=== PATIENT | female | born 1970 | race Caucasian/White ===

== ENCOUNTER → 2016-09-22 | Outpatient (CLI) | payer OTHER ==
--- NOTE | 2016-09-22 14:20 | XR ---
EXAMINATION TYPE: XR chest 2V DATE OF EXAM: 09/22/2016 2:12 PM COMPARISON: 12/07/2015 HISTORY: Shortness of breath TECHNIQUE: Frontal and lateral views of the chest are obtained. FINDINGS: There is no focal air space opacity, pleural effusion, or pneumothorax seen. The cardiac silhouette size is within normal limits. The osseous structures are intact. IMPRESSION: No acute cardiopulmonary process.
--- NOTE | 2016-09-22 14:21 | NM ---
EXAMINATION TYPE: NM pul vent and perfuse DATE OF EXAM: 09/22/2016 2:04 PM COMPARISON: NONE HISTORY: Shortness of breath TECHNIQUE: Utilizing inhalation of 68.7 mCi Tc 99m DTPA aerosol and intravenous injection of 5.5 mCi of Tc 99m MAA, ventilation and perfusion images are acquired post injection in multiple projections. FINDINGS: Normal radiotracer distribution is noted in the lungs. There is no evidence of mismatched defects. IMPRESSION: Very low probability for pulmonary embolism.
== END | disposition home or self-care (01) ==
LOC: RADNMMAIN 13:04
PROVIDERS: ATTEND Internal Medicine Pulmonary Disease
DX: J45.909 Unspecified asthma, uncomplicated (principal); I26.99 Other pulmonary embolism without acute cor pulmonale
CPT/HCPCS: 71020; 78582; A9540; A9567

== ENCOUNTER → 2016-09-29 | Outpatient (CLI) | payer OTHER ==
[2016-09-29 12:08] LABS: CH 30.3; CHCM 35.2; HCT 41.5 % (34.0-46.0); HGB 14.2 gm/dL (11.4-16.0); MCH 29.7 pg (25.0-35.0); MCHC 34.3 g/dL (31.0-37.0); MCV 86.6 fL (80.0-100.0); Mean Platelet Volume 7.4; RBC 4.79 m/uL (3.80-5.40); RDW 13.4 % (11.5-15.5); WBC 8.1 k/uL (3.8-10.6)
[2016-09-29 12:33] LABS: Anion Gap 12 mmol/L; Blood Urea Nitrogen 15 mg/dL (7-17); Calcium 9.7 mg/dL (8.4-10.2); Carbon Dioxide 30 mmol/L (22-30); Chloride 100 mmol/L (98-107); Glucose 136 mg/dL (74-99); Non-African American GFR(MDRD) >60 (>60 ml/min/1.73 sqM); Potassium 3.9 mmol/L (3.5-5.1); Sodium 142 mmol/L (137-145)
== END | disposition home or self-care (01) ==
LOC: LABWHC1 11:16
PROVIDERS: ATTEND Internal Medicine Interventional Cardiology
DX: Z01.812 Encounter for preprocedural laboratory examination (principal); R07.9 Chest pain, unspecified; I27.2 Other secondary pulmonary hypertension
CPT/HCPCS: 36415; 80048; 84439; 84443; 85027

== ENCOUNTER 2016-10-17 06:31 | Day surgery (SDC) | payer OTHER ==
[2016-10-14 10:28] VITALS: BMI 37.4
[~2016-10-17 06:31] MED LIST: ALPRAZolam 0.25 MG TAB PO PRN; ASPIRIN 325 MG TAB PO ONE; SODIUM CHLORIDE 0.9% 1,000 ML in EMPTY BAG 1 BAG IV ONE
[2016-10-17 07:17] VITALS: PULSE 80; RESP 20; TEMP 98.4
[2016-10-17] MEDS ORDERED: IV FLUID CONTINUATION 1,000 ML IV ONE (07:20)
[2016-10-17] MEDS ORDERED: LIDOCAINE 2% INJ 20 MG/ML (20 ML MDV) ONE (07:25)
[2016-10-17] MEDS ORDERED: diphenhydrAMINE 50 MG/ML 1 ML VIAL ONE (07:36)
[2016-10-17] MEDS ORDERED: MIDAZOLAM 2 MG/2 ML VIAL ONE (07:36)
[2016-10-17] MEDS ORDERED: diphenhydrAMINE 50 MG/ML 1 ML VIAL IVP ONE (07:46)
[2016-10-17] MEDS: MIDAZOLAM 2 MG/2 ML VIAL IV ONE ×2 (07:46→07:53)
[2016-10-17] MEDS ORDERED: LIDOCAINE 2% INJ 20 MG/ML SQ ONE (07:51)
[2016-10-17 08:18] LABS: Site RV
[2016-10-17 08:18] LABS: Site RA
[2016-10-17 08:19] LABS: Site PA
[2016-10-17 08:24] LABS: Site RV
[2016-10-17] MEDS ORDERED: RX INFO: IV CONTRAST WAS GIVEN 1 EACH MISC MISCELLANE PRN (08:43)
[2016-10-17] MEDS ORDERED: SODIUM CHLORIDE 0.9% 1,000 ML IV SCH ×2 (08:45)
--- NOTE | 2016-10-17 09:22 | CC ---
DATE OF SERVICE: 10/17/2016 PROCEDURE: Right heart catheterization, oxygen saturation and cardiac output measurement. PERFORMED BY: Dr. Skye Cali. CLINICAL INFORMATION: Mrs. Mini Hilton is a 46-year-old lady with significant shortness of breath under the care of pulmonary hypertension specialist, Dr. Banegas. She was advised to have a right heart catheterization to assess precise measurements for pulmonary hypertension assessment. She had a Lexiscan stress test that was negative and her echo revealed preserved systolic function. PROCEDURE NOTE: Under local anesthesia and strict aseptic precautions, an 8-Moldovan introducer was placed in the right femoral artery. I performed a right heart catheterization using a balloon-tipped flotation catheter. Thermodilution cardiac outputs were obtained. I also obtained a Herson cardiac output using an oxygen saturation 96% obtained by pulse oximeter on room air. Patient tolerated the procedure well. The sheath was taken out. Manual compression used to secure hemostasis and she was sent to the room in a stable condition. Results were discussed with the patient and her friend. CARDIAC CATHETERIZATION FINDINGS: The right atrial pressure was 5 mmHg. Right ventricular pressure was 28/5. The pulmonary arterial pressure was 28/13 with a mean of 19. Pulmonary capillary wedge pressure mean was 10 mmHg. This translated into a transpulmonary gradient of 9 mmHg and pulmonary vascular resistance of about 1.3 wood units. The thermodilution cardiac output was 6.7 L and Herson cardiac output was about 5 L. The pulmonary arterial saturation was 73% and I used a femoral arterial saturation of 96% as ( ) value based on pulse oximeter measurement on room air. This patient does not have any significant pulmonary hypertension based on above hemodynamics. Results were discussed with the patient and she will be discharged later on today.
--- NOTE | 2016-10-17 09:27 | LTR ---
October 17, 2016 RE: Mnii Hilton Dear Dr. Banegas, Dr. Bryant and Dr. Valencia: I am hereby sending you a cardiac cath report on Mrs. Mini Hilton. This lady had a right heart catheterization. The hemodynamics suggest that there is no evidence of any pulmonary hypertension. The transpulmonary gradient is 9 mmHg. The pulmonary vascular resistance is normal. Patient tolerated the procedure uneventfully and will be discharged later on today. Thank you for your referral. Please call for questions. With kindest regards. Sincerely yours, WHIT ESTRADA MD
[2016-10-17 14:14] VITALS: BP 116/66
== END 2016-10-17 14:14 | disposition home or self-care (01) ==
LOC: CATHCVL 06:31
PROVIDERS: ATTEND Internal Medicine Interventional Cardiology
DX: I27.2 Other secondary pulmonary hypertension (principal); R06.02 Shortness of breath; R07.89 Other chest pain; E66.9 Obesity, unspecified; Z82.49 Family history of ischemic heart disease and other diseases of the circulatory system; Z68.37 Body mass index [BMI] 37.0-37.9, adult; Z79.899 Other long term (current) drug therapy
CPT/HCPCS: 93451; 85018; 82810; C1894 ×2; C1769 ×2; J2001; J2250; J1200

== ENCOUNTER → 2016-10-30 | Outpatient (CLI) | payer OTHER | END | disposition home or self-care (01) | LOC: LABWHC1 08:39 | PROVIDERS: ATTEND Internal Medicine Sleep Medicine | DX: D86.9 Sarcoidosis, unspecified (principal) | CPT/HCPCS: 36415; 82164 ==

== ENCOUNTER → 2016-11-01 | Outpatient (CLI) | payer OTHER ==
--- NOTE | 2016-11-03 13:10 | PE ---
Nuclear medicine PET/CT HISTORY: Lung carcinoma Patient received 13.6 mCi of F-18 FDG intravenously. Delayed scanning from the skull base through the mid thighs. Localization and attenuation correction CT scan was performed on exam correlated to [facility] CT 13 June 2016 FINDINGS: Neck and chest: There is no evident adenopathy, no suspicious hypermetabolic uptake. No evident lung nodule. No pleural or pericardial effusion. Some strand-like densities may reflect scarring, atelecta sis within the lungs. Abdomen pelvis: There is no adrenal mass. No suspicious hypermetabolic uptake. Liver shows low attenu ation possibly due to fatty infiltration. No retroperitoneal adenopathy. Retroaortic left renal vein. Nonobstructive renal calculus present right kidney measuring only 3 to 4 mm. There is a small hiatal hernia. No suspicious hypermetabolic uptake. Osseous structures: Unremarkable IMPRESSION: No suspicious hypermetabolic uptake.
== END | disposition home or self-care (01) ==
LOC: RADPETMAIN 07:56
PROVIDERS: ATTEND Internal Medicine Sleep Medicine
DX: C34.90 Malignant neoplasm of unspecified part of unspecified bronchus or lung (principal)
CPT/HCPCS: 78815; A9552

== ENCOUNTER 2016-12-12 09:53 | Day surgery (SDC) | payer OTHER ==
[2016-12-10 09:46] VITALS: BMI 37.1
[~2016-12-12 09:53] MED LIST changes: -ALPRAZolam 0.25 MG TAB PO PRN; -ASPIRIN 325 MG TAB PO ONE; +LACTATED RINGERS 1,000 ML IV SCH; -SODIUM CHLORIDE 0.9% 1,000 ML in EMPTY BAG 1 BAG IV ONE
[2016-12-12 10:22] VITALS: TEMP 98.8
[2016-12-12] MEDS ORDERED: LIDOCAINE 1% 20 ML VIAL (10MG/ML) FOR IV START INTRADERMA ONE (10:27)
[2016-12-12] MEDS ORDERED: PROPOFOL 10 MG/ML 20 ML VIAL IV ONE (10:30)
[2016-12-12] MEDS ORDERED: LIDOCAINE 1% INJ 10MG/ML (20 ML MDV) ONE (10:30)
--- NOTE | 2016-12-12 10:32 | P.GSHP ---
History of Present Illness H&P Date: 12/12/16 Chief Complaint: GERD This a 38-year-old female referred from Emma Farrar. Patient presents today for EGD. She's had history of GERD. - Constitutional Constitutional: Reports as per HPI Past Medical History Past Medical History: Eye Disorder, GERD/Reflux, Hypertension, Sleep Apnea/CPAP/ BIPAP Additional Past Medical History / Comment(s): migraines, hx aspiration while under anesthesia,. get SOB, no CPAP yet, NARROW LENS GLAUCOMA History of Any Multi-Drug Resistant Organisms: None Reported Past Surgical History: Breast Surgery, Heart Catheterization, Hysterectomy Additional Past Surgical History / Comment(s): narendra breast reduction, NARENDRA eye laser surgery Past Anesthesia/Blood Transfusion Reactions: Previous Problems w/ Anesthesia, Motion Sickness, Postoperative Nausea & Vomiting (PONV) Additional Past Anesthesia/Blood Transfusion Reaction / Comment(s): aspiration while under anesthesia for colonoscopy Past Psychological History: Anxiety Smoking Status: Never smoker Past Alcohol Use History: Occasional Past Drug Use History: None Reported - Past Family History Brother(s) Family Medical History: Cancer Medications and Allergies Home Medications Medication Instructions Recorded Confirmed Type ALPRAZolam [Xanax] 0.5 mg PO DIRECTED PRN 10/14/16 12/12/16 History Ergocalciferol (Vitamin D2) 50,000 unit PO WE 10/14/16 12/12/16 History [Vitamin D2] Hydrochlorothiazide [Hydrodiuril] 25 mg PO DAILY 10/14/16 12/12/16 History Omeprazole [PriLOSEC] 40 mg PO QAM 10/14/16 12/12/16 History Allergies Allergy/AdvReac Type Severity Reaction Status Date / Time No Known Allergies Allergy Verified 12/12/16 10:16 Surgical - Exam Vital Signs Temp Pulse Resp BP Pulse Ox 98.8 F 83 16 141/83 96 12/12/16 10:16 12/12/16 10:16 12/12/16 10:16 12/12/16 10:16 12/12/16 10:16 - General well developed, no distress - Eyes PERRL - ENT normal pinna - Neck no masses - Respiratory normal expansion - Cardiovascular Rhythm: regular - Abdomen Abdomen: soft, non tender Assessment and Plan Plan: GERD. We'll perform EGD.
--- NOTE | 2016-12-12 10:40 | P.OP ---
Date of Procedure: 12/12/16 Preoperative Diagnosis: GERD Postoperative Diagnosis: Antral gastritis Hiatal hernia Esophagitis Procedure(s) Performed: EGD Anesthesia: MAC Surgeon: Collin Plaza Pathology: other (Antrum esophagus) Condition: stable Disposition: PACU Description of Procedure: Patient's placed on the endoscopy table in the lateral position. She received IV sedation. The gastroscope some placed oropharynx passed in the esophagus and stomach. The scope was then placed through the pylorus. The first and second portion of the duodenum appeared normal. Scope was then brought back the antrum and a biopsy was performed. This appeared mildly inflamed. The scope was unretroflexed and remainder of the stomach appeared normal. There was a hiatal hernia visualized. The GE junction was at 38 cm. The distal esophagus appeared mildly inflamed a biopsies performed. The proximal esophagus appeared normal. Scope was withdrawn for patient.
[2016-12-12 10:44] VITALS: RESP 18
[2016-12-12 11:00] VITALS: BP 122/78; PULSE 88
== END 2016-12-12 11:12 | disposition home or self-care (01) ==
LOC: ORWHC2ENDO 09:53
PROVIDERS: ATTEND Surgery
DX: K29.50 Unspecified chronic gastritis without bleeding (principal); K21.0 Gastro-esophageal reflux disease with esophagitis; K20.0 Eosinophilic esophagitis; K44.9 Diaphragmatic hernia without obstruction or gangrene; F41.9 Anxiety disorder, unspecified; G47.33 Obstructive sleep apnea (adult) (pediatric)
CPT/HCPCS: 88305; 88342; 43239; J2001; J2704

== ENCOUNTER → 2017-03-06 | Outpatient (CLI) | payer OTHER ==
[2017-03-06 13:26] LABS: EKG EKG PERFORMED
[2017-03-06 14:00] LABS: Anion Gap 10 mmol/L; Carbon Dioxide 25 mmol/L (22-30); Chloride 106 mmol/L (98-107); Potassium 4.2 mmol/L (3.5-5.1); Sodium 141 mmol/L (137-145)
== END | disposition home or self-care (01) ==
LOC: LABPAT 13:17
PROVIDERS: ATTEND Surgery
DX: Z01.810 Encounter for preprocedural cardiovascular examination (principal); Z01.812 Encounter for preprocedural laboratory examination
CPT/HCPCS: 36415; 80051; 93005

== ENCOUNTER 2017-03-12 07:40 | Inpatient (IN) | payer OTHER ==
[~2017-03-12 07:40] MED LIST changes: +DEXAMETHASONE SOD PHOSPHATE 10 MG/ML 1 ML VIAL IV ONE; +HEPARIN SODIUM,PORCINE 5,000 UNIT/ML 1 ML VIAL SQ ONE; +ONDANSETRON 4 MG/2 ML VIAL IVP ONE; +ceFAZolin 2 GM in SODIUM CHLORIDE 0.9% 100 ML IVPB ONE
[2017-03-12] MEDS ORDERED: GLYCOPYRROLATE 0.2 MG/ML 2 ML VIAL ONE (09:31)
[2017-03-12] MEDS ORDERED: SUCCINYLCHOLINE CHLORIDE 100 MG/5 ML SYR IV ONE (09:31)
[2017-03-12] MEDS ORDERED: LIDOCAINE 1% INJ 10MG/ML (20 ML MDV) ONE (09:31)
[2017-03-12] MEDS ORDERED: PROPOFOL 10 MG/ML 20 ML VIAL IV ONE (09:31)
[2017-03-12] MEDS ORDERED: fentaNYL (PF) 50 MCG/ML 2 ML AMP ONE (09:31)
[2017-03-12] MEDS ORDERED: NEOSTIGMINE 1 MG/ML 10 ML VIAL ONE (09:31)
[2017-03-12] MEDS ORDERED: VECURONIUM 10 MG VIAL IV ONE (09:31)
[2017-03-12] MEDS ORDERED: MIDAZOLAM 2 MG/2 ML VIAL ONE (09:31)
[2017-03-12] MEDS ORDERED: LIDOCAINE 1% 20 ML VIAL (10MG/ML) FOR IV START INTRADERMA ONE (09:55)
[2017-03-12 10:05] LABS: Basophils % (A) 0 %; CH 30.9; CHCM 35.5; Eosinophils # (A) 0.1 k/uL (0-0.7); Eosinophils % (A) 1 %; HCT 39.3 % (34.0-46.0); HDW 2.83; HGB 13.7 gm/dL (11.4-16.0); Luc % (Auto) 1; Lymphocytes # (A) 1.9 k/uL (1.0-4.8); Lymphocytes % (A) 27 %; MCH 30.5 pg (25.0-35.0); MCHC 34.9 g/dL (31.0-37.0); MCV 87.4 fL (80.0-100.0); Mean Platelet Volume 7.3; Monocytes # (A) 0.3 k/uL (0-1.0); Monocytes % (A) 4 %; Neutrophils # (A) 4.6 k/uL (1.3-7.7); Neutrophils % (A) 66 %; RBC 4.49 m/uL (3.80-5.40); RDW 14.2 % (11.5-15.5); WBC (Perox) 6.38
--- NOTE | 2017-03-12 10:16 | P.GSHP ---
History of Present Illness H&P Date: 03/12/17 Chief Complaint: GERD This a 38-year-old female for referred from Dr. Valencia.The patient has had long-standing problems with reflux esophagitis. The patient underwent recent EGD is found have evidence of esophagitis. Patient has been well informed on the procedure of laparoscopic Bayron fundoplication. The patient is aware the risk of the conversion to the open procedure, risk of injury to the stomach, liver and spleen. The patient is also a risk of recurrent GERD and dysphagia symptoms. The patient understands there is a postoperative diet of full liquids for 2 weeks after surgery. Past Medical History Past Medical History: Asthma, COPD, Eye Disorder, GERD/Reflux, Hypertension, Sleep Apnea/CPAP/BIPAP Additional Past Medical History / Comment(s): migraines, NARROW LENS GLAUCOMA, History of Any Multi-Drug Resistant Organisms: None Reported Past Surgical History: Breast Surgery, Heart Catheterization, Hysterectomy Additional Past Surgical History / Comment(s): narendra breast reduction, NARENDRA eye laser surgery Past Anesthesia/Blood Transfusion Reactions: Previous Problems w/ Anesthesia, Motion Sickness, Postoperative Nausea & Vomiting (PONV) Additional Past Anesthesia/Blood Transfusion Reaction / Comment(s): aspiration while under anesthesia for colonoscopy Smoking Status: Never smoker - Past Family History Brother(s) Family Medical History: Cancer Additional Family Medical History / Comment(s): COLON CANCER Medications and Allergies Home Medications Medication Instructions Recorded Confirmed Type ALPRAZolam [Xanax] 0.5 mg PO BID 10/14/16 03/04/17 History Ergocalciferol (Vitamin D2) 50,000 unit PO WE 10/14/16 03/12/17 History [Vitamin D2] Hydrochlorothiazide [Hydrodiuril] 25 mg PO DAILY 10/14/16 03/12/17 History Omeprazole [PriLOSEC] 40 mg PO QAM 10/14/16 03/12/17 History Albuterol Nebulized [Ventolin 2.5 mg INHALATION Q6H 03/04/17 03/12/17 History Nebulized] Albuterol Sulfate [Ventolin Hfa] 2 puff INHALATION Q6H PRN 03/04/17 03/12/17 History Biotin 20,000 mcg PO DAILY 03/04/17 03/12/17 History SUMAtriptan SUCCINATE [Imitrex] 100 mg PO BID PRN 03/04/17 03/12/17 History hydrOXYzine PAMOATE [Vistaril] 25 mg PO Q6H PRN 03/04/17 03/12/17 History Allergies Allergy/AdvReac Type Severity Reaction Status Date / Time No Known Allergies Allergy Verified 03/12/17 09:30 Surgical - Exam Vital Signs Temp Pulse Resp BP Pulse Ox 98.8 F 83 18 117/80 94 L 03/12/17 09:48 03/12/17 09:48 03/12/17 09:48 03/12/17 09:48 03/12/17 09:48 - General well developed, no distress - Eyes PERRL - ENT normal pinna - Neck no masses - Respiratory normal expansion - Cardiovascular Rhythm: regular - Abdomen Abdomen: soft, non tender Results - Labs 03/12/17 09:57 Assessment and Plan Plan: GERD. We will perform laparoscopic Bayron fundal plication.
[2017-03-12] MEDS ORDERED: BUPIVACAIN-EPI 0.5%-1:200,000 30 ML VIAL SQ ONE (10:54)
[2017-03-12] MEDS ORDERED: HYDROmorphone 1 MG/ML 1 ML SYRINGE IVP PRN (11:21)
[2017-03-12] MEDS ORDERED: ONDANSETRON 4 MG/2 ML VIAL IVP PRN (11:21)
--- NOTE | 2017-03-12 11:21 | P.OP ---
Date of Procedure: 03/12/17 Preoperative Diagnosis: GERD Postoperative Diagnosis: GERD Procedure(s) Performed: Laparoscopic Bayron fundal plication Implants: Anesthesia: OTIS Surgeon: Collin Plaza Estimated Blood Loss (ml): 5 Pathology: none sent Condition: stable Disposition: PACU Indications for Procedure: Operative Findings: Description of Procedure: The patient was placed on the operating table in the supine position. The patient received general anesthesia. And was placed in dorsal lithotomy position. The patient was prepped and draped in the usual sterile fashion. The skin incision sites were anesthetized with 1% local Xylocaine. The skin was incised in the left periumbilical area and then using a blade less 5 mm trocar under direct visualization panel cavity was entered. After adequate insufflation the laparoscope was then placed into the peritoneal cavity. Next a 5 mm trochars placed in the right epigastric position. Another 5 millimeter trocar the right lateral position. Another 5 millimeter trocar in the left lateral position a 5 mm trocar is placed in the left epigastric position. And then the initial 5 mm trocar was exchanged for a 10 mm trocar. The left lateral lobe liver was retracted. The hernia was seen. The crural defect was then dissected using the Harmonic scissors device. A 360 crural dissection was performed the esophagus stomach was reduced back into the peritoneal Cavity. The crural defect was then closed using 2-0 Ethibond suture. Next the fundus of the stomach was mobilized using the Rincon scissors device. and then a 58-Moroccan bougie dilator was placed oropharynx passed into the esophagus and stomach the fundal plication wrap was then performed by grasping the fundus posteriorly and bringing it around the esophagus and stomach fundoplication was then performed using 2-0 Ethibond suture. Care was taken that the fundal location rested over top of the intra-abdominal esophagus. There was no injury seen to the stomach or esophagus. The dilator was then withdrawn. The abdomen was irrigated there is no bleeding seen. The trochars were then withdrawn and then skin incision sites were closed using 3-0 Monocryl suture Steri-Strips are applied. Patient thought procedure well and sent to recovery room in stable condition.
[2017-03-12] MEDS: HYDROmorphone 1 MG/ML 1 ML SYRINGE IVP PRN ×3 (11:59→12:23)
[2017-03-12] MEDS: D5-0.45% NACL WITH KCL 20MEQ/L 1,000 ML IV SCH ×2 (13:22→21:30)
[2017-03-12] MEDS ORDERED: SUMAtriptan SUCCINATE 50 MG TAB PO PRN (15:39)
--- NOTE | 2017-03-12 15:46 | P.CONS ---
History of Present Illness - Reason for Consult Consult date: 03/12/17 Medical management Requesting physician: Collin Plaza - Chief Complaint Status post Bayron fundoplication - History of Present Illness This is a 46-year-old female with a known history of asthma, COPD, GERD, hypertension, obstructive sleep apnea and migraines. She presents to the hospital to undergo a laparoscopic Bayron fundoplication. she had procedure completed today with Dr. Plaza. Estimated blood loss 5ml. Patient tolerated surgery well. Patient is complaining of upper chest and shoulder pains. This is likely gas pain. Patient does not have any cardiac history. They will be getting her up to ambulate shortly and that she'll help relieve her symptoms. She denies any shortness of breath. Denies any nausea or vomiting. Denies any irregular bowel movements prior to surgery. And denies any urinary symptoms. Review of Systems Physical HPI otherwise unremarkable Past Medical History Past Medical History: Asthma, COPD, Eye Disorder, GERD/Reflux, Hypertension, Sleep Apnea/CPAP/BIPAP Additional Past Medical History / Comment(s): migraines, NARROW LENS GLAUCOMA, History of Any Multi-Drug Resistant Organisms: None Reported Past Surgical History: Breast Surgery, Heart Catheterization, Hysterectomy Additional Past Surgical History / Comment(s): narendra breast reduction, NARENDRA eye laser surgery Past Anesthesia/Blood Transfusion Reactions: Previous Problems w/ Anesthesia, Motion Sickness, Postoperative Nausea & Vomiting (PONV) Additional Past Anesthesia/Blood Transfusion Reaction / Comm: aspiration while under anesthesia for colonoscopy Smoking Status: Never smoker - Past Family History Brother(s) Family Medical History: Cancer Additional Family Medical History / Comment(s): COLON CANCER Medications and Allergies Home Medications Medication Instructions Recorded Confirmed Type ALPRAZolam [Xanax] 0.5 mg PO BID 10/14/16 03/12/17 History Ergocalciferol (Vitamin D2) 50,000 unit PO WE 10/14/16 03/12/17 History [Vitamin D2] Hydrochlorothiazide [Hydrodiuril] 25 mg PO DAILY 10/14/16 03/12/17 History Omeprazole [PriLOSEC] 40 mg PO QAM 10/14/16 03/12/17 History Albuterol Nebulized [Ventolin 2.5 mg INHALATION RT-Q6H 03/04/17 03/12/17 History Nebulized] Albuterol Sulfate [Ventolin Hfa] 2 puff INHALATION RT-Q6H PRN 03/04/17 03/12/17 History Biotin 20,000 mcg PO DAILY 03/04/17 03/12/17 History SUMAtriptan SUCCINATE [Imitrex] 100 mg PO BID PRN 03/04/17 03/12/17 History hydrOXYzine PAMOATE [Vistaril] 25 mg PO Q6H PRN 03/04/17 03/12/17 History Allergies Allergy/AdvReac Type Severity Reaction Status Date / Time No Known Allergies Allergy Verified 03/12/17 14:50 Physical Exam Vitals: Vital Signs Temp Pulse Pulse Resp BP BP Pulse Ox 03/12/17 14:15 72 19 102/72 95 03/12/17 13:50 63 19 114/66 90 L 03/12/17 13:45 64 19 116/75 95 03/12/17 13:15 74 19 121/72 96 03/12/17 13:00 97.6 F 72 19 122/66 93 L 03/12/17 12:36 83 16 127/69 95 03/12/17 12:23 77 16 140/83 95 03/12/17 12:08 72 16 136/81 100 03/12/17 11:53 70 16 144/78 03/12/17 11:38 85 16 142/80 95 03/12/17 11:29 98.0 F 101 H 12 145/80 92 L 03/12/17 09:48 98.8 F 83 18 117/80 94 L Intake and Output 03/12/17 03/12/17 03/12/17 06:59 14:59 22:59 Intake Total 1000 Output Total 10 Balance 990 Intake: IV 900 Oral 100 Output: Estimated Blood Loss 10 Other: Voiding Method Toilet Weight 104.326 kg Patient Weight 03/13/17 06:59 Weight 104.326 kg Head normocephalic Neck supple Lungs crackles and diminished breath sounds on the right Heart regular rate and rhythm S1-S2, no rub or gallop Abdomen is soft nontender nondistended positive bowel sounds no hepatosplenomegaly. Incision sites some minimal dried blood noted Extremities no edema Neuro alert and orientated to 3 Results CBC & Chem 7: 03/12/17 09:57 Assessment and Plan Plan: 1. GERD status post Bayron fundoplication postop day #0 2. History of COPD: Stable no evidence of exacerbation. Resume nebulizer treatments 3. Upper chest and shoulder discomfort likely related to gas pains. Encouraged patient to ambulate. We'll continue to monitor. No previous cardiac history 4. Generalized anxiety disorder: We'll resume her Xanax. At this time hold the Vistaril since patient just had anesthesia for her procedure 5. Obstructive sleep apnea uses CPAP at home 6. History of migraines we'll resume the Imitrex as needed 7. Essential hypertension resume her hydrochlorothiazide GI prophylaxis Protonix and DVT prophylaxis Lovenox Thank you for this consultation. We will continue to follow along with you. We 'll check routine labs in the morning Time with Patient: Greater than 30 (Greater than 50% of the total time spent in counseling and coordination of care.I performed an examination of the patient and discussed their management with the physician Tail Trimmer. I have reviewed the Physician Tail Trimmer's notes and agree with the documented findings and plan of care)
--- NOTE | 2017-03-12 17:13 | FL ---
SINGLE CONTRAST ESOPHAGRAM CLINICAL HISTORY: 46-year-old female rule out leak/obstruction, status post Bayron fundoplication. TECHNIQUE: Single contrast exam performed with 10 ml Omnipaque 350 contrast. Total fluoroscopy time: 11 seconds. Total fluoroscopic images: 12 FINDINGS: Exam was prematurely terminated. After only 1 swallow of 10 mL, the patient became immediately nauseo us and began retching. The images seen after the patient swallowed shows contrast pooling within the lower esophagus without any further passage. The patient was seated. After approximately 3 minutes, t he patient stood to be reimaged. There is small amount of residual contrast in the distal esophagus w ith contrast Siemens extending into the stomach across the Bayron fundoplication. No leak is seen wit h this limited amount of contrast. Trace post surgical free air along the right hemidiaphragm. IMPRESSION: Exam prematurely terminated as the patient became immediately nauseous and began retching after only 1 small swallow of contrast. Findings suggest a moderate postoperative obstruction. There is eventual partial passage into the stomach. The small amount of contrast shows no clear evidence for leak. The exam can be repeated if indicated. Trace postsurgical free air on the right.
[2017-03-12 18:22] VITALS: BMI 37.0
[2017-03-12] MEDS ORDERED: ALBUTEROL NEBULIZED 2.5 MG/3 ML INHALATION SCH (20:00)
[2017-03-12] MEDS: ALPRAZolam 0.5 MG TAB PO SCH (21:45)
[2017-03-12] MEDS ORDERED: IPRATROPIUM-ALBUTEROL 3 ML NEB INHALATION PRN (23:00)
[2017-03-13] MEDS: D5-0.45% NACL WITH KCL 20MEQ/L 1,000 ML IV SCH ×2 (05:00→12:41)
[2017-03-13 06:58] LABS: Basophils % (A) 0 %; CH 30.2; CHCM 34.6; Eosinophils # (A) 0.1 k/uL (0-0.7); Eosinophils % (A) 1 %; HCT 39.3 % (34.0-46.0); HDW 2.79; HGB 13.8 gm/dL (11.4-16.0); Luc # (Auto) 0.13; Luc % (Auto) 1; Lymphocytes # (A) 1.9 k/uL (1.0-4.8); Lymphocytes % (A) 19 %; MCH 30.7 pg (25.0-35.0); MCHC 35.1 g/dL (31.0-37.0); MCV 87.5 fL (80.0-100.0); Mean Platelet Volume 7.1; Monocytes # (A) 0.4 k/uL (0-1.0); Monocytes % (A) 4 %; Neutrophils # (A) 7.4 k/uL (1.3-7.7); Neutrophils % (A) 75 %; RBC 4.49 m/uL (3.80-5.40); RDW 13.8 % (11.5-15.5); WBC 9.9 k/uL (3.8-10.6); WBC (Perox) 10.43
[2017-03-13 07:14] LABS: ALT 58 U/L (9-52); AST 49 U/L (14-36); Alkaline Phosphatase 75 U/L (38-126); Anion Gap 9 mmol/L; Blood Urea Nitrogen 11 mg/dL (7-17); Calcium 9.5 mg/dL (8.4-10.2); Carbon Dioxide 27 mmol/L (22-30); Chloride 105 mmol/L (98-107); Glucose 132 mg/dL (74-99); Non-African American GFR(MDRD) >60 (>60 ml/min/1.73 sqM); Potassium 4.4 mmol/L (3.5-5.1); Sodium 141 mmol/L (137-145); Total Bilirubin 1.2 mg/dL (0.2-1.3); Total Protein 7.3 g/dL (6.3-8.2)
[2017-03-13] MEDS ORDERED: PANTOPRAZOLE 40 MG TABLET PO SCH (07:30)
[2017-03-13] MEDS: ALPRAZolam 0.5 MG TAB PO SCH (08:45)
[2017-03-13] MEDS ORDERED: ACETAMINOPHEN TAB 325 MG TAB PO PRN (08:49)
[2017-03-13] MEDS ORDERED: HYDROCHLOROTHIAZIDE 25 MG TAB PO SCH (09:00)
[2017-03-13] MEDS ORDERED: ENOXAPARIN 40 MG/0.4 ML SYRINGE SQ SCH (09:00)
[2017-03-13] MEDS ORDERED: BIOTIN 20000 MCG PO SCH (09:00)
--- NOTE | 2017-03-13 09:33 | FL ---
EXAMINATION TYPE: FL esophagus cervic/pharynx DATE OF EXAM: 03/13/2017 HISTORY: Post Afshin fundoplication, severe stenosis previous day. COMPARISON: 03/12/2017 TECHNIQUE: Single contrast esophagram at the gastroesophageal junction FINDINGS: There appears to be moderate hesitancy of contrast passing through the gastroesophageal junction. Gas troesophageal junction however opens to an appropriate caliber during the exam. No persistent stenosi s is evident. Some spasm may be present as secondary contractions were observed without overt vomitin g during the exam. Esophagus however does completely empty into the stomach. No free air is evident. No extravasation of contrast is evident. IMPRESSION: 1. Moderate hesitancy passing through the Afshin fundoplication. 2. There appears to be improvement from the previous day.
[2017-03-13] MEDS ORDERED: BUTA/APAP/CAF/COD 50-325-40-30 CAP PO PRN (11:48)
--- NOTE | 2017-03-13 12:03 | P.PN ---
Subjective Status post Bayron fundoplication Patient is complaining of her migraine headaches today. And reported to nursing staff that the Imitrex she takes at home does not work. She was initially given Tylenol and had some mild improvement of the headache. I nursing staff just paged me and said that the headache is again now about 8 out of 10. Fioricet will be added. Patient had an esophagram this morning showing moderate hesitancy passing through the Bayron which is improved from yesterday' s study. She'll be meeting with the dietitian today. Patient does admit to some mild shortness of breath. She does have a history of obstructive sleep apnea and did not have her CPAP last night. She is passing gas. The upper shoulder and chest discomfort has now shown improvement. She denies any chest pain, nausea or vomiting. She is passing gas no bowel movement. Denies any burning with urination Objective - Vital Signs Vital signs: Vital Signs Temp 98.6 F 03/13/17 08:01 Pulse 86 03/13/17 08:01 Resp 18 03/13/17 08:01 BP 126/80 03/13/17 08:01 Pulse Ox 92 L 03/13/17 08:01 Intake & Output 03/12/17 03/13/17 03/13/17 18:59 06:59 18:59 Intake Total 1060 30 Output Total 10 30 Balance 1050 0 Weight 104.32 kg Intake: IV 900 Oral 160 30 Output: Emesis 30 Estimated Blood Loss 10 Other: Voiding Method Toilet Toilet # Voids 1 3 1 - Exam Head normocephalic Neck supple Lungs diminished bilaterally Heart regular rate and rhythm S1-S2, no rub or gallop Abdomen is soft nontender nondistended positive bowel sounds no hepatosplenomegaly Extremities no edema Neuro alert and orientated to 3 - Labs CBC & Chem 7: 03/13/17 06:46 03/13/17 06:46 Labs: Abnormal Lab Results - Last 24 Hours (Table) 03/13/17 Range/Units 06:46 Glucose 132 H (74-99) mg/dL AST 49 H (14-36) U/L ALT 58 H (9-52) U/L Assessment and Plan Plan: 1. GERD status post Bayron fundoplication postop day #1. Esophagram showing moderate hesitancy passing through Bayron, improved from yesterday's study. 2. History of COPD: Stable no evidence of exacerbation. Resume nebulizer treatments 3. Upper chest and shoulder discomfort likely related to gas pains. Encouraged patient to ambulate. We'll continue to monitor. No previous cardiac history. Symptoms have shown improvement 4. Generalized anxiety disorder: We'll resume her Xanax. At this time hold the Vistaril since patient just had anesthesia for her procedure 5. Obstructive sleep apnea uses CPAP at home. If patient stays another night recommend that she brings her CPAP from home 6. History of migraines Delbert reports that her Imitrex does not help. Still having headache after Tylenol. We'll add Fioricet. 7. Essential hypertension resume her hydrochlorothiazide 8. Mild elevation of LFTs likely reactive from surgery. Continue to monitor GI prophylaxis Protonix and DVT prophylaxis Lovenox I performed an examination of the patient and discussed their management with the physician Search And Rescue Officer. I have reviewed the Physician Search And Rescue Officer's notes and agree with the documented findings and plan of care
[2017-03-13 12:05] VITALS: BP 120/77; PULSE 89; TEMP 98.5
--- NOTE | 2017-03-13 14:51 | P.DS ---
Providers Date of admission: 03/12/17 08:58 Expected date of discharge: 03/13/17 Attending physician: Collin Plaza Consults: 03/12/17 11:21 Consult Physician Routine Consulting Provider: Delmy Zazueta Consult Reason/Comments: Medical management Do you want consulting provider notified?: Yes Primary care physician: Tara Valencia [facility] Course: This a 38-year-old female who underwent laparoscopic Bayron fundal plication. Patient did well postoperative. Discussed her for details. Procedures: Laparoscopic Bayron fundal plication Patient Condition at Discharge: Good Plan - Discharge Summary New Discharge Prescriptions: New Docusate [Colace] 100 mg PO BID #20 capsule HYDROcodone/APAP 7.5-325MG [[place] 7.5] 1 each PO Q4H PRN #60 tab PRN Reason: Pain No Action Hydrochlorothiazide [Hydrodiuril] 25 mg PO DAILY Ergocalciferol (Vitamin D2) [Vitamin D2] 50,000 unit PO WE ALPRAZolam [Xanax] 0.5 mg PO BID Omeprazole [PriLOSEC] 40 mg PO QAM Albuterol Sulfate [Ventolin Hfa] 2 puff INHALATION RT-Q6H PRN PRN Reason: Shortness Of Breath Albuterol Nebulized [Ventolin Nebulized] 2.5 mg INHALATION RT-Q6H Biotin 20,000 mcg PO DAILY hydrOXYzine PAMOATE [Vistaril] 25 mg PO Q6H PRN PRN Reason: Anxiety SUMAtriptan SUCCINATE [Imitrex] 100 mg PO BID PRN PRN Reason: Migraine Headache Discharge Medication List ALPRAZolam [Xanax] 0.5 mg PO BID 10/14/16 [History] Ergocalciferol (Vitamin D2) [Vitamin D2] 50,000 unit PO WE 10/14/16 [History] Hydrochlorothiazide [Hydrodiuril] 25 mg PO DAILY 10/14/16 [History] Omeprazole [PriLOSEC] 40 mg PO QAM 10/14/16 [History] Albuterol Nebulized [Ventolin Nebulized] 2.5 mg INHALATION RT-Q6H 03/04/17 [ History] Albuterol Sulfate [Ventolin Hfa] 2 puff INHALATION RT-Q6H PRN 03/04/17 [History] Biotin 20,000 mcg PO DAILY 03/04/17 [History] SUMAtriptan SUCCINATE [Imitrex] 100 mg PO BID PRN 03/04/17 [History] hydrOXYzine PAMOATE [Vistaril] 25 mg PO Q6H PRN 03/04/17 [History] Docusate [Colace] 100 mg PO BID #20 capsule 03/13/17 [Rx] HYDROcodone/APAP 7.5-325MG [[place] 7.5] 1 each PO Q4H PRN #60 tab 03/13/17 [Rx] Follow up Appointment(s)/Referral(s): Collin Plaza MD [STAFF PHYSICIAN] - 2 Weeks Activity/Diet/Wound Care/Special Instructions: Bayron diet. Follow diet as instructed by technical sales support manager. refer to diet sheets No heavy lifting or strenuous activity. be up and moving. NO strenuous house work Continue to use [employer] spirometery at home. May shower no tub baths or hot tubs. Call office for any fever,chills, increased pain not covered by pain meds, increased redness or drainage from puncture sites or any concerns. Last received Tylenol 650mg at 0900 Last received Fioricet at 1200 (contains codiene and 325mg of tylenol) No driving while on narcotics.
[2017-03-13 18:20] VITALS: RESP 20
[2017-03-18] MEDS ORDERED: ERGOCALCIFEROL 50,000 UNIT CAP PO SCH (09:00)
== END 2017-03-13 16:00 | disposition home or self-care (01) | DRG 328 ==
LOC: 2ORWHC 08:58 → 6PED 11:29
PROVIDERS: ADMIT Surgery; ATTEND Surgery
PROC: 0DV44ZZ Restriction of Esophagogastric Junction, Percutaneous Endoscopic Approach (ICD-10-PCS; principal; 2017-03-12 10:00)
DX: K21.0 Gastro-esophageal reflux disease with esophagitis (principal); I10 Essential (primary) hypertension; J44.9 Chronic obstructive pulmonary disease, unspecified; G43.909 Migraine, unspecified, not intractable, without status migrainosus; G47.33 Obstructive sleep apnea (adult) (pediatric); H40.20X0 Unspecified primary angle-closure glaucoma, stage unspecified; R13.10 Dysphagia, unspecified; R74.0 Nonspecific elevation of levels of transaminase and lactic acid dehydrogenase [LDH]; F41.1 Generalized anxiety disorder; R14.1 Gas pain; Z79.899 Other long term (current) drug therapy; Z80.0 Family history of malignant neoplasm of digestive organs; Z71.3 Dietary counseling and surveillance; Z90.710 Acquired absence of both cervix and uterus
CPT/HCPCS: 74210; 80053; 85025

== ENCOUNTER → 2017-04-09 | Outpatient (CLI) | payer OTHER | END | disposition home or self-care (01) | LOC: LABWHC1 12:45 | PROVIDERS: ATTEND Internal Medicine Pulmonary Disease | DX: J45.909 Unspecified asthma, uncomplicated (principal) | CPT/HCPCS: 36415; 82785 ==

== ENCOUNTER → 2017-05-28 | Outpatient (CLI) | payer OTHER ==
--- NOTE | 2017-05-28 11:49 | FL ---
EXAMINATION TYPE: FL barium swallow DATE OF EXAM: 05/28/2017 LIMITED ESOPHAGRAM: CLINICAL HISTORY: Persistent distal pain and dysphasia after Afshin fundoplication surgery March 12, 2017. TECHNIQUE: Limited esophagram is performed utilizing 20 oz of EZ Paque. A total of 3 seconds of fluo roscopic time was utilized during procedure. 20 spot images are saved. Comparison: Esophagram studies March 12 and March 13, 2017 immediately after surgery. FINDINGS: The patient swallowed contrast without difficulty or delay. Esophageal peristalsis and mo tility are within normal limits. There is good flow of contrast along the diaphragmatic hiatus into t he stomach, there is no evidence of contrast extravasation to suggest leak. No persistent hiatal riri ia is seen. Patient remains asymptomatic. IMPRESSION: No evidence of leak or significant obstruction status post Afshin fundoplication surgery roughly 10 weeks ago. Images are saved in 2 projections for referring surgeon.
== END | disposition home or self-care (01) ==
LOC: RADFLMAIN 11:00
PROVIDERS: ATTEND Surgery
DX: R13.10 Dysphagia, unspecified (principal)
CPT/HCPCS: 74220

== ENCOUNTER 2017-06-12 09:03 | Day surgery (SDC) | payer OTHER ==
[~2017-06-12 09:03] MED LIST changes: -DEXAMETHASONE SOD PHOSPHATE 10 MG/ML 1 ML VIAL IV ONE; -HEPARIN SODIUM,PORCINE 5,000 UNIT/ML 1 ML VIAL SQ ONE; +LIDOCAINE 1% 20 ML VIAL (10MG/ML) FOR IV START INTRADERMA PRN; -ONDANSETRON 4 MG/2 ML VIAL IVP ONE; -ceFAZolin 2 GM in SODIUM CHLORIDE 0.9% 100 ML IVPB ONE
[2017-06-12 09:34] VITALS: RESP 16; TEMP 98.5
[2017-06-12] MEDS ORDERED: fentaNYL (PF) 50 MCG/ML 2 ML AMP ONE (09:44)
[2017-06-12] MEDS ORDERED: PROPOFOL 10 MG/ML 20 ML VIAL IV ONE (09:44)
[2017-06-12] MEDS ORDERED: ONDANSETRON 4 MG/2 ML VIAL ONE (09:44)
[2017-06-12] MEDS ORDERED: LIDOCAINE 1% INJ 10MG/ML (20 ML MDV) ONE (09:44)
[2017-06-12] MEDS ORDERED: MIDAZOLAM 2 MG/2 ML VIAL ONE (09:44)
--- NOTE | 2017-06-12 10:01 | P.GSHP ---
History of Present Illness H&P Date: 06/12/17 Chief Complaint: Epigastric pain, dysphagia This is a 46-year-old female who has some complaints complaints of epigastric pain and some intermittent dysphagia. Patient had a hiatal hernia repair approximately 3 months ago. Her esophagram performed last week shows no evidence of recurrent hiatal hernia or obstruction. Patient's had some persisting pain symptoms. She presents today for EGD. Past Medical History Past Medical History: Asthma, COPD, Eye Disorder, GERD/Reflux, Hypertension, Sleep Apnea/CPAP/BIPAP Additional Past Medical History / Comment(s): migraines, NARROW LENS GLAUCOMA. DOES NOT USE CPAP. History of Any Multi-Drug Resistant Organisms: None Reported Past Surgical History: Breast Surgery, Heart Catheterization, Hysterectomy Additional Past Surgical History / Comment(s): narendra breast reduction, NARENDRA eye laser surgery Past Anesthesia/Blood Transfusion Reactions: Previous Problems w/ Anesthesia, Motion Sickness, Postoperative Nausea & Vomiting (PONV) Additional Past Anesthesia/Blood Transfusion Reaction / Comment(s): aspiration while under anesthesia for colonoscopy Past Psychological History: Anxiety, Depression, Panic Disorder Smoking Status: Never smoker Past Alcohol Use History: Occasional Past Drug Use History: None Reported - Past Family History Brother(s) Family Medical History: Cancer Additional Family Medical History / Comment(s): COLON CANCER Medications and Allergies Home Medications Medication Instructions Recorded Confirmed Type ALPRAZolam [Xanax] 0.5 mg PO BID 10/14/16 06/12/17 History Ergocalciferol (Vitamin D2) 50,000 unit PO WE 10/14/16 06/12/17 History [Vitamin D2] Hydrochlorothiazide [Hydrodiuril] 25 mg PO DAILY 10/14/16 06/12/17 History Albuterol Nebulized [Ventolin 2.5 mg INHALATION RT-Q6H 03/04/17 06/12/17 History Nebulized] Biotin 20,000 mcg PO DAILY 03/04/17 06/12/17 History Mometasone/Formoterol [Dulera 100 2 puff INHALATION BID 06/12/17 06/12/17 History Mcg/5 Mcg Inhaler] Montelukast [Singulair] 10 mg PO DAILY 06/12/17 06/12/17 History Umeclidinium [place] [Incruse 62.5 mcg INHALATION 06/12/17 06/12/17 History Ellipta] Allergies Allergy/AdvReac Type Severity Reaction Status Date / Time No Known Allergies Allergy Verified 06/12/17 09:33 Surgical - Exam Vital Signs Temp Pulse Resp BP Pulse Ox 98.5 F 67 16 129/85 98 06/12/17 09:33 06/12/17 09:33 06/12/17 09:33 06/12/17 09:33 06/12/17 09:33 - General well developed, no distress - Eyes PERRL - ENT normal pinna - Neck no masses - Respiratory normal expansion - Cardiovascular Rhythm: regular - Abdomen Abdomen: soft, non tender Results - Imaging Additional studies: Esophagram shows no evidence of obstruction or recurrent hiatal hernia. Assessment and Plan Plan: Epigastric pain, intermittent dysphagia. We'll perform EGD.
--- NOTE | 2017-06-12 10:07 | P.OP ---
Date of Procedure: 06/12/17 Preoperative Diagnosis: Epigastric pain Dysphagia Postoperative Diagnosis: Duodenitis Antral gastritis with ulceration No evidence of obstruction of GE junction No evidence of recurrent hiatal hernia Procedure(s) Performed: EGD Anesthesia: MAC Surgeon: Collin Plaza Pathology: other (Antrum, duodenum) Condition: stable Disposition: PACU Description of Procedure: The patient's placed on the endoscopy table in the lateral position. She received IV sedation. The gastroscope placed oropharynx and placed in the esophagus and stomach. Scope was then placed through the pylorus. First and second portion of the duodenum. Mildly inflamed and a biopsies performed. Scope was then brought back into the antrum and there was a small ulcer seen this was biopsied. The scope was unretroflexed and remainder stomach appeared normal. There was no evidence of recurrent hiatal hernia. The GE junction was at 47 is. No evidence of any obstruction of the GE junction. The distal esophagus. Normal. The proximal esophagus. Normal. Scope was withdrawn for patient
[2017-06-12 10:35] VITALS: BP 138/87; PULSE 64
== END 2017-06-12 10:54 | disposition home or self-care (01) ==
LOC: ORWHC2ENDO 09:03
PROVIDERS: ATTEND Surgery
DX: K25.9 Gastric ulcer, unspecified as acute or chronic, without hemorrhage or perforation (principal); K29.50 Unspecified chronic gastritis without bleeding; K29.80 Duodenitis without bleeding; R13.10 Dysphagia, unspecified; K21.9 Gastro-esophageal reflux disease without esophagitis; I10 Essential (primary) hypertension; F41.9 Anxiety disorder, unspecified; G43.909 Migraine, unspecified, not intractable, without status migrainosus; J45.909 Unspecified asthma, uncomplicated; J44.9 Chronic obstructive pulmonary disease, unspecified; G47.33 Obstructive sleep apnea (adult) (pediatric); Z87.01 Personal history of pneumonia (recurrent); Z79.899 Other long term (current) drug therapy; Z90.710 Acquired absence of both cervix and uterus
CPT/HCPCS: 43239; J2250; J2405; J2001; J3010; J2704; 88305; 88342

== ENCOUNTER 2017-12-04 08:49 | Day surgery (SDC) | payer OTHER ==
[2017-12-01 15:21] VITALS: BMI 29.2
--- NOTE | 2017-12-04 06:56 | P.GSHP ---
History of Present Illness H&P Date: 12/04/17 CHIEF COMPLAINT: GERD HISTORY OF PRESENT ILLNESS: The patient is a 47-year-old female who presents reports gastroesophageal reflux disease. Upper endoscopy was offered for further evaluation and management. PAST MEDICAL HISTORY: Please see list. PAST SURGICAL HISTORY: Please see list. MEDICATIONS: Please see list. ALLERGIES: Please see list. SOCIAL HISTORY: No illicit drug use FAMILY HISTORY: No reports of Crohn disease or ulcerative colitis. REVIEW OF ORGAN SYSTEMS: CONSTITUTIONAL: No reports of fevers or chills. GI: Denies any blood in stools or constipation. PHYSICAL EXAM: VITAL SIGNS: Stable GENERAL: Well-developed and pleasant in no acute distress. HEENT: No scleral icterus. Extraocular movements grossly intact. Moist buccal mucosa. NECK: Supple without lymphadenopathy. CHEST: Unlabored respirations. Equal bilateral excursions. CARDIOVASCULAR: Regular rate and rhythm. Distal 2+ pulses. ABDOMEN: Soft, nondistended. MUSCULOSKELETAL: No clubbing, cyanosis, or edema. ASSESSMENT: 1. Gastroesophageal reflux disease PLAN: 1. Recommend proceeding with an upper endoscopy Past Medical History Past Medical History: Asthma, COPD, Eye Disorder, GERD/Reflux, Hypertension, Sleep Apnea/CPAP/BIPAP Additional Past Medical History / Comment(s): migraines, NARROW LENS GLAUCOMA. DOES NOT USE CPAP. History of Any Multi-Drug Resistant Organisms: None Reported Past Surgical History: Breast Surgery, Hernia Repair, Hysterectomy Additional Past Surgical History / Comment(s): narendra breast reduction, NARENDRA eye laser surgery, COLONOSCOPY, ALEXIS PROCEDURE Past Anesthesia/Blood Transfusion Reactions: Previous Problems w/ Anesthesia, Motion Sickness, Postoperative Nausea & Vomiting (PONV) Additional Past Anesthesia/Blood Transfusion Reaction / Comment(s): aspiration while under anesthesia for colonoscopy Smoking Status: Never smoker - Past Family History Brother(s) Family Medical History: Cancer Additional Family Medical History / Comment(s): COLON CANCER Medications and Allergies Home Medications Medication Instructions Recorded Confirmed Type ALPRAZolam [Xanax] 0.5 mg PO BID 10/14/16 12/01/17 History Ergocalciferol (Vitamin D2) 50,000 unit PO WE 10/14/16 12/01/17 History [Vitamin D2] Hydrochlorothiazide [Hydrodiuril] 25 mg PO DAILY 10/14/16 12/01/17 History Albuterol Nebulized [Ventolin 2.5 mg INHALATION RT-Q6H 03/04/17 12/01/17 History Nebulized] Biotin 20,000 mcg PO DAILY 03/04/17 12/01/17 History Mometasone/Formoterol [Dulera 100 2 puff INHALATION BID 06/12/17 12/01/17 History Mcg/5 Mcg Inhaler] Montelukast [Singulair] 10 mg PO HS 06/12/17 12/01/17 History Omeprazole 40 mg PO DAILY #60 capsule. 06/12/17 12/01/17 Rx Umeclidinium [place] [Incruse 62.5 mcg INHALATION QAM 06/12/17 12/01/17 History Ellipta] Allergies Allergy/AdvReac Type Severity Reaction Status Date / Time No Known Allergies Allergy Verified 12/01/17 15:16
[~2017-12-04 08:49] MED LIST changes: -LIDOCAINE 1% 20 ML VIAL (10MG/ML) FOR IV START INTRADERMA PRN
[2017-12-04 10:00] VITALS: RESP 18; TEMP 97.2
[2017-12-04] MEDS ORDERED: PROPOFOL 10 MG/ML 20 ML VIAL IV ONE (10:13)
[2017-12-04] MEDS ORDERED: LIDOCAINE 1% INJ 10MG/ML (20 ML MDV) ONE (10:13)
--- NOTE | 2017-12-04 10:31 | P.PCN ---
Date of Procedure: 12/04/17 Description of Procedure: PREOPERATIVE DIAGNOSIS: Gastroesophageal reflux disease. Ineffective esophageal dysmotility Regurgitation POSTOPERATIVE DIAGNOSIS: Gastroesophageal reflux disease. Ineffective esophageal dysmotility Regurgitation Diaphragmatic hiatal hernia without obstruction, recurrent Erosive esophagitis OPERATION: Esophagogastroduodenoscopy with biopsies along antrum and distal esophagus SURGEON: Niki Kumar MD ANESTHESIA: MAC. INDICATIONS: The patient is a 47-year-old female who presents with a history of reflux disease. Benefits and risks of the procedure were described. Informed consent was obtained. DESCRIPTION: The patient was brought into the endoscopy suite and laid in the left lateral decubitus position. An Olympus gastroscope was passed along the posterior oropharynx down to the distal esophagus where the squamocolumnar junction was encountered at 35 cm from the incisors. The stomach was entered and retained food was found. Additional findings are listed below. Biopsies with cold forceps were obtained of the antrum and distal esophagus. The first through third portion of the duodenum was examined and unremarkable. Retroflexion of the scope confirmed Hill grade 2 lower esophageal valve. The squamocolumnar junction demostrated chronic LA grade B erosive esophagitis. The stomach was desufflated. The patient tolerated the procedure well. FINDINGS: Squamocolumnar junction 35 cm from the incisors. Diaphragmatic hiatus at 40 cm. Hiatal hernia 5 cm, recurrent Hill grade 2 lower esophageal valve. LA grade B erosive esophagitis. No active duodenitis. Retained food within stomach highly suspicious for mild gastroparesis RECOMMENDATIONS: Start Reglan Takedown of fundoplasty advised for ineffective esophageal dysmotility Plan - Discharge Summary New Discharge Prescriptions: No Action Hydrochlorothiazide [Hydrodiuril] 25 mg PO DAILY Ergocalciferol (Vitamin D2) [Vitamin D2] 50,000 unit PO WE ALPRAZolam [Xanax] 0.5 mg PO BID Albuterol Nebulized [Ventolin Nebulized] 2.5 mg INHALATION RT-Q6H Biotin 20,000 mcg PO DAILY Montelukast [Singulair] 10 mg PO HS Umeclidinium [place] [Incruse Ellipta] 62.5 mcg INHALATION QAM Mometasone/Formoterol [Dulera 100 Mcg/5 Mcg Inhaler] 2 puff INHALATION BID Omeprazole 40 mg PO DAILY #60 capsule.dr Discharge Medication List ALPRAZolam [Xanax] 0.5 mg PO BID 10/14/16 [History] Ergocalciferol (Vitamin D2) [Vitamin D2] 50,000 unit PO WE 10/14/16 [History] Hydrochlorothiazide [Hydrodiuril] 25 mg PO DAILY 10/14/16 [History] Albuterol Nebulized [Ventolin Nebulized] 2.5 mg INHALATION RT-Q6H 03/04/17 [ History] Biotin 20,000 mcg PO DAILY 03/04/17 [History] Mometasone/Formoterol [Dulera 100 Mcg/5 Mcg Inhaler] 2 puff INHALATION BID 06/12 [History] Montelukast [Singulair] 10 mg PO HS 06/12/17 [History] Omeprazole 40 mg PO DAILY #60 capsule. 06/12/17 [Rx] Umeclidinium [place] [Incruse Ellipta] 62.5 mcg INHALATION QAM 06/12/17 [History ]
[2017-12-04 10:59] VITALS: BP 126/85; PULSE 66
== END 2017-12-04 11:21 | disposition home or self-care (01) ==
LOC: ORWHC2ENDO 08:49
PROVIDERS: ATTEND Surgery Plastic and Reconstructive Surgery
DX: K21.0 Gastro-esophageal reflux disease with esophagitis (principal); K22.10 Ulcer of esophagus without bleeding; K22.4 Dyskinesia of esophagus; K29.50 Unspecified chronic gastritis without bleeding; K44.9 Diaphragmatic hernia without obstruction or gangrene; Z80.0 Family history of malignant neoplasm of digestive organs; I10 Essential (primary) hypertension; J44.9 Chronic obstructive pulmonary disease, unspecified; G47.33 Obstructive sleep apnea (adult) (pediatric); F41.9 Anxiety disorder, unspecified; G43.909 Migraine, unspecified, not intractable, without status migrainosus; H40.89 Other specified glaucoma; Z79.899 Other long term (current) drug therapy
CPT/HCPCS: 88305; 43239; J2001; J2704

== ENCOUNTER → 2018-08-31 | Outpatient (CLI) | payer OTHER ==
--- NOTE | 2018-08-31 22:54 | CT ---
EXAMINATION TYPE: CT sinus wo con DATE OF EXAM: 08/31/2018 COMPARISON: CT brain April 18, 2013. HISTORY: chronic sinusitis per order. Difficulty hearing for [address] DLP: 480.8 mGycm. Automated Exposure Control for Dose Reduction was Utilized. TECHNIQUE: CT scan of the sinuses is performed without contrast, axial images are obtained, coronal r eformatted images are also reviewed. FINDINGS: Minimal mucosal thickening along the periphery of the bilateral maxillary sinuses is presen t. There are hypoplastic or non-formed bilateral frontal sinuses. Remainder of the paranasal sinuses are clear. No suspicious opacification or air-fluid levels is seen. The ostiomeatal complex is patent bilaterally on the coronal images. Visualized portion of mastoid air cells show no abnormal opacification. The globes are intact bilate rally. Visualized portion of brain parenchyma is unremarkable. IMPRESSION: No acute sinusitis.
== END | disposition home or self-care (01) ==
LOC: RADCTMAIN 17:39
PROVIDERS: ATTEND Family Medicine
DX: J32.9 Chronic sinusitis, unspecified (principal)
CPT/HCPCS: 70486

== ENCOUNTER → 2018-12-24 | Outpatient (CLI) | payer OTHER ==
[2018-12-24 09:21] LABS: Blood Urea Nitrogen 14 mg/dL (7-17)
--- NOTE | 2018-12-24 11:02 | CT ---
EXAMINATION TYPE: CT abdomen pelvis w con DATE OF EXAM: 12/24/2018 COMPARISON: 11/01/2016 HISTORY: Diverticulitis of large intestine without mention of rupture CT DLP: 1509.6 mGycm Automated exposure control for dose reduction was used. CONTRAST: CT scan of the abdomen pelvis is performed with IV Contrast, patient injected with 100 ml mL of Isovu e 300. FINDINGS- LUNG BASES-year density in the right lower lobe likely related to scar or atelectasis.. LIVER/GB- No gross abnormality is appreciated. PANCREAS- No gross abnormality is seen. SPLEEN- No gross abnormality is seen. ADRENALS- No gross abnormality is seen. KIDNEYS/BLADDER- no hydronephrosis nephrolithiasis or renal mass. BOWEL-no bowel gas pattern nonspecific. Minimal changes of diverticulosis.. LYMPH NODES- No greater than 1cm abdominal or pelvic lymph nodes areappreciated. OSSEOUS STRUCTURES-hypertrophic and degenerative change of the spine. OTHER- retroaortic left renal vein. Postsurgical change in the epigastric region. Fat-containing per iumbilical hernia noted. IMPRESSION- 1. Very mild changes of diverticulosis with no CT evidence of diverticulitis.
== END ==
LOC: RADCTMAIN 08:46
PROVIDERS: ATTEND Surgery Plastic and Reconstructive Surgery
DX: K57.90 Diverticulosis of intestine, part unspecified, without perforation or abscess without bleeding (principal); L65.9 Nonscarring hair loss, unspecified
CPT/HCPCS: 82565; 84132; 84520; 74177; 36415; Q9967

== ENCOUNTER 2019-05-20 07:30 | Inpatient (IN) | payer OTHER ==
[2019-09-02] MEDS ORDERED: HEPARIN SODIUM,PORCINE 5,000 UNIT/ML 1 ML VIAL SQ ONE (05:00)
[2019-09-02] MEDS ORDERED: ONDANSETRON 4 MG/2 ML VIAL IVP ONE (05:46)
[2019-09-02] MEDS ORDERED: SCOPOLAMINE 1.5MG/72HR PATCH TRANSDERM ONE (05:46)
[2019-09-02] MEDS ORDERED: HYDROmorphone 0.5 MG/0.5 ML SYRINGE IVP PRN (05:46)
[2019-09-02] MEDS ORDERED: DEXAMETHASONE SOD PHOSPHATE 10 MG/ML 1 ML VIAL IV ONE ×2 (05:46→20:00)
[2019-09-02] MEDS ORDERED: MIDAZOLAM 2 MG/2 ML VIAL IV PRN (05:46)
[2019-09-02] MEDS ORDERED: CHLORHEXIDINE GLUCONATE 15 ML CUP MUCOUS MEM ONE (12:38)
[2019-09-02] MEDS ORDERED: ENOXAPARIN 40 MG/0.4 ML SYRINGE SQ STA (12:38)
--- NOTE | 2019-09-02 12:38 | P.GSHP ---
History of Present Illness H&P Date: 09/02/19 CHIEF COMPLAINT: Paraesophageal hiatal hernia with gastroesophageal reflux disease. HISTORY OF PRESENT ILLNESS: The patient is a 49-year-old female who presents with dysphagia, paraesophageal hiatal hernia and prior Alexis fundoplasty. She has completed an esophageal manometry including upper endoscopy workup. Now she presents for surgical intervention. PAST MEDICAL HISTORY: Please see list. PAST SURGICAL HISTORY: Please see list. MEDICATIONS: Please see list. ALLERGIES: Please see list. SOCIAL HISTORY: No illicit drug use FAMILY HISTORY: No reports of Crohn disease or ulcerative colitis. REVIEW OF ORGAN SYSTEMS: CONSTITUTIONAL: No reports of fevers or chills. GI: Denies any blood in stools or constipation. PHYSICAL EXAM: VITAL SIGNS: Stable GENERAL: Well-developed pleasant and in no acute distress. HEENT: No scleral icterus. Extraocular movements grossly intact. Moist buccal mucosa. NECK: Supple without lymphadenopathy. CHEST: Unlabored respirations. Equal bilateral excursions. CARDIOVASCULAR: Regular rate and rhythm. Distal 2+ pulses. ABDOMEN: Soft, nondistended. No peritoneal signs. MUSCULOSKELETAL: No clubbing, cyanosis, or edema. SKIN: Well-perfused. Good skin turgor. MANOMETRY: Shows no evidence of achalasia or scleroderma. Has ineffective esophageal dysmotility with EGJ obstruction ASSESSMENT: 1. Diaphragmatic paraesophageal hiatal hernia with severe gastroesophageal reflux disease. 2. Dysphagia 3. Ineffective esophageal dysmotility PLAN: 1. Recommend proceeding with a robotic take down of Alexis with paraesophageal hiatal hernia with possible mesh. 2. Benefits and risks of surgical intervention was discussed including possibility of open technique. 3. Inpatient hospitalization recommended of 2 nights 4. DVT prophylaxis. 5. Antibiotic prophylaxis. Past Medical History Past Medical History: Asthma, COPD, Eye Disorder, GERD/Reflux, Hypertension, Pneumonia, Sleep Apnea/CPAP/BIPAP Additional Past Medical History / Comment(s): migraines, NARROW LENS GLAUCOMA. DOES NOT USE CPAP. varicose veins, hiatal hernia, History of Any Multi-Drug Resistant Organisms: None Reported Past Surgical History: Breast Surgery, Hernia Repair, Hysterectomy Additional Past Surgical History / Comment(s): narendra breast reduction, NARENDRA eye laser surgery, COLONOSCOPY, ALEXIS FUNDOPLICATION, laparoscopy x 7 for endometriosis Past Anesthesia/Blood Transfusion Reactions: Previous Problems w/ Anesthesia, Motion Sickness, Postoperative Nausea & Vomiting (PONV) Additional Past Anesthesia/Blood Transfusion Reaction / Comment(s): aspiration while under anesthesia for colonoscopy -got aspiriation pneumonia Smoking Status: Never smoker - Past Family History Brother(s) Family Medical History: Cancer Additional Family Medical History / Comment(s): COLON CANCER Medications and Allergies Home Medications Medication Instructions Recorded Confirmed Type ALPRAZolam [Xanax] 0.5 mg PO BID PRN 10/14/16 08/31/19 History Ergocalciferol (Vitamin D2) 50,000 unit PO WEFR 10/14/16 08/31/19 History [Vitamin D2] Hydrochlorothiazide [Hydrodiuril] 25 mg PO DAILY 10/14/16 08/31/19 History Montelukast [Singulair] 10 mg PO HS 06/12/17 08/31/19 History Albuterol Inhaler [Ventolin Hfa 1 - 2 puff INHALATION DIRECTED 08/31/19 08/31/19 History Inhaler] PRN Omeprazole [PriLOSEC] 40 mg PO QAM 08/31/19 08/31/19 History Spironolactone [Aldactone] 50 mg PO QAM 08/31/19 08/31/19 History Spironolactone [Aldactone] 100 mg PO HS 08/31/19 08/31/19 History Vitamin E Tab 180 mg PO HS 08/31/19 08/31/19 History rOPINIRole HCL [Requip] 0.25 mg PO HS 08/31/19 08/31/19 History Allergies Allergy/AdvReac Type Severity Reaction Status Date / Time No Known Allergies Allergy Verified 08/31/19 08:23
[2019-09-02] MEDS ORDERED: GABAPENTIN 300 MG CAP PO STA (12:39)
[2019-09-02] MEDS ORDERED: ACETAMINOPHEN TAB 500 MG TAB PO STA (12:39)
[2019-09-02] MEDS ORDERED: LIDOCAINE 1% 20 ML VIAL (10MG/ML) FOR IV START INTRADERMA ONE (14:30)
[2019-09-02] MEDS: LACTATED RINGERS 1,000 ML IV SCH (14:30)
[2019-09-02] MEDS ORDERED: PANTOPRAZOLE 40 MG/10 ML VIAL IVP STA (15:01)
[2019-09-02] MEDS ORDERED: MIDAZOLAM 2 MG/2 ML VIAL IV ONE (15:44)
[2019-09-02] MEDS ORDERED: METOCLOPRAMIDE 5 MG/ML 2 ML VIAL IVP ONE (15:44)
[2019-09-02] MEDS ORDERED: HYDROmorphone (PF) 1 MG/ML ONE (16:26)
[2019-09-02] MEDS ORDERED: MIDAZOLAM 2 MG/2 ML VIAL ONE (16:26)
[2019-09-02] MEDS ORDERED: fentaNYL (PF) 50 MCG/ML 2 ML AMP ONE (16:26)
[2019-09-02] MEDS ORDERED: SUCCINYLCHOLINE CHLORIDE 100 MG/5 ML SYR IV ONE (16:26)
[2019-09-02] MEDS ORDERED: ROCURONIUM BROMIDE 10 MG/ML 10 ML VIAL IV ONE (16:26)
[2019-09-02] MEDS ORDERED: NEOSTIGMINE 1 MG/ML 10 ML VIAL ONE (16:26)
[2019-09-02] MEDS ORDERED: GLYCOPYRROLATE 0.2 MG/ML 2 ML VIAL ONE (16:26)
[2019-09-02] MEDS ORDERED: LIDOCAINE 1% INJ 10MG/ML (20 ML MDV) ONE (16:26)
[2019-09-02] MEDS ORDERED: PROPOFOL 10 MG/ML 20 ML VIAL IV ONE (16:26)
[2019-09-02] MEDS ORDERED: LIDOCAINE 1%-EPI 1:100,000 20 ML VIAL SQ ONE (16:28)
[2019-09-02] MEDS ORDERED: LACTATED RINGERS 1,000 ML IV ONE (17:13)
--- NOTE | 2019-09-02 18:49 | P.OP ---
Date of Procedure: 09/02/19 Description of Procedure: SURGEON: MANOJ MEIER MD PREOPERATIVE DIAGNOSES: 1. Paraesophageal hiatal hernia, midline, recurrent 2. Gastroesophageal reflux disease. 3. History of previous Bayron fundoplasty 4. Obstructive sleep apnea 5. Obesity due to excess calories, BMI 32.5 6. Dysphagia 7. Migraines 8. Ineffective esophageal motility 9. Generalized anxiety disorder 10. Esophagogastric junction obstruction 11. Chronic obstructive pulmonary disease POSTOPERATIVE DIAGNOSES: 1. Paraesophageal hiatal hernia, midline, recurrent, incarcerated 4 x 4 cm with obstruction 2. Gastroesophageal reflux disease. 3. History of previous Bayron fundoplasty 4. Obstructive sleep apnea 5. Obesity due to excess calories, BMI 32.5 6. Dysphagia 7. Migraines 8. Ineffective esophageal motility 9. Generalized anxiety disorder 10. Esophagogastric junction obstruction 11. Chronic obstructive pulmonary disease OPERATION: 1. Robotic-assisted da Derek Xi laparoscopic takedown of Bayron fundoplasty 2. Robotic-assisted da Derek Xi laparoscopic extensive lysis of adhesions over 45 minutes for perigastric adhesions 3. Robotic-assisted da Derek Xi laparoscopic reduction and repair of recurrent incarcerated paraesophageal hiatal hernia, 4 x 4 cm, with [place] Biopatch A 8 x 8 cm. 4. Intraoperative esophagogastroduodenoscopy 5. Placement of 56-Azerbaijani bougie for pre-existing esophageal dysmotility Implants: [place] Biopatch A 8 x 8 cm Anesthesia: GETA, local Estimated Blood Loss (ml): 5 Pathology: none sent Condition: stable Disposition: floor Operative Findings: 1. Recurrent incarcerated paraesophageal hiatal hernia, 4 x 4 cm 2. Severe peritoneal adhesions perigastric with incarcerated hiatal hernia with obstruction with previous Bayron fundoplasty requiring over 45 minute 3. Hill grade 1 lower esophageal sphincter confirmed upon upper endoscopy 4. Division and take down of fundoplasty using vessel sealer 5. Placement of 56 Fr bougie to address pre-existing esophageal dysmotility INDICATIONS: The patient is a 49-year-old female who presents with a sympt omatic diaphragmatic hiatal hernia. Preoperative workup including upper endoscopy demonstrated recurrent hiatal hernia and failedNissen fundoplasty. Given the severity of her symptoms, surgical intervention was offered. Benefits and risks including bleeding, infection, recurrence, dysphagia, injury to the esophagus, and stomach injury to the lung, need for further surgery was described at length. Informed consent was obtained. DESCRIPTION: The patient was brought into the operating room and placed in supine position. Preoperatively she had received heparin subcutaneously for DVT prophylaxis. After general induction, the abdomen was prepped and draped in standard sterile fashion. Jara catheter was placed. Ioban draping was placed along the abdomen. A timeout protocol was confirmed with the surgical team, for which the patient's name, procedure to be performed including DVT prophylaxis with bilateral SCDs, and preoperative antibiotics were also confirmed. Robotic da Derek Xi system was prepped and primed. At 15 cm from the xiphoid to just below the umbilicus, proposed port sites were marked with indelible marker along the left axillary line, left mid-clavicular line with each ports were marked 10 cm from each other. A 5 mm 0 degrees laparoscopic trocar entry was performed along the left upper quadrant. The abdomen was insufflated to 15 mmHg pressure she tolerated well. Diagnostic laparoscopy demonstrated no injury to bowel, viscera, or mesentery. No injury had occurred to the small bowel or viscera. Along the hiatus, recurrent hiatal hernia was identified. Next, one 8 mm robotic port was placed along the right upper abdomen. An 8-mm port was were placed along the left lateral abdominal wall. The camera 8-mm port was maintained along the epigastrium. A 12 mm port was placed along the left upper abdominal wall after exchanging the 5 mm port. Please note that the ports were placed at least 20 cm away from the target anatomy. Care was taken to check that each robotic arm were safely away from collision with the bed or the patient. At the epigastrium, a medium sized Padmini liver retractor was placed under direct visualization with the [employer] placed under the right shoulder of the patient. The additional third robotic arm was used. The patient was repositioned in reverse Trendelenburg position at 20-degrees after lowering the bed. The robot was docked above the left side of the patient. Using a grasper for arm 3, a grasper for arm 1, including vessel sealer for arm 4, the robotic system was docked and primed as described. Instruments were interchanged by the sales operations assistant. I had sat at the console. The phrenoesophageal ligament was mobilized circumferentially. Care was taken to avoid any injury to the stomach and esophagus. The hiatal hernia sac was divided to allow complete mobilization and freeing of the distal esophagus into the abdominal cavity. Care was taken to avoid any gastrotomy including takedown of the Bayron fundoplasty. Extensive lysis of adhesions went more than 45 minutes was used. The hernia sac was divided to release mobility of the esophagus. Dissection went to the mediastinum was performed. The measured defect was consistent with 4 cm axial length and 4 cm in width. Once the hiatus and crura was dissected, nonabsorbable2-0 VLOC suture was placed as a running suture to re-approximate the diaphragmatic hiatus posteriorly. To buttress the repair, a [place] Biopatch A was prepared along the back table and cut to reinforce the repair as an underlay. The mesh was placed along the crural repair posteriorly then cut in half and tagged using horizontal mattress sutures using 2-0 VLOC. I went to the head of the bed to perform intraoperative esophagogastroduodenoscopy. An Olympus gastroscope was passed through posterior oropharynx, where the GE junction was found just proximal to the diaphragmatic hiatus. Complete takedown of the Bayron was confirmed. The stomach was entered. Chronic gastritis was found. Retroflexion of the scope confirmed Hill grade 1 lower esophageal sphincter. A 56-Azerbaijani bougie was placed to address pre-existing esophageal dysmotility for 1 minute. The stomach had been desufflated. This concluded the endoscopic portion of the case. The robot was undocked from the patient. I re-scrubbed into the case. All instruments and pneumoperitoneum were evacuated from the abdominal cavity. Incisions were reapproximated using 4-0 Monocryl in an interrupted subcuticular fashion. All incisions were cleaned using dilute hydrogen peroxide. Fascial incisions were less than 8 mm in size. Liquid glue was applied to the skin. Local anesthetic was infiltrated in all wounds for postop analgesia. Multiple intra-abdominal films were obtained. At the end of the procedure, needle, sponge, and instrument count was verified correct by the ophthalmology surgical technician. The patient had tolerated the procedure well and was taken to the postanesthesia unit in stable condition. Intraoperative films were reviewed with the patient's family who were pleased with the level of care. Console time 59 minutes
[2019-09-02] MEDS ORDERED: NALOXONE 0.4 MG/ML 1 ML VIAL IV PRN (18:52)
[2019-09-02] MEDS ORDERED: diphenhydrAMINE 50 MG/ML 1 ML VIAL IVP PRN (18:52)
[2019-09-02] MEDS ORDERED: fentaNYL PCA 500 MCG/50 ML BAG IV PRN (18:58)
[2019-09-02] MEDS ORDERED: LORazepam 2 MG/ML INJ IV PRN (18:59)
[2019-09-02] MEDS: ALBUTEROL NEBULIZED 2.5 MG/3 ML INHALATION SCH (19:35)
[2019-09-02] MEDS ORDERED: TAMSULOSIN 0.4 MG CAP.ER.24H PO STA (19:57)
[2019-09-02] MEDS ORDERED: SODIUM CHLORIDE 0.9% 2,000 ML IV ONE (19:57)
[2019-09-02] MEDS: 0.9% NACL WITH KCL 20 MEQ/L 1,000 ML IV SCH (20:35)
[2019-09-02] MEDS: KETOROLAC 30 MG/ML 1 ML VIAL IVP SCH (20:37)
[2019-09-02] MEDS: MONTELUKAST 10 MG TAB PO SCH (20:38)
[2019-09-02] MEDS: SPIRONOLACTONE 25 MG TAB PO SCH (20:39)
[2019-09-02] MEDS: ONDANSETRON 4 MG/2 ML VIAL IVP SCH (21:45)
[2019-09-02] MEDS: HYOSCYAMINE ORAL DROPS 1.875 MG/15 ML BOTTLE PO SCH (23:45)
[2019-09-02] MEDS: ACETAMINOPHEN IV (For NPO) 1,000 MG in EMPTY BAG 1 BAG IVPB SCH (23:45)
[2019-09-02] MEDS: METOCLOPRAMIDE 5 MG/ML 2 ML VIAL IVP SCH (23:46)
[2019-09-02] MEDS: SIMETHICONE 40 MG/0.6 ML DROPS 2,000 MG/30 ML BOTTLE PO SCH (23:46)
[2019-09-03] MEDS: DEXAMETHASONE SOD PHOSPHATE 4 MG/ML 1 ML VIAL IV SCH ×5 (01:29→23:59)
[2019-09-03] MEDS: 0.9% NACL WITH KCL 20 MEQ/L 1,000 ML IV SCH ×3 (04:03→23:58)
[2019-09-03] MEDS: KETOROLAC 30 MG/ML 1 ML VIAL IVP SCH ×4 (06:31→23:58)
[2019-09-03] MEDS: METOCLOPRAMIDE 5 MG/ML 2 ML VIAL IVP SCH ×4 (06:31→23:59)
[2019-09-03] MEDS: ONDANSETRON 4 MG/2 ML VIAL IVP SCH ×4 (06:32→23:59)
[2019-09-03] MEDS: ACETAMINOPHEN IV (For NPO) 1,000 MG in EMPTY BAG 1 BAG IVPB SCH ×3 (06:33→18:16)
[2019-09-03] MEDS: SIMETHICONE 40 MG/0.6 ML DROPS 2,000 MG/30 ML BOTTLE PO SCH ×4 (06:33→23:59)
[2019-09-03] MEDS: HYOSCYAMINE ORAL DROPS 1.875 MG/15 ML BOTTLE PO SCH ×4 (06:33→23:59)
[2019-09-03] MEDS: LACTATED RINGERS 1,000 ML IV SCH (08:12)
[2019-09-03 08:30] LABS: Basophils % (A) 0 %; Eosinophils % (A) 0 %; HCT 36.1 % (34.0-46.0); HGB 12.5 gm/dL (11.4-16.0); Lymphocytes # (A) 0.5 k/uL (1.0-4.8); Lymphocytes % (A) 9 %; MCHC 34.6 g/dL (31.0-37.0); MCV 95.2 fL (80.0-100.0); Mean Platelet Volume 7.5; Monocytes # (A) 0.1 k/uL (0-1.0); Monocytes % (A) 2 %; Neutrophils # (A) 4.7 k/uL (1.3-7.7); Neutrophils % (A) 88 %; Platelet Count 216 k/uL (150-450); RBC 3.79 m/uL (3.80-5.40); RDW 12.2 % (11.5-15.5); WBC 5.4 k/uL (3.8-10.6)
[2019-09-03 08:41] LABS: African American GFR (CKD) >90 (>60 ml/min/1.73 sqM); Anion Gap 10 mmol/L; Blood Urea Nitrogen 14 mg/dL (7-17); Calcium 9.5 mg/dL (8.4-10.2); Carbon Dioxide 22 mmol/L (22-30); Chloride 107 mmol/L (98-107); Magnesium 1.8 mg/dL (1.6-2.3); Non-African American GFR(CKD) 88 (>60 ml/min/1.73 sqM); Phosphorus 4.1 mg/dL (2.5-4.5); Potassium 4.6 mmol/L (3.5-5.1); Sodium 139 mmol/L (137-145)
--- NOTE | 2019-09-03 09:13 | FL ---
EXAMINATION TYPE: FL esophagus cervic/pharynx DATE OF EXAM ORDERED: 09/03/2019 8:56 AM HISTORY: Status post Alexis fundoplication. COMPARISON: None. FINDINGS: The patient drank contrast with ease. There was prompt egress from the esophagus into the stomach. There is no evidence of extravasation. There is a small amount of free air. The ligament of Treitz is in the normal location. IMPRESSION: STATUS POST ALEXIS FUNDOPLICATION
[2019-09-03] MEDS: PANTOPRAZOLE 40 MG/10 ML VIAL IV SCH (09:23)
[2019-09-03] MEDS: SPIRONOLACTONE 25 MG TAB PO SCH ×2 (09:29→20:59)
[2019-09-03] MEDS: HYDROCHLOROTHIAZIDE 25 MG TAB PO SCH (09:29)
[2019-09-03] MEDS: TAMSULOSIN 0.4 MG CAP.ER.24H PO SCH (09:31)
[2019-09-03] MEDS: ENOXAPARIN 40 MG/0.4 ML SYRINGE SQ SCH (09:32)
[2019-09-03] MEDS: ALBUTEROL NEBULIZED 2.5 MG/3 ML INHALATION SCH ×4 (09:52→19:25)
--- NOTE | 2019-09-03 11:53 | P.DS ---
Providers Date of admission: 09/02/19 13:05 Expected date of discharge: 09/03/19 Attending physician: Niki Kumar Primary care physician: Tara Valencia [facility] Course: this a 49-year-old female who underwent robotic repair of paraesophageal hernia yesterday. Patient still quite well her incision sites are clean and intact. Patient has had limited oral intake. She will be discharged home tomorrow. We will continue supportive care. Plan - Discharge Summary Discharge Rx Participant: Yes New Discharge Prescriptions: New Bisacodyl [Dulcolax] 5 mg PO DAILY PRN #10 tablet. PRN Reason: Constipation Simethicone 40 mg/0.6 ml Drops [Mylicon Drops] 40 mg PO PCHS PRN #30 ml PRN Reason: Gas Omeprazole 40 mg PO DAILY #30 capsule. Ondansetron Odt [Zofran Odt] 4 mg PO Q8HR PRN #9 tab PRN Reason: Nausea Acetaminophen Oral Susp [Tylenol Oral Susp] 500 mg PO Q4-6H PRN #400 ml PRN Reason: Pain No Action Hydrochlorothiazide [Hydrodiuril] 25 mg PO DAILY Ergocalciferol (Vitamin D2) [Vitamin D2] 50,000 unit PO WEFR ALPRAZolam [Xanax] 0.5 mg PO BID PRN PRN Reason: Anxiety Montelukast [Singulair] 10 mg PO HS rOPINIRole HCL [Requip] 0.25 mg PO HS Spironolactone [Aldactone] 100 mg PO HS Spironolactone [Aldactone] 50 mg PO QAM Omeprazole [PriLOSEC] 40 mg PO QAM Vitamin E Tab 180 mg PO HS Albuterol Inhaler [Ventolin Hfa Inhaler] 1 - 2 puff INHALATION DIRECTED PRN PRN Reason: Shortness Of Breath Discharge Medication List ALPRAZolam [Xanax] 0.5 mg PO BID PRN 10/14/16 [History] Ergocalciferol (Vitamin D2) [Vitamin D2] 50,000 unit PO WEFR 10/14/16 [History] Hydrochlorothiazide [Hydrodiuril] 25 mg PO DAILY 10/14/16 [History] Montelukast [Singulair] 10 mg PO HS 06/12/17 [History] Albuterol Inhaler [Ventolin Hfa Inhaler] 1 - 2 puff INHALATION DIRECTED PRN 08/31/19 [History] Omeprazole [PriLOSEC] 40 mg PO QAM 08/31/19 [History] Spironolactone [Aldactone] 50 mg PO QAM 08/31/19 [History] Spironolactone [Aldactone] 100 mg PO HS 08/31/19 [History] Vitamin E Tab 180 mg PO HS 08/31/19 [History] rOPINIRole HCL [Requip] 0.25 mg PO HS 08/31/19 [History] Acetaminophen Oral Susp [Tylenol Oral Susp] 500 mg PO Q4-6H PRN #400 ml 09/02/19 [Rx] Bisacodyl [Dulcolax] 5 mg PO DAILY PRN #10 tablet. 09/02/19 [Rx] Omeprazole 40 mg PO DAILY #30 capsule. 09/02/19 [Rx] Ondansetron Odt [Zofran Odt] 4 mg PO Q8HR PRN #9 tab 09/02/19 [Rx] Simethicone 40 mg/0.6 ml Drops [Mylicon Drops] 40 mg PO PCHS PRN #30 ml 09/02/19 [Rx] Follow up Appointment(s)/Referral(s): Niki Kumar MD [STAFF PHYSICIAN] - 09/15/19 Patient Instructions/Handouts: Laparoscopic Hiatal Hernia Repair (DC) Activity/Diet/Wound Care/Special Instructions: Liquid diet only. No carbonated beverages. No straws. No lifting over 4 pounds in 4 weeks, October 03. May shower. No bath tub soaks. May take [id number] Tylenol or Aleve for pain. Do not remove scopolamine patch for 3 days, if present Discharge Disposition: HOME SELF-CARE
[2019-09-03] MEDS ORDERED: LACTATED RINGERS 1,000 ML IV SCH (13:30)
[2019-09-03] MEDS ORDERED: HYDROmorphone 1 MG/ML 1 ML SYRINGE IVP PRN (14:56)
[2019-09-03] MEDS: HYDROmorphone 0.5 MG/0.5 ML SYRINGE IVP PRN ×4 (15:03→23:59)
--- NOTE | 2019-09-03 16:08 | XR ---
EXAMINATION TYPE: XR chest 2V DATE OF EXAM: 09/03/2019 COMPARISON: Prior chest x-ray 09/22/2016, barium swallow dated 09/03/2019 HISTORY: Hypoxemia, status post hiatal hernia repair TECHNIQUE: Frontal and lateral views of the chest are obtained. FINDINGS: Small crescent of lucency beneath the right hemidiaphragm is compatible with recent surger y, correlate. Subsegmental basilar atelectatic changes are present. Lung volumes are low. Heart size may be accentuated by rotation and expiratory exam. No evident pneumothorax or pleural effusion. Gas distended loops of bowel noted incidentally in the abdomen. IMPRESSION: Pneumoperitoneum is likely postoperative, correlate for appropriate history. Expiratory rotated exam, basilar atelectatic changes. Nonspecific gas distended loops of bowel within the abdome n.
--- NOTE | 2019-09-03 17:24 | P.CNPUL ---
History of Present Illness Consult date: 09/03/19 Reason for consult: hypoxemia History of present illness: 49-year-old female patient underwent a paraesophageal hernia repair. The surgery was done yesterday evening and the patient was having dysphagia related to diaphragmatic paraesophageal hiatal hernia with severe reflux. She was doing well until this afternoon prior to discharge which she became hypoxic. She was placed on 2 L about 2 by nasal cannula and her pulse ox 92%. Chest x-ray was done and showed no peritoneum and air under diaphragm which is expected finding following the surgery. There was also some atelectatic changes and left lung base. No fever. No chills. No night sweats. No cough or sputum production. She has history of mild intermittent bronchial asthma maintained on short-acting albuterol on a when necessary basis. She had developed some shoulder pain which responded to Dilaudid. No angina. No sweating. No diaphoresis. No aspiration. No fever. No chills. Swallow testing following the surgery was within normal limits. The patient is known to have mild intermittent bronchial asthma, dysphagia and migraines and history of chronic anxiety disorder. Review of Systems Constitutional: Reports as per HPI Eyes: denies as per HPI, denies blurred vision, denies bulging eye, denies decreased vision, denies diplopia, denies discharge, denies dry eye, denies irritation, denies itching, denies pain, denies photophobia, denies loss of peripheral vision, denies loss of vision, denies tunnel vision/blind spots Ears: deny: decreased hearing, ear discharge, earache, tinnitus Ears, nose, mouth and throat: Reports as per HPI Breasts: absent: as per HPI, change in shape, gynecomastia, masses, nipple discharge, pain, skin changes, swelling Cardiovascular: Reports as per HPI Respiratory: Reports as per HPI, Reports dyspnea Gastrointestinal: Reports as per HPI (Dysphagia) Genitourinary: Reports as per HPI Menstruation: Reports as per HPI Musculoskeletal: Reports as per HPI Musculoskeletal: absent: ankle pain, ankle stiffness, ankle swelling Integumentary: Reports as per HPI Neurological: Reports as per HPI Psychiatric: Reports as per HPI Endocrine: Reports as per HPI Hematologic/Lymphatic: Reports as per HPI Allergic/Immunologic: Reports as per HPI Past Medical History Past Medical History: Asthma, Eye Disorder, GERD/Reflux, Hypertension, Sleep Apnea/CPAP/BIPAP Additional Past Medical History / Comment(s): migraines, NARROW LENS GLAUCOMA. DOES NOT USE CPAP. varicose veins, hiatal hernia, History of Any Multi-Drug Resistant Organisms: None Reported Past Surgical History: Breast Surgery, Hernia Repair, Hysterectomy Additional Past Surgical History / Comment(s): narendra breast reduction, NARENDRA eye laser surgery, COLONOSCOPY, ALEXIS FUNDOPLICATION, laparoscopy x 7 for endometriosis Past Anesthesia/Blood Transfusion Reactions: Previous Problems w/ Anesthesia, Motion Sickness, Postoperative Nausea & Vomiting (PONV) Additional Past Anesthesia/Blood Transfusion Reaction / Comment(s): aspiration while under anesthesia for colonoscopy -got aspiriation pneumonia Smoking Status: Never smoker - Past Family History Brother(s) Family Medical History: Cancer Additional Family Medical History / Comment(s): COLON CANCER Medications and Allergies Home Medications Medication Instructions Recorded Confirmed Type ALPRAZolam [Xanax] 0.5 mg PO BID PRN 10/14/16 09/02/19 History Ergocalciferol (Vitamin D2) 50,000 unit PO WEFR 10/14/16 08/31/19 History [Vitamin D2] Hydrochlorothiazide [Hydrodiuril] 25 mg PO DAILY 10/14/16 08/31/19 History Montelukast [Singulair] 10 mg PO HS 06/12/17 08/31/19 History Albuterol Inhaler [Ventolin Hfa 1 - 2 puff INHALATION DIRECTED 08/31/19 09/02/19 History Inhaler] PRN Omeprazole [PriLOSEC] 40 mg PO QAM 08/31/19 08/31/19 History Spironolactone [Aldactone] 50 mg PO QAM 08/31/19 08/31/19 History Spironolactone [Aldactone] 100 mg PO HS 08/31/19 08/31/19 History Vitamin E Tab 180 mg PO HS 08/31/19 08/31/19 History rOPINIRole HCL [Requip] 0.25 mg PO HS 08/31/19 08/31/19 History Acetaminophen Oral Susp [Tylenol 500 mg PO Q4-6H PRN #400 ml 09/02/19 Rx Oral Susp] Bisacodyl [Dulcolax] 5 mg PO DAILY PRN #10 tablet. 09/02/19 Rx Omeprazole 40 mg PO DAILY #30 capsule. 09/02/19 Rx Ondansetron Odt [Zofran Odt] 4 mg PO Q8HR PRN #9 tab 09/02/19 Rx Simethicone 40 mg/0.6 ml Drops 40 mg PO PCHS PRN #30 ml 09/02/19 Rx [Mylicon Drops] Allergies Allergy/AdvReac Type Severity Reaction Status Date / Time No Known Allergies Allergy Verified 09/02/19 20:18 Physical Exam Vitals: Vital Signs Temp Pulse Pulse Pulse Resp BP BP 09/03/19 16:21 117 H 18 09/03/19 16:00 118 H 09/03/19 14:50 98.1 F 120 H 20 105/53 09/03/19 13:38 120 H 20 09/03/19 12:35 101 H 09/03/19 12:25 100 09/03/19 12:04 98.2 F 99 16 111/69 09/03/19 10:18 24 09/03/19 10:05 96 09/03/19 09:52 96 09/03/19 09:37 09/03/19 09:15 76 16 117/72 09/03/19 08:00 80 09/03/19 07:41 98.2 F 80 16 98/61 09/03/19 04:06 98.2 F 78 16 93/59 09/03/19 02:24 09/03/19 02:10 09/02/19 23:50 97.7 F 73 16 105/70 09/02/19 22:51 65 97/64 09/02/19 22:21 69 96/61 09/02/19 21:51 97.9 F 70 18 104/68 09/02/19 21:21 78 114/59 09/02/19 20:51 97.7 F 70 16 112/74 09/02/19 20:36 74 16 109/72 09/02/19 20:21 86 18 123/78 09/02/19 20:11 09/02/19 20:06 97.5 F L 79 18 120/76 09/02/19 19:28 79 16 110/62 09/02/19 19:13 87 16 108/54 09/02/19 18:58 90 16 114/52 09/02/19 18:43 92 14 131/60 Pulse Ox 09/03/19 16:21 90 L 09/03/19 16:00 09/03/19 14:50 88 L 09/03/19 13:38 92 L 09/03/19 12:35 09/03/19 12:25 09/03/19 12:04 91 L 09/03/19 10:18 90 L 09/03/19 10:05 09/03/19 09:52 94 L 09/03/19 09:37 93 L 09/03/19 09:15 89 L 09/03/19 08:00 09/03/19 07:41 94 L 09/03/19 04:06 91 L 09/03/19 02:24 88 L 09/03/19 02:10 94 L 09/02/19 23:50 97 09/02/19 22:51 95 09/02/19 22:21 94 L 09/02/19 21:51 96 09/02/19 21:21 92 L 09/02/19 20:51 94 L 09/02/19 20:36 93 L 09/02/19 20:21 94 L 09/02/19 20:11 93 L 09/02/19 20:06 90 L 09/02/19 19:28 95 09/02/19 19:13 95 09/02/19 18:58 97 09/02/19 18:43 95 Intake and Output 09/03/19 09/03/19 09/03/19 06:59 14:59 22:59 Intake Total 600 Output Total 1300 800 700 Balance -1300 -200 -700 Intake: Oral 600 Output: Urine 1300 800 700 Uretheral (Jara) 400 Other: Weight 91.2 kg The patient appeared well nourished and normally developed. Vital signs as documented. She is currently on 2 L of oxygen by nasal cannula Head exam is unremarkable. No scleral icterus or corneal arcus noted. Neck is without jugular venous distension, thyromegaly, or carotid bruits. Carotid upstrokes are brisk bilaterally. Lungs the patient has diminished breath on the left lung base. No significant crackles or wheezes or rhonchi. She is using incentive spirometer and she is pulling approximately 1200 Cardiac exam reveals the PMI to be normally sized and situated. Rhythm is regular. First and second heart sounds normal. No murmurs, rubs or gallops. Abdominal exam reveals normal bowel sounds, no masses, no organomegaly and no aortic enlargement. Extremities are nonedematous and both femoral and pedal pulses are normal. Scars over the anterior abdominal area are all dry clean and intact.Examination of the skin revealed no evidence of significant rashes, suspicious appearing nevi or other concerning lesions. Neurologically awake and alert and there is no focal neurological deficits. Results - Laboratory Findings CBC and BMP: 09/03/19 07:56 09/03/19 07:56 Abnormal lab findings: Abnormal Labs 09/03/19 07:56 RBC 3.79 L Lymphocytes # 0.5 L - Diagnostic Findings Chest x-ray: image reviewed Assessment and Plan Plan: 1 acute hypoxemia likely secondary to postsurgical atelectatic changes in lung bases, doubt aspiration 2 pneumoperitoneum, expected finding. 33 robotic-assisted laparoscopic takedown of Alexis fundoplication along with lisinopril adhesions and repair of a recurrent incarcerated paraesophageal hiatal hernia. Patient is postop day #1 4 obesity 5 history of obstructive sleep apnea. 6 history of migraines 7 history of esophageal dysmotility. 8 chronic generalized anxiety disorder Plan Continue using incentive spirometer. Continue fluids. Lovenox for DVT prophylaxis. Maintain oxygenation above 90% titrate FiO2. Repeat chest x-ray in the morning. We'll follow. No need for antibiotics. We'll continue to follow I will consider a computed tomography scan of the chest if there is worsening and oxygenation or lack of improvement over the next 24-48 hours. Watch for fever pattern. Repeat blood work in the morning.
[2019-09-03] MEDS: MONTELUKAST 10 MG TAB PO SCH (20:59)
[2019-09-04] MEDS: SIMETHICONE 40 MG/0.6 ML DROPS 2,000 MG/30 ML BOTTLE PO SCH ×3 (05:32→17:58)
[2019-09-04] MEDS: HYOSCYAMINE ORAL DROPS 1.875 MG/15 ML BOTTLE PO SCH ×3 (05:32→17:58)
[2019-09-04] MEDS: METOCLOPRAMIDE 5 MG/ML 2 ML VIAL IVP SCH ×2 (05:32→11:42)
[2019-09-04] MEDS: ONDANSETRON 4 MG/2 ML VIAL IVP SCH ×2 (05:33→11:52)
[2019-09-04] MEDS: DEXAMETHASONE SOD PHOSPHATE 4 MG/ML 1 ML VIAL IV SCH ×2 (05:33→11:55)
[2019-09-04] MEDS: KETOROLAC 30 MG/ML 1 ML VIAL IVP SCH ×2 (05:33→11:46)
[2019-09-04] MEDS: LACTATED RINGERS 1,000 ML IV SCH (06:07)
[2019-09-04] MEDS: HYDROmorphone 0.5 MG/0.5 ML SYRINGE IVP PRN ×4 (07:07→20:34)
[2019-09-04] MEDS: ALBUTEROL NEBULIZED 2.5 MG/3 ML INHALATION SCH ×4 (07:35→21:05)
--- NOTE | 2019-09-04 07:47 | XR ---
EXAMINATION TYPE: XR chest 2V DATE OF EXAM: 09/04/2019 HISTORY: hypoxia. REFERENCE: The study dated 09/03/2019. FINDINGS: On today's examination, there is less free air under the right hemidiaphragm. There is plat elike atelectasis at the left lung base. There are small, bilateral effusions. The heart is not enlar ged. IMPRESSION: 1. RESOLVING PNEUMOPERITONEUM. 2. BIBASILAR AIRSPACE DISEASE, LIKELY REPRESENTING ATELECTASIS. 3. SMALL, BILATERAL EFFUSIONS.
[2019-09-04] MEDS: PANTOPRAZOLE 40 MG/10 ML VIAL IV SCH (09:08)
[2019-09-04] MEDS: SPIRONOLACTONE 25 MG TAB PO SCH ×2 (09:11→20:35)
[2019-09-04] MEDS: HYDROCHLOROTHIAZIDE 25 MG TAB PO SCH (09:11)
[2019-09-04] MEDS: TAMSULOSIN 0.4 MG CAP.ER.24H PO SCH (09:11)
[2019-09-04] MEDS: ENOXAPARIN 40 MG/0.4 ML SYRINGE SQ SCH (09:20)
[2019-09-04] MEDS: 0.9% NACL WITH KCL 20 MEQ/L 1,000 ML IV SCH (09:51)
--- NOTE | 2019-09-04 12:30 | P.PN ---
Subjective Progress Note Date: 09/04/19 49-year-old female patient underwent a paraesophageal hernia repair. The surgery was done yesterday evening and the patient was having dysphagia related to diaphragmatic paraesophageal hiatal hernia with severe reflux. She was doing well until this afternoon prior to discharge which she became hypoxic. She was placed on 2 L about 2 by nasal cannula and her pulse ox 92%. Chest x-ray was done and showed no peritoneum and air under diaphragm which is expected finding following the surgery. There was also some atelectatic changes and left lung base. No fever. No chills. No night sweats. No cough or sputum production. She has history of mild intermittent bronchial asthma maintained on short-acting albuterol on a when necessary basis. She had developed some shoulder pain which responded to Dilaudid. No angina. No sweating. No diaphoresis. No aspiration. No fever. No chills. Swallow testing following the surgery was within normal limits. The patient is known to have mild intermittent bronchial asthma, dysphagia and migraines and history of chronic anxiety disorder. on today's evaluation of 09 04 2019 the patient is feeling better. She is still experiencing some left shoulder pain for which she is going to be getting alcohol. She is on oxygen between 1-1/2 L and the dose being titrated to maintain a saturation above 90%. Her follow-up chest x-ray was done today and showed some atelectatic changes and left lung base. The pneumoperitoneum that was seen in the right lung under the diaphragm as recovered. She is using incentive spirometer on a regular basis. She is passing flatus. Objective - Vital Signs Vital signs: Vital Signs Temp 98.0 F 09/04/19 11:44 Pulse 73 09/04/19 11:44 Resp 16 09/04/19 11:44 BP 115/75 09/04/19 11:44 Pulse Ox 91 L 09/04/19 11:53 Intake & Output 09/03/19 09/04/19 09/04/19 18:59 06:59 18:59 Intake Total 1080 380 Output Total 1500 400 500 Balance -420 -400 -120 Weight 91.2 kg Intake: Oral 1080 380 Output: Urine 1500 400 500 Other: Voiding Method Toilet # Voids 1 - Exam The patient appeared well nourished and normally developed. Vital signs as documented. She is currently on 2 L of oxygen by nasal cannula Head exam is unremarkable. No scleral icterus or corneal arcus noted. Neck is without jugular venous distension, thyromegaly, or carotid bruits. Carotid upstrokes are brisk bilaterally. Lungs the patient has diminished breath on the left lung base. No significant crackles or wheezes or rhonchi. She is using incentive spirometer and she is pulling approximately 1200 Cardiac exam reveals the PMI to be normally sized and situated. Rhythm is regular. First and second heart sounds normal. No murmurs, rubs or gallops. Abdominal exam reveals normal bowel sounds, no masses, no organomegaly and no aortic enlargement. Extremities are nonedemato us and both femoral and pedal pulses are normal. Scars over the anterior abdominal area are all dry clean and intact.Examination of the skin revealed no evidence of significant rashes, suspicious appearing nevi or other concerning lesions. Neurologically awake and alert and there is no focal neurological deficits. - Labs CBC & Chem 7: 09/03/19 07:56 09/03/19 07:56 Assessment and Plan Plan: 1 acute hypoxemia likely secondary to postsurgical atelectatic changes in lung bases, doubt aspiration 2 pneumoperitoneum, expected finding. 3 robotic-assisted laparoscopic takedown of Bayron fundoplication along with lisinopril adhesions and repair of a recurrent incarcerated paraesophageal hiatal hernia. Patient is postop day #2 4 obesity 5 history of obstructive sleep apnea. 6 history of migraines 7 history of esophageal dysmotility. 8 chronic generalized anxiety disorder Plan Continue using incentive spirometer. Continue fluids. Lovenox for DVT prophylaxis. Maintain oxygenation above 90% titrate FiO2. love chest x-ray shows improvement in aeration along with some atelectatic changes and left lung base. Continue mobility. Continue movement. We'll continue to follow. Possible discharge in a.m. if things well for her.
[2019-09-04] MEDS ORDERED: ONDANSETRON 4 MG/2 ML VIAL IVP PRN (13:21)
[2019-09-04] MEDS ORDERED: METOCLOPRAMIDE 5 MG/ML 2 ML VIAL IVP PRN (13:21)
[2019-09-04] MEDS ORDERED: KETOROLAC 30 MG/ML 1 ML VIAL IVP PRN (13:22)
[2019-09-04] MEDS: HYDROcodone/APAP 5-325MG 1 EACH TAB PO PRN (14:46)
--- NOTE | 2019-09-04 15:03 | P.PN ---
Progress Note - Text Progress Note Date: 09/04/19 the patient is still complaining of some mild shortness of breath. She was evaluated by the pulmonary service yesterday. She has some atelectasis. She's had poor inspiratory effort. She is only able to withdraw approximately 1200 mL on her spirometer. She denies any significant abdominal pain. On exam her vital signs are stable. Her abdomen soft. Her incision sites are clean and intact. Status post repair of her esophageal hernia. Patient will be discharged home tomorrow once her pulmonary status improves.
[2019-09-04] MEDS: MONTELUKAST 10 MG TAB PO SCH (20:35)
[2019-09-05] MEDS: SIMETHICONE 40 MG/0.6 ML DROPS 2,000 MG/30 ML BOTTLE PO SCH ×4 (00:32→17:16)
[2019-09-05] MEDS: HYOSCYAMINE ORAL DROPS 1.875 MG/15 ML BOTTLE PO SCH ×4 (00:32→17:15)
[2019-09-05] MEDS: ALBUTEROL NEBULIZED 2.5 MG/3 ML INHALATION SCH ×2 (03:30→08:58)
[2019-09-05] MEDS: HYDROmorphone 0.5 MG/0.5 ML SYRINGE IVP PRN ×2 (03:54→12:43)
--- NOTE | 2019-09-05 08:21 | CT ---
EXAMINATION TYPE: CT angio chest DATE OF EXAM: 09/05/2019 COMPARISON: 11/01/2016 and 06/13/2016 HISTORY: 49-year-old female Shortness of breath and Left shoulder pain. TECHNIQUE: Contiguous axial scanning of the chest performed with IV Contrast, patient injected with 1 00 mL of Isovue 370. Coronal/sagittal MIP reconstructions performed. CT DLP: 562 mGycm Automated exposure control for dose reduction was used. FINDINGS: The heart is borderline enlarged without pericardial effusion. No flattening of the interventricular septum reflux of contrast into the hepatic veins. Aorta normal caliber where conventional branching anatomy. Satisfactory opacification of the pulmonary consistent. There is volume loss at the lung bases with a ssociated patchy opacities and airspace disease. No definite pulmonary embolus. No pleural effusion. No thoracic lymphadenopathy by CT size criteria. Visualized upper abdomen shows no gross abnormality. Bones: Endplate spondylosis mid to lower thoracic spine. IMPRESSION: 1. VOLUME LOSS WITH AREAS OF PROMINENT ATELECTASIS VERSUS AIRSPACE DISEASE AT THE LUNG BASES. CORRELA TE FOR ANY SIGNS/SYMPTOMS OF INFECTIOUS OR ASPIRATION PNEUMONITIS. 2. NO DEFINITE PULMONARY EMBOLUS. 3. BORDERLINE HEART SIZE.
[2019-09-05] MEDS: TAMSULOSIN 0.4 MG CAP.ER.24H PO SCH (08:30)
[2019-09-05] MEDS: PANTOPRAZOLE 40 MG/10 ML VIAL IV SCH (08:30)
[2019-09-05] MEDS: ENOXAPARIN 40 MG/0.4 ML SYRINGE SQ SCH (08:30)
[2019-09-05] MEDS: SPIRONOLACTONE 25 MG TAB PO SCH ×2 (08:34→20:04)
[2019-09-05] MEDS: HYDROCHLOROTHIAZIDE 25 MG TAB PO SCH (08:34)
[2019-09-05] MEDS: HYDROcodone/APAP 5-325MG 1 EACH TAB PO PRN ×2 (09:51→22:10)
[2019-09-05 10:14] LABS: HGB 11.9 gm/dL (11.4-16.0); MCH 33.5 pg (25.0-35.0); MCHC 34.2 g/dL (31.0-37.0); Platelet Count 187 k/uL (150-450); RBC 3.57 m/uL (3.80-5.40); RDW 12.5 % (11.5-15.5); WBC 7.2 k/uL (3.8-10.6)
[2019-09-05 10:21] LABS: African American GFR (CKD) >90 (>60 ml/min/1.73 sqM); Anion Gap 8 mmol/L; Blood Urea Nitrogen 13 mg/dL (7-17); Calcium 9.8 mg/dL (8.4-10.2); Carbon Dioxide 28 mmol/L (22-30); Chloride 107 mmol/L (98-107); Glucose 101 mg/dL (74-99); Non-African American GFR(CKD) 85 (>60 ml/min/1.73 sqM); Potassium 3.7 mmol/L (3.5-5.1); Sodium 143 mmol/L (137-145)
[2019-09-05 10:28] LABS: Creatine Kinase 63 U/L (30-135)
[2019-09-05 10:41] LABS: Troponin I <0.012 ng/mL (0.000-0.034)
[2019-09-05] MEDS ORDERED: ALBUTEROL NEBULIZED 2.5 MG/3 ML INHALATION PRN (10:46)
--- NOTE | 2019-09-05 10:51 | P.PN ---
Subjective Progress Note Date: 09/05/19 Principal diagnosis: Acute hypoxemia secondary to postsurgical atelectatic changes 49-year-old female patient underwent a paraesophageal hernia repair. The surgery was done yesterday evening and the patient was having dysphagia related to diaphragmatic paraesophageal hiatal hernia with severe reflux. She was doing well until this afternoon prior to discharge which she became hypoxic. She was placed on 2 L about 2 by nasal cannula and her pulse ox 92%. Chest x-ray was done and showed no peritoneum and air under diaphragm which is expected finding following the surgery. There was also some atelectatic changes and left lung base. No fever. No chills. No night sweats. No cough or sputum production. She has history of mild intermittent bronchial asthma maintained on short-acting albuterol on a when necessary basis. She had developed some shoulder pain which responded to Dilaudid. No angina. No sweating. No diaphoresis. No aspiration. No fever. No chills. Swallow testing following the surgery was within normal limits. The patient is known to have mild intermittent bronchial asthma, dysphagia and migraines and history of chronic anxiety disorder. on today's evaluation of 09 04 2019 the patient is feeling better. She is still experiencing some left shoulder pain for which she is going to be getting alcohol. She is on oxygen between 1-1/2 L and the dose being titrated to maintain a saturation above 90%. Her follow-up chest x-ray was done today and showed some atelectatic changes and left lung base. The pneumoperitoneum that was seen in the right lung under the diaphragm as recovered. She is using incentive spirometer on a regular basis. She is passing flatus. On 09/05/2019 patient seen in follow-up on the pediatric unit, this morning she is on 5 L of oxygen her pulse ox is 90%, she has been having chest discomfort which she describes as deep sharp pinch in her mid chest, radiating to her left shoulder, and her left arm, he states it lasts several minutes, comes and goes and does not have any radiating or precipitating factors. I was told by nursing staff the patient has been refusing her breathing treatments stating that they make her tachycardic and more short of breath. Patient has had no fever or chills, hemodynamically stable, lung sounds are essentially clear, no wheezing, no rhonchi, occasional cough, no phlegm production, CTA chest was obtained showing no definite evidence of pulmonary embolus, showed volume loss with areas of prominent atelectasis versus airspace disease at the lung bases. Today's labs have been reviewed showing no evidence of leukocytosis, white blood cell count of 7.2, hemoglobin was 11.9, electrolytes and renal profile were within normal limits, cardiac panel was negative, troponin was less than 0.012, stat EKG was requested. And patient will be placed on continuous telemetry mo nitoring and transferred to [facility]. Objective - Vital Signs Vital signs: Vital Signs Temp 98.6 F 09/05/19 00:00 Pulse 73 09/05/19 09:12 Resp 22 09/05/19 08:00 BP 126/80 09/05/19 08:00 Pulse Ox 93 L 09/05/19 08:00 Intake & Output 09/04/19 09/05/19 09/05/19 18:59 06:59 18:59 Intake Total 1280 1350 Output Total 850 2250 Balance 430 -900 Intake: Oral 1280 1350 Output: Urine 850 2250 Other: Voiding Method Toilet Toilet - Exam GENERAL EXAM: Alert, very pleasant, 49-year-old white female, on 5 L of oxygen with a pulse ox of 90% comfortable in no apparent distress. HEAD: Normocephalic/atraumatic. EYES: Normal reaction of pupils, equal size. Conjunctiva pink, sclera white. NOSE: Clear with pink turbinates. THROAT: No erythema or exudates. NECK: No masses, no JVD, no thyroid enlargement, no adenopathy. CHEST: No chest wall deformity. Symmetrical expansion. LUNGS: Equal air entry with no crackles, wheeze, rhonchi or dullness. CVS: Regular rate and rhythm, normal S1 and S2, no gallops, no murmurs, no rubs ABDOMEN: Soft, nontender. No hepatosplenomegaly, normal bowel sounds, no guarding or rigidity. Abdominal incisions are clean dry and intact EXTREMITIES: No clubbing, no edema, no cyanosis, 2+ pulses and upper and lower extremities. MUSCULOSKELETAL: Muscle strength and tone normal. SPINE: No scoliosis or deformity SKIN: No rashes CENTRAL NERVOUS SYSTEM: Alert and oriented -3. No focal deficits, tone is normal in all 4 extremities. PSYCHIATRIC: Alert and oriented -3. Appropriate affect. Intact judgment and insight. - Labs CBC & Chem 7: 09/05/19 09:54 09/05/19 09:54 Labs: Abnormal Lab Results - Last 24 Hours (Table) 09/05/19 09/05/19 Range/Units 09:54 09:54 RBC 3.57 L (3.80-5.40) m/uL Glucose 101 H (74-99) mg/dL Assessment and Plan Plan: Assessment: #1. Chest discomfort, EKG is pending, cardiac profile and troponin was negative, CTA chest was obtained showing no evidence of pulmonary embolism #2. acute hypoxemia likely secondary to postsurgical atelectatic changes in lung bases, doubt aspiration #3. pneumoperitoneum, expected finding. #4. robotic-assisted laparoscopic takedown of Bayron fundoplication along with lisinopril adhesions and repair of a recurrent incarcerated paraesophageal hiatal hernia. Patient is postop day #3 #5. obesity #6. history of obstructive sleep apnea. #7. history of migraines #8. history of esophageal dysmotility. #9. chronic generalized anxiety disorder Plan: CTA chest has been reviewed showing no evidence of pulmonary embolism, and areas of prominent atelectasis bilaterally, no fever or chills, no evidence of leukocytosis on today's blood work. One set of cardiac enzymes and troponins was negative, EKG is pending. Patient has been refusing her nebulized bronchodilators stating that they make her shaky and tachycardic, we will switch them to when necessary basis. Her asthma does not seem to be active right now. Encouraging deep breathing and coughing, ambulation, encouraged patient to sit up in the chair, she will be transferred to 3 . for continuous cardiac monitoring will continue to follow I performed a history & physical examination of the patient and discussed their management with my nurse practitioner, Josefina Feliciano. I reviewed the nurse practitioner's note and agree with the documented findings and plan of care. Lung sounds are positive for clear breath sounds. The findings and the impression was discussed with the patient. I attest to the documentation by the nurse practitioner. Time with Patient: Less than 30
[2019-09-05] MEDS ORDERED: NITROGLYCERIN SL TABS 0.4 MG TAB SUBLINGUAL PRN (12:31)
--- NOTE | 2019-09-05 12:36 | P.CRDCN ---
History of Present Illness Consult date: 09/05/19 History of present illness: This is a 49-year-old female with history of anxiety , who underwent a pattern esophageal hernia repair 4 days ago. Post surgically. Patient has been having some issues with the vaccination and has been put on national oxygen supplementation. It was felt that the hypoxemia could be related to postsurgical atelectasis. Patient has been having some discomfort in the left shoulder area which increases on deep breathing. Indurations has been having intermittent sharp, deep chest pain in the left upper chest which is localized with some radiation to the left arm. This is not associated with any nausea vomiting or sweating. Patient had couple of bouts of chest pain the last one being this morning. Her EKG did not reveal any acute changes. Her cardiac enzymes so far are negative. She also had a computed tomography scan of the ch est which was negative for pulmonary emboli. There are some atelectatic changes at the bases of the both lungs. At this point we'll continue to monitor her. Her chest pain. Appeared to be atypical. We'll continue to monitor cardiac enzymes. We'll also get an echocardiogram. Further examination depend upon the findings and clinical course. Meanwhile we'll also treat her with small dose of her metoprolol and also baby aspirin, and she will have nitroglycerin to be used on when necessary basis Review of Systems As per the chart Past Medical History Past Medical History: Asthma, Eye Disorder, GERD/Reflux, Hypertension, Sleep Apnea/CPAP/BIPAP Additional Past Medical History / Comment(s): migraines, NARROW LENS GLAUCOMA. DOES NOT USE CPAP. varicose veins, hiatal hernia, History of Any Multi-Drug Resistant Organisms: None Reported Past Surgical History: Breast Surgery, Hernia Repair, Hysterectomy Additional Past Surgical History / Comment(s): naerndra breast reduction, NARENDRA eye laser surgery, COLONOSCOPY, ALEXIS FUNDOPLICATION, laparoscopy x 7 for endometriosis Past Anesthesia/Blood Transfusion Reactions: Previous Problems w/ Anesthesia, Motion Sickness, Postoperative Nausea & Vomiting (PONV) Additional Past Anesthesia/Blood Transfusion Reaction / Comment(s): aspiration while under anesthesia for colonoscopy -got aspiriation pneumonia Smoking Status: Never smoker - Past Family History Brother(s) Family Medical History: Cancer Additional Family Medical History / Comment(s): COLON CANCER Medications and Allergies Home Medications Medication Instructions Recorded Confirmed Type ALPRAZolam [Xanax] 0.5 mg PO BID PRN 01/31/17 12/20/19 History Ergocalciferol (Vitamin D2) 50,000 unit PO WEFR 10/14/16 08/31/19 History [Vitamin D2] Hydrochlorothiazide [Hydrodiuril] 25 mg PO DAILY 10/14/16 08/31/19 History Montelukast [Singulair] 10 mg PO HS 06/12/17 08/31/19 History Albuterol Inhaler [Ventolin Hfa 1 - 2 puff INHALATION DIRECTED 08/31/19 09/02/19 History Inhaler] PRN Omeprazole [PriLOSEC] 40 mg PO QAM 08/31/19 08/31/19 History Spironolactone [Aldactone] 50 mg PO QAM 08/31/19 08/31/19 History Spironolactone [Aldactone] 100 mg PO HS 08/31/19 08/31/19 History Vitamin E Tab 180 mg PO HS 08/31/19 08/31/19 History rOPINIRole HCL [Requip] 0.25 mg PO HS 08/31/19 08/31/19 History Acetaminophen Oral Susp [Tylenol 500 mg PO Q4-6H PRN #400 ml 09/02/19 Rx Oral Susp] Bisacodyl [Dulcolax] 5 mg PO DAILY PRN #10 tablet. 09/02/19 Rx Omeprazole 40 mg PO DAILY #30 capsule. 09/02/19 Rx Ondansetron Odt [Zofran Odt] 4 mg PO Q8HR PRN #9 tab 09/02/19 Rx Simethicone 40 mg/0.6 ml Drops 40 mg PO PCHS PRN #30 ml 09/02/19 Rx [Mylicon Drops] Allergies Allergy/AdvReac Type Severity Reaction Status Date / Time No Known Allergies Allergy Verified 09/02/19 20:18 Physical Exam Vitals: Vital Signs Temp Pulse Pulse Pulse Resp BP Pulse Ox 09/05/19 11:39 97.9 F 79 18 114/67 93 L 09/05/19 09:12 73 09/05/19 08:58 68 09/05/19 08:00 64 22 126/80 93 L 09/05/19 07:25 78 09/05/19 03:44 80 12/23/19 03:31 68 09/05/19 00:00 98.6 F 57 L 24 114/73 91 L 09/04/19 19:49 98 F 54 L 16 91 L 09/04/19 19:00 93 L 09/04/19 15:41 98.0 F 60 18 117/72 90 L 09/04/19 13:48 16 90 L Intake and Output 09/04/19 09/05/19 09/05/19 22:59 06:59 14:59 Intake Total 50 1300 Output Total 400 1850 Balance -350 -550 Intake: Oral 50 1300 Output: Urine 400 1850 Other: Voiding Method Toilet Toilet GENERAL EXAM: Patient is alert and oriented and doesn't appear to be in any acute distress HEENT: Normocephalic. Normal reaction of pupils, equal size, normal range of extraocular motion. No erythema or exudates in the throat. NECK: No masses, no nuchal rigidity. CHEST: No chest wall deformity. LUNGS: Diminished breath sounds at bases. No wheezing or rhonchi HEART: S1 and S2 normal with no audible mumurs or gallops. Regular rhythm, femorals equal on both sides.. ABDOMEN: No hepatosplenomegaly, normal bowel sounds, no guarding or rigidity. SKIN: No rashes CENTRAL NERVOUS SYSTEM: No focal deficits. EXTREMITIES: No cyanosis, clubbing or edema. Results 09/05/19 09:54 09/05/19 09:54 Cardiac Enzymes 09/05/19 Range/Units 09:54 CK-MB (CK-2) 1.0 (0.0-2.4) ng/mL Troponin I <0.012 (0.000-0.034) ng/mL CBC 09/05/19 Range/Units 09:54 WBC 7.2 (3.8-10.6) k/uL RBC 3.57 L (3.80-5.40) m/uL Hgb 11.9 (11.4-16.0) gm/dL Hct 35.0 (34.0-46.0) % Plt Count 187 (150-450) k/uL Comprehensive Metabolic Panel 09/05/19 Range/Units 09:54 Sodium 143 (137-145) mmol/L Potassium 3.7 (3.5-5.1) mmol/L Chloride 107 (98-107) mmol/L Carbon Dioxide 28 (22-30) mmol/L BUN 13 (7-17) mg/dL Creatinine 0.81 (0.52-1.04) mg/dL Glucose 101 H (74-99) mg/dL Calcium 9.8 (8.4-10.2) mg/dL Current Medications Generic Name Dose Route Start Last Admin Trade Name Freq PRN Reason Stop Dose Admin Hydrocodone Bitart/Acetaminophen 1 each 09/04/19 13:23 09/05/19 09:51 Epworth 5-325 PO 1 each Q4HR PRN Administration Pain Albuterol Sulfate 2.5 mg 09/05/19 10:46 Ventolin Nebulized INHALATION RT-QID PRN Dyspnea Aspirin 81 mg 09/05/19 12:28 Aspirin PO DAILY GRABIEL Diphenhydramine HCl 25 mg 09/02/19 18:52 Benadryl IVP Q6HR PRN Itching Enoxaparin Sodium 40 mg 09/03/19 09:00 09/05/19 08:30 Lovenox SQ 40 mg DAILY GRABIEL Administration Fentanyl Citrate 500 mcg 09/02/19 18:58 Fentanyl [employer] IV PER PROTOCOL PRN Pain Control Protocol Hydrochlorothiazide 25 mg 09/03/19 09:00 09/05/19 08:34 Hydrodiuril PO 25 mg DAILY GRABIEL Administration Hydromorphone HCl 0.5 mg 09/03/19 14:55 09/05/19 03:54 Dilaudid IVP 0.25 mg Q3HR PRN Administration Pain Scale 4 to 6 Hydromorphone HCl 1 mg 09/03/19 14:56 Dilaudid IVP Q4HR PRN Pain Scale 6 to 10 Hyoscyamine 0.125 mg 09/03/19 00:00 09/05/19 05:51 Levsin Drops PO 0.125 mg Q6HR GRABIEL Administration Ketorolac Tromethamine 30 mg 09/04/19 13:22 Toradol IVP 09/08/19 13:22 Q6HR PRN Pain Lorazepam 1 mg 09/02/19 18:59 Ativan IV Q4HR PRN Anxiety Metoclopramide HCl 10 mg 09/04/19 13:21 Reglan IVP Q6HR PRN Nausea And Vomiting Metoprolol Tartrate 12.5 mg 09/05/19 12:30 Lopressor PO DAILY GRABIEL Montelukast Sodium 10 mg 09/02/19 21:00 09/04/19 20:35 Singulair PO 10 mg HS GRABIEL Administration Naloxone HCl 0.2 mg 09/02/19 18:52 Narcan IV Q2M PRN Opioid Reversal Ondansetron HCl 4 mg 09/04/19 13:21 Zofran IVP Q6HR PRN Nausea And Vomiting Pantoprazole Sodium 40 mg 09/03/19 09:00 09/05/19 08:30 Protonix IV 40 mg DAILY GRABIEL Administration Simethicone 80 mg 09/03/19 00:00 09/05/19 05:52 Mylicon Drops PO 80 mg Q6HR GRABIEL Administration Sodium Chloride 10 ml 09/04/19 21:00 09/05/19 09:53 Saline Flush IV Not Given BID GRABIEL Spironolactone 50 mg 09/03/19 09:00 09/05/19 08:34 Aldactone PO 50 mg QAM GRABIEL Administration Spironolactone 100 mg 09/02/19 21:00 09/04/19 20:35 Aldactone PO 100 mg HS GRABIEL Administration Tamsulosin HCl 0.4 mg 09/03/19 08:30 09/05/19 08:30 Flomax PO 0.4 mg [id number] GRABIEL Administration Intake and Output 09/04/19 09/05/19 09/05/19 22:59 06:59 14:59 Intake Total 50 1300 Output Total 400 1850 Balance -350 -550 Intake: Oral 50 1300 Output: Urine 400 1850 Other: Voiding Method Toilet Toilet 09/05/19 09:54 09/05/19 09:54 EKG Interpretations (text) Sinus rhythm without acute ST-T abnormalities Assessment and Plan (1) Chest pain Current Visit: Yes Status: Acute Code(s): R07.9 - CHEST PAIN, UNSPECIFIED SNOMED Code(s): 34871460 (2) History of repair of hiatal hernia Current Visit: Yes Status: Acute Code(s): Z98.890 - OTHER SPECIFIED POSTPROCEDURAL STATES; Z87.19 - PERSONAL HISTORY OF OTHER DISEASES OF THE DIGESTIVE SYSTEM SNOMED Code(s): 790481922 (3) History of sleep apnea Current Visit: Yes Status: Acute Code(s): Z86.69 - PERSONAL HISTORY OF DIS OF THE NERVOUS SYS AND SENSE ORGANS SNOMED Code(s): 776061082 Plan: Continue to monitor her. Get an echocardiogram. Follow troponin trend. Further recommendation will depend upon the clinical course and findings on the above tests.
[2019-09-05] MEDS: ASPIRIN 81 MG PO SCH (12:37)
[2019-09-05] MEDS: METOPROLOL TARTRATE 12.5 MG TAB PO SCH (12:37)
[2019-09-05] MEDS: MONTELUKAST 10 MG TAB PO SCH (20:04)
[2019-09-06] MEDS: HYOSCYAMINE ORAL DROPS 1.875 MG/15 ML BOTTLE PO SCH ×5 (01:07→23:43)
[2019-09-06] MEDS: SIMETHICONE 40 MG/0.6 ML DROPS 2,000 MG/30 ML BOTTLE PO SCH ×5 (01:07→23:43)
--- NOTE | 2019-09-06 07:54 | P.PN ---
Progress Note - Text Progress Note Date: 09/05/19 the patient was transferred to select the floor this morning. She still had persistently low options sats on room air. She underwent computed tomography scan of the chest today to about possible pulmonary was. Ththere is no evidence of pulmonary and was. Patient does have significant atelectasis of her lung bases. She denies any significant abdominal pain. On exam her vital signs are stable. Her abdomen soft. Postoperative atelectasis. Patient will increase her pulmonary toilet. She will be evaluated by pulmonology today.
[2019-09-06] MEDS: SPIRONOLACTONE 25 MG TAB PO SCH ×2 (10:03→20:19)
[2019-09-06] MEDS: TAMSULOSIN 0.4 MG CAP.ER.24H PO SCH (10:03)
[2019-09-06] MEDS: PANTOPRAZOLE 40 MG/10 ML VIAL IV SCH (10:04)
[2019-09-06] MEDS: METOPROLOL TARTRATE 12.5 MG TAB PO SCH (10:04)
[2019-09-06] MEDS: HYDROCHLOROTHIAZIDE 25 MG TAB PO SCH (10:04)
[2019-09-06] MEDS: ENOXAPARIN 40 MG/0.4 ML SYRINGE SQ SCH (10:04)
[2019-09-06] MEDS: ASPIRIN 81 MG PO SCH (10:04)
--- NOTE | 2019-09-06 11:03 | P.PN ---
Subjective Progress Note Date: 09/06/19 Principal diagnosis: Acute hypoxemia secondary to postsurgical atelectatic changes 49-year-old female patient underwent a paraesophageal hernia repair. The surgery was done yesterday evening and the patient was having dysphagia related to diaphragmatic paraesophageal hiatal hernia with severe reflux. She was doing well until this afternoon prior to discharge which she became hypoxic. She was placed on 2 L about 2 by nasal cannula and her pulse ox 92%. Chest x-ray was done and showed no peritoneum and air under diaphragm which is expected finding following the surgery. There was also some atelectatic changes and left lung base. No fever. No chills. No night sweats. No cough or sputum production. She has history of mild intermittent bronchial asthma maintained on short-acting albuterol on a when necessary basis. She had developed some shoulder pain which responded to Dilaudid. No angina. No sweating. No diaphoresis. No aspiration. No fever. No chills. Swallow testing following the surgery was within normal limits. The patient is known to have mild intermittent bronchial asthma, dysphagia and migraines and history of chronic anxiety disorder. on today's evaluation of 09 04 2019 the patient is feeling better. She is still experiencing some left shoulder pain for which she is going to be getting alcohol. She is on oxygen between 1-1/2 L and the dose being titrated to maintain a saturation above 90%. Her follow-up chest x-ray was done today and showed some atelectatic changes and left lung base. The pneumoperitoneum that was seen in the right lung under the diaphragm as recovered. She is using incentive spirometer on a regular basis. She is passing flatus. On 09/05/2019 patient seen in follow-up on the pediatric unit, this morning she is on 5 L of oxygen her pulse ox is 90%, she has been having chest discomfort which she describes as deep sharp pinch in her mid chest, radiating to her left shoulder, and her left arm, he states it lasts several minutes, comes and goes and does not have any radiating or precipitating factors. I was told by nursing staff the patient has been refusing her breathing treatments stating that they make her tachycardic and more short of breath. Patient has had no fever or chills, hemodynamically stable, lung sounds are essentially clear, no wheezing, no rhonchi, occasional cough, no phlegm production, CTA chest was obtained showing no definite evidence of pulmonary embolus, showed volume loss with areas of prominent atelectasis versus airspace disease at the lung bases. Today's labs have been reviewed showing no evidence of leukocytosis, white blood cell count of 7.2, hemoglobin was 11.9, electrolytes and renal profile were within normal limits, cardiac panel was negative, troponin was less than 0.012, stat EKG was requested. And patient will be placed on continuous telemetry mo nitoring and transferred to [facility] On 09/06/2019 patient seen in follow-up on selective care unit. She is awake and alert, sitting up in the chair, in no acute distress, room air pulse ox is 95%, no cough or congestion, lung sounds are essentially clear to auscultation, afebrile, hemodynamically stable, no wheezing, no rhonchi, no rales. Patient has been evaluated by cardiology, she is being treated medically with beta blockers, and oral aspirin, echocardiogram is pending, patient has not had r ecurrence of chest pain, she still has left shoulder pain. Objective - Vital Signs Vital signs: Vital Signs Temp 97.5 F L 09/06/19 04:00 Pulse 64 09/06/19 08:10 Resp 18 09/06/19 08:10 BP 112/76 09/06/19 08:10 Pulse Ox 95 09/06/19 08:10 Intake & Output 09/05/19 09/06/19 09/06/19 18:59 06:59 18:59 Intake Total 600 Output Total 750 Balance 600 -750 Weight 95.3 kg Intake: Oral 600 Output: Urine 750 Other: Voiding Method Toilet # Voids 0 1 - Exam GENERAL EXAM: Alert, very pleasant, 49-year-old white female, on room air with a pulse ox of 95% comfortable in no apparent distress. HEAD: Normocephalic/atraumatic. EYES: Normal reaction of pupils, equal size. Conjunctiva pink, sclera white. NOSE: Clear with pink turbinates. THROAT: No erythema or exudates. NECK: No masses, no JVD, no thyroid enlargement, no adenopathy. CHEST: No chest wall deformity. Symmetrical expansion. LUNGS: Equal air entry with no crackles, wheeze, rhonchi or dullness. CVS: Regular rate and rhythm, normal S1 and S2, no gallops, no murmurs, no rubs ABDOMEN: Soft, nontender. No hepatosplenomegaly, normal bowel sounds, no guarding or rigidity. Abdominal incisions are clean dry and intact EXTREMITIES: No clubbing, no edema, no cyanosis, 2+ pulses and upper and lower extremities. MUSCULOSKELETAL: Muscle strength and tone normal. SPINE: No scoliosis or deformity SKIN: No rashes CENTRAL NERVOUS SYSTEM: Alert and oriented -3. No focal deficits, tone is normal in all 4 extremities. PSYCHIATRIC: Alert and oriented -3. Appropriate affect. Intact judgment and insight. - Labs CBC & Chem 7: 09/05/19 09:54 09/05/19 09:54 Assessment and Plan Plan: Assessment: #1. Chest discomfort, EKG is pending, cardiac profile and troponin was negative, CTA chest was obtained showing no evidence of pulmonary embolism #2. acute hypoxemia likely secondary to postsurgical atelectatic changes in lung bases, doubt aspiration #3. pneumoperitoneum, expected finding. #4. robotic-assisted laparoscopic takedown of Bayron fundoplication along with lisinopril adhesions and repair of a recurrent incarcerated paraesophageal hiatal hernia. Patient is postop day #3 #5. obesity #6. history of obstructive sleep apnea. #7. history of migraines #8. history of esophageal dysmotility. #9. chronic generalized anxiety disorder Plan: From pulmonary perspective patient stable, she is currently on room air, her pulse ox is 95%, her lungs are clear, her asthma is not active at this time, continue with the breathing treatments on an as-needed basis, continue encouraging deep breathing and coughing, increase ambulation, patient has not had recurrence of chest pain, still has left shoulder pain. Cardiology is following. CT chest did not show evidence of pulmonary embolism, did show areas of bilateral atelectasis. From pulmonary perspective patient is stable, we will sign off and follow on as-needed basis. I performed a history & physical examination of the patient and discussed their management with my nurse practitioner, Josefina Feliciano. I reviewed the nurse practitioner's note and agree with the documented findings and plan of care. Lung sounds are positive for clear breath sounds. The findings and the impression was discussed with the patient. I attest to the documentation by the nurse practitioner. Time with Patient: Less than 30
--- NOTE | 2019-09-06 11:31 | ECHOF ---
Referral Reason:Heart function, recent chest pain MEASUREMENTS -------- HEIGHT: 165.1 cm WEIGHT: 91.2 kg BP: RVIDd: 3.9 cm (< 3.3) IVSd: 1.3 cm (0.6 - 1.1) LVIDd: 3.8 cm (3.9 - 5.3) LVPWd: 1.2 cm (0.6 - 1.1) IVSs: 1.5 cm LVIDs: 3.0 cm LVPWs: 1.4 cm LA Diam: 3.9 cm (2.7 - 3.8) LAESV Index (A-L): 25.42 ml/m Ao Diam: 2.9 cm (2.0 - 3.7) AV Cusp: 1.9 cm (1.5 - 2.6) LA Diam: 4.1 cm (2.7 - 3.8) MV EXCURSION: 21.518 mm (> 18.000) MV EF SLOPE: 165 mm/s (70 - 150) EPSS: 0.4 cm MV E Ruben: 0.75 m/s MV DecT: 130 ms MV A Ruben: 0.53 m/s MV E/A Ratio: 1.41 RAP: 5.00 mmHg RVSP: 21.75 mmHg FINDINGS -------- Sinus rhythm. This was a technically adequate study. LV size, wall thickness and systolic function are normal, with an EF greater than 55%. The left rell tricular size is normal. The right ventricle is normal in size. The left atrial size is normal. The right atrial size is normal. The aortic valve is trileaflet, and appears structurally normal. No aortic stenosis or regurgitation. The mitral valve is normal. Mild mitral regurgitation is present. Mild tricuspid regurgitation present. Right ventricular systolic pressure is normal at < 35 mmHg. The right ventricular systolic pressure, as measured by Doppler, is 21.75mmHg. There is no pulmonic regurgitation present. The aortic root size is normal. There is no pericardial effusion. CONCLUSIONS -------- 1. Sinus rhythm. 2. This was a technically adequate study. 3. LV size, wall thickness and systolic function are normal, with an EF greater than 55%. 4. The left ventricular size is normal. 5. The left atrial size is normal. 6. The aortic valve is trileaflet, and appears structurally normal. No aortic stenosis or regurgitati on. 7. Mild mitral regurgitation is present. 8. Mild tricuspid regurgitation present. 9. Right ventricular systolic pressure is normal at < 35 mmHg. 10. There is no pulmonic regurgitation present. 11. The aortic root size is normal. 12. There is no pericardial effusion. [employer]: Stacey Pat RDCS
[2019-09-06 12:54] VITALS: BMI 33.9
--- NOTE | 2019-09-06 13:31 | P.PN ---
Subjective Progress Note Date: 09/06/19 CHIEF COMPLAINT: Hiatal hernia HISTORY OF PRESENT ILLNESS: Patient seen and examined at the bedside with Dr. Palza. Patient is status post reduction and repair of recurrent incarcerated paraesophageal hiatal hernia. Patient was transferred to selective care unit yesterday secondary to hypoxia. She is being followed by pulmonary services. Patient reports shortness of breath if she is on room air. She states her shortness of breath is improved when wearing oxygen. CTA was completed yesterday negative for pulmonary embolism. Tolerating clear liquid diet. PHYSICAL EXAM: VITAL SIGNS: Reviewed. GENERAL: Well-developed in no acute distress. HEENT: No sclera icterus. Extraocular movements grossly intact. Moist buccal mucosa. Head is atraumatic, normocephalic. ABDOMEN: Soft. Nondistended. Appropriate surgical tenderness. Surgical sites clean dry and intact without drainage. NEUROLOGIC: Alert and oriented. Cranial nerves II through XII grossly intact. ASSESSMENT: 1. Status post reduction and repair of recurrent incarcerated paraesophageal hiatal hernia 2. Postoperative hypoxia, suspect secondary to atelectasis, a potential outcome of surgery PLAN: Advance diet to Bayron full liquid diet Pulmonary following. Continue use of incentive spirometer. Anticipate discharge home tomorrow if patients pulmonary status remains stable Nurse practitioner note has been reviewed by physician. Signing provider agrees with the documented findings, assessment, and plan of care. Objective - Vital Signs Vital signs: Vital Signs Temp 97.5 F L 09/06/19 04:00 Pulse 64 09/06/19 08:10 Resp 18 09/06/19 08:10 BP 112/76 09/06/19 08:10 Pulse Ox 95 09/06/19 08:10 Intake & Output 09/05/19 09/06/19 09/06/19 18:59 06:59 18:59 Intake Total 600 240 Output Total 750 Balance 600 -750 240 Weight 95.3 kg 95.3 kg Intake: Oral 600 240 Output: Urine 750 Other: Voiding Method Toilet # Voids 0 1 2 - Labs CBC & Chem 7: 09/05/19 09:54 09/05/19 09:54
[2019-09-06] MEDS: HYDROcodone/APAP 5-325MG 1 EACH TAB PO PRN (16:48)
--- NOTE | 2019-09-06 18:44 | P.PN ---
Subjective Progress Note Date: 09/06/19 This is a 49-year-old female status post repair of the hilar hernia. Seen for symptoms of chest pain. Cardiac enzymes have been negative. Echo cardiogram showed normal LV function. Patient is feeling better today. She is having some shoulder pain. From Cardec standpoint we'll continue current medical therapy. When patient is stable. She may need a outpatient stress test to rule out underlying ischemic heart disease. We'll follow as needed Objective - Vital Signs Vital signs: Vital Signs Temp 97.5 F L 09/06/19 04:00 Pulse 73 09/06/19 16:00 Resp 18 09/06/19 16:00 BP 111/72 09/06/19 16:00 Pulse Ox 93 L 09/06/19 16:00 Intake & Output 09/05/19 09/06/19 09/06/19 18:59 06:59 18:59 Intake Total 600 640 Output Total 750 1350 Balance 600 -750 -710 Weight 95.3 kg 95.3 kg Intake: Oral 600 640 Output: Urine 750 1350 Other: Voiding Method Toilet # Voids 0 1 2 - Exam GENERAL EXAM: Patient is alert and oriented and doesn't appear to be in any acute distress HEENT: Normocephalic. Normal reaction of pupils, equal size, normal range of extraocular motion. No erythema or exudates in the throat. NECK: No masses, no nuchal rigidity. CHEST: No chest wall deformity. LUNGS: Equal air entry with no crackles or wheeze. HEART: S1 and S2 normal with no audible mumurs or gallops. Regular rhythm, femorals equal on both sides.. ABDOMEN: Postsurgical SKIN: No rashes CENTRAL NERVOUS SYSTEM: No focal deficits. EXTREMITIES: No cyanosis, clubbing or edema. - Labs CBC & Chem 7: 09/05/19 09:54 09/05/19 09:54 Assessment and Plan (1) Chest pain Current Visit: Yes Status: Acute Code(s): R07.9 - CHEST PAIN, UNSPECIFIED SNOMED Code(s): 04455191 (2) History of repair of hiatal hernia Current Visit: Yes Status: Acute Code(s): Z98.890 - OTHER SPECIFIED POSTPROCEDURAL STATES; Z87.19 - PERSONAL HISTORY OF OTHER DISEASES OF THE DIGESTIVE SYSTEM SNOMED Code(s): 044095665 (3) History of sleep apnea Current Visit: Yes Status: Acute Code(s): Z86.69 - PERSONAL HISTORY OF DIS OF THE NERVOUS SYS AND SENSE ORGANS SNOMED Code(s): 408706104 Plan: Her cardiac enzymes are negative. Echo shows normal LV function. Patient is not having any more chest pain. No further cardiac workup at this time. May consider outpatient stress test. Thank you
[2019-09-06] MEDS: MONTELUKAST 10 MG TAB PO SCH (20:18)
[2019-09-07] MEDS: SIMETHICONE 40 MG/0.6 ML DROPS 2,000 MG/30 ML BOTTLE PO SCH ×2 (05:09→12:31)
[2019-09-07] MEDS: HYOSCYAMINE ORAL DROPS 1.875 MG/15 ML BOTTLE PO SCH ×2 (05:09→12:31)
[2019-09-07] MEDS: HYDROcodone/APAP 5-325MG 1 EACH TAB PO PRN (05:09)
[2019-09-07] MEDS: METOPROLOL TARTRATE 12.5 MG TAB PO SCH (08:07)
[2019-09-07] MEDS: ASPIRIN 81 MG PO SCH (08:07)
[2019-09-07] MEDS: HYDROCHLOROTHIAZIDE 25 MG TAB PO SCH (08:08)
[2019-09-07] MEDS: PANTOPRAZOLE 40 MG/10 ML VIAL IV SCH (08:08)
[2019-09-07] MEDS: TAMSULOSIN 0.4 MG CAP.ER.24H PO SCH (08:08)
[2019-09-07] MEDS: SPIRONOLACTONE 25 MG TAB PO SCH (08:08)
[2019-09-07] MEDS: ENOXAPARIN 40 MG/0.4 ML SYRINGE SQ SCH (08:08)
--- NOTE | 2019-09-07 09:55 | P.DS ---
Providers Date of admission: 09/02/19 13:05 Expected date of discharge: 09/07/19 Attending physician: Elisabeth Fontanez Consults: 09/03/19 15:27 Consult Physician Urgent Consulting Provider: Dany Escobar Consult Reason/Comments: decr o2 sat, hx aspir pneum, s/p hiatal hernia repair Do you want consulting provider notified?: Yes 09/05/19 09:05 Consult Physician Urgent Consulting Provider: Dileep Martines Consult Reason/Comments: new onset chest pain Do you want consulting provider notified?: Yes Primary care physician: Tara Valencia [facility] Course: This is a 49-year-old female who underwent repair of recurrent hiatal hernia. Patient had issues with postoperative hypoxia due to atelectasis. Please see hospital chart. Patient discharged home. On the day of discharge her abdomen soft. Patient known shortness of breath. She'll follow-up Dr. Florez next week. Procedures: Laparoscopic hiatal hernia repair Patient Condition at Discharge: Good Plan - Discharge Summary Discharge Rx Participant: Yes New Discharge Prescriptions: New Bisacodyl [Dulcolax] 5 mg PO DAILY PRN #10 tablet. PRN Reason: Constipation Simethicone 40 mg/0.6 ml Drops [Mylicon Drops] 40 mg PO PCHS PRN #30 ml PRN Reason: Gas Omeprazole 40 mg PO DAILY #30 capsule. Ondansetron Odt [Zofran Odt] 4 mg PO Q8HR PRN #9 tab PRN Reason: Nausea Acetaminophen Oral Susp [Tylenol Oral Susp] 500 mg PO Q4-6H PRN #400 ml PRN Reason: Pain No Action Hydrochlorothiazide [Hydrodiuril] 25 mg PO DAILY Ergocalciferol (Vitamin D2) [Vitamin D2] 50,000 unit PO WEFR ALPRAZolam [Xanax] 0.5 mg PO BID PRN PRN Reason: Anxiety Montelukast [Singulair] 10 mg PO HS rOPINIRole HCL [Requip] 0.25 mg PO HS Spironolactone [Aldactone] 100 mg PO HS Spironolactone [Aldactone] 50 mg PO QAM Omeprazole [PriLOSEC] 40 mg PO QAM Vitamin E Tab 180 mg PO HS Albuterol Inhaler [Ventolin Hfa Inhaler] 1 - 2 puff INHALATION DIRECTED PRN PRN Reason: Shortness Of Breath Discharge Medication List ALPRAZolam [Xanax] 0.5 mg PO BID PRN 10/14/16 [History] Ergocalciferol (Vitamin D2) [Vitamin D2] 50,000 unit PO WEFR 10/14/16 [History] Hydrochlorothiazide [Hydrodiuril] 25 mg PO DAILY 10/14/16 [History] Montelukast [Singulair] 10 mg PO HS 06/12/17 [History] Albuterol Inhaler [Ventolin Hfa Inhaler] 1 - 2 puff INHALATION DIRECTED PRN 08/31/19 [History] Omeprazole [PriLOSEC] 40 mg PO QAM 08/31/19 [History] Spironolactone [Aldactone] 50 mg PO QAM 08/31/19 [History] Spironolactone [Aldactone] 100 mg PO HS 08/31/19 [History] Vitamin E Tab 180 mg PO HS 08/31/19 [History] rOPINIRole HCL [Requip] 0.25 mg PO HS 08/31/19 [History] Acetaminophen Oral Susp [Tylenol Oral Susp] 500 mg PO Q4-6H PRN #400 ml 09/02/19 [Rx] Bisacodyl [Dulcolax] 5 mg PO DAILY PRN #10 tablet. 09/02/19 [Rx] Omeprazole 40 mg PO DAILY #30 capsule. 09/02/19 [Rx] Ondansetron Odt [Zofran Odt] 4 mg PO Q8HR PRN #9 tab 09/02/19 [Rx] Simethicone 40 mg/0.6 ml Drops [Mylicon Drops] 40 mg PO PCHS PRN #30 ml 09/02/19 [Rx] Follow up Appointment(s)/Referral(s): Niki Kumar MD [STAFF PHYSICIAN] - 09/15/19 Patient Instructions/Handouts: Laparoscopic Hiatal Hernia Repair (DC) Activity/Diet/Wound Care/Special Instructions: Liquid diet only. No carbonated beverages. No straws. No lifting over 4 pounds in 4 weeks, October 03. May shower. No bath tub soaks. May take aebz-fed-lkdacyc Tylenol or Aleve for pain. Do not remove scopolamine patch for 3 days, if present Discharge Disposition: HOME SELF-CARE
[2019-09-07 10:06] VITALS: BP 111/61; PULSE 81; RESP 20; TEMP 97.9
== END 2019-09-07 13:05 | disposition home or self-care (01) | DRG 327 ==
LOC: 2ORMAIN 09-02 13:05 → 6PED 09-02 19:09 → 3SCARD 09-05 11:25
PROVIDERS: ADMIT Surgery Plastic and Reconstructive Surgery; ATTEND Surgery Plastic and Reconstructive Surgery
PROC: 8E0W4CZ Robotic Assisted Procedure of Trunk Region, Percutaneous Endoscopic Approach (ICD-10-PCS; principal; 2019-09-02 14:35)
PROC: 0DJ08ZZ Inspection of Upper Intestinal Tract, Via Natural or Artificial Opening Endoscopic (ICD-10-PCS; principal; 2019-09-02 14:35)
PROC: 0DN64ZZ Release Stomach, Percutaneous Endoscopic Approach (ICD-10-PCS; principal; 2019-09-02 14:35)
PROC: 0BUT4JZ Supplement Diaphragm with Synthetic Substitute, Percutaneous Endoscopic Approach (ICD-10-PCS; principal; 2019-09-02 14:35)
DX: K44.0 Diaphragmatic hernia with obstruction, without gangrene (principal); J98.11 Atelectasis; E66.09 Other obesity due to excess calories; F41.1 Generalized anxiety disorder; G43.909 Migraine, unspecified, not intractable, without status migrainosus; G47.33 Obstructive sleep apnea (adult) (pediatric); I10 Essential (primary) hypertension; J44.9 Chronic obstructive pulmonary disease, unspecified; K21.9 Gastro-esophageal reflux disease without esophagitis; K22.2 Esophageal obstruction; K22.4 Dyskinesia of esophagus; K29.50 Unspecified chronic gastritis without bleeding; K66.0 Peritoneal adhesions (postprocedural) (postinfection); R09.02 Hypoxemia; Z68.32 Body mass index [BMI] 32.0-32.9, adult; Z79.899 Other long term (current) drug therapy; Z80.0 Family history of malignant neoplasm of digestive organs; Z90.710 Acquired absence of both cervix and uterus
CPT/HCPCS: 71046; 71275; 74210; 80048; 80051; 82310; 82550; 82553; 82565; 83735; 84100; 84484; 84520; 85025; 85027; 93005; 93306; 94640; 94760

== ENCOUNTER → 2019-09-01 | Outpatient (CLI) | payer OTHER | END | disposition home or self-care (01) | LOC: LABPAT 08:03 | PROVIDERS: ATTEND Anesthesiology | DX: Z01.818 Encounter for other preprocedural examination (principal); Z01.812 Encounter for preprocedural laboratory examination | CPT/HCPCS: 93005 ==

== ENCOUNTER → 2019-09-23 | Outpatient (CLI) | payer OTHER ==
--- NOTE | 2019-09-23 13:37 | US ---
EXAMINATION TYPE: US gallbladder DATE OF EXAM: 09/23/2019 COMPARISON: CT December 24, 2018 CLINICAL HISTORY: K81.9 cholecystitis. Patient had recent hiatal hernia redo repair; c/o heartburn. EXAM MEASUREMENTS: Liver Length: 13.6 cm Gallbladder Wall: 0.1 cm CBD: 0.2 cm Right Kidney: 9.6 x 5.1 x 4.6 cm Pancreas: Obscured by bowel gas Liver: wnl Gallbladder: multiple shadowing stones seen within Evidence for sonographic Brock's sign: no CBD: wnl Right Kidney: No hydronephrosis or masses seen Suboptimal evaluation of pancreas on images saved. Visualized liver heterogeneously hyperechoic. Multiple shadowing stones in gallbladder. No pericholec ystic fluid or abnormal gallbladder wall thickening. Sonographic Brock's sign negative. IMPRESSION: Redemonstration of diffuse fatty infiltration of liver. Gallstones noted without secondar y ultrasound evidence for acute cholecystitis.
== END | disposition home or self-care (01) ==
LOC: RADUSWWP 12:33
PROVIDERS: ATTEND Surgery Plastic and Reconstructive Surgery
DX: K76.0 Fatty (change of) liver, not elsewhere classified (principal); K80.20 Calculus of gallbladder without cholecystitis without obstruction
CPT/HCPCS: 76705

== ENCOUNTER → 2019-10-03 | Outpatient (CLI) | payer OTHER ==
--- NOTE | 2019-10-03 18:24 | CT ---
EXAMINATION TYPE: CT abdomen pelvis w con DATE OF EXAM: 10/03/2019 COMPARISON: 12/24/2018 HISTORY: Left lower quadrant abdominal pain. CT DLP: 1406 mGycm Automated exposure control for dose reduction was used. CONTRAST: CT scan of the abdomen pelvis is performed with IV Contrast, patient injected with 100ml mL of Isovue 300. FINDINGS- LUNG BASES-subsegmental changes involving the lung bases most typical of atelectasis. Small hiatal he rnia noted.. LIVER/GB- No gross abnormality is appreciated. PANCREAS- No gross abnormality is seen. SPLEEN- No gross abnormality is seen. ADRENALS- No gross abnormality is seen. KIDNEYS/BLADDER- no hydronephrosis nephrolithiasis or renal mass. BOWEL-bowel gas pattern nonspecific with no obstruction. Mild changes of diverticulosis involving the sigmoid colon and left colon.. LYMPH NODES- No greater than 1cm abdominal or pelvic lymph nodes areappreciated. OSSEOUS STRUCTURES-atrophic and degenerative changes of the vertebral column. Arthropathy of the hip joints. Central disc bulging L5-S1. OTHER- aorta of normal caliber. No free fluid. IMPRESSION- 1. Mild diverticulosis with no CT evidence of diverticulitis.
== END | disposition home or self-care (01) ==
LOC: RADCTMAIN 15:47
PROVIDERS: ATTEND Surgery Plastic and Reconstructive Surgery
DX: K57.90 Diverticulosis of intestine, part unspecified, without perforation or abscess without bleeding (principal)
CPT/HCPCS: 74177; Q9967

== ENCOUNTER → 2019-10-14 | Day surgery (SDC) | payer OTHER ==
[2019-10-12 11:50] VITALS: BMI 31.6
--- NOTE | 2019-10-13 21:38 | P.GSHP ---
History of Present Illness H&P Date: 10/14/19 CHIEF COMPLAINT: Cholecystitis HISTORY OF PRESENT ILLNESS: The patient is a 49-year-old female who presents with history of epigastric including right upper quadrant abdominal pain. She underwent diagnostic studies for her gallbladder. Separately her clinical picture was consistent with cholecystitis. Now she presents for surgical intervention. PAST MEDICAL HISTORY: Please see list PAST SURGICAL HISTORY: Please see list MEDICATIONS: Please see list ALLERGIES: Please see list SOCIAL HISTORY: Please see list FAMILY HISTORY: Please see list REVIEW OF ORGAN SYSTEMS: CONSTITUTIONAL: No reports of fevers or chills. PHYSICAL EXAM: VITAL SIGNS: Afebrile vital signs stable GENERAL: Well-developed pleasant in no acute distress. HEENT: No scleral icterus. Extraocular movements grossly intact. Moist buccal mucosa. NECK: Supple without lymphadenopathy. CHEST: Unlabored respirations. Equal bilateral excursions. CARDIOVASCULAR: Regular rate regular rhythm rhythm. Distal 2+ pulses. ABDOMEN: Soft, nondistended. Tender along the epigastrium and right upper quadrant. MUSCULOSKELETAL: No clubbing, cyanosis, or edema. NEURO: Cranial nerves II to XII within normal limits. No focal or lateralizing signs. PSYCH: Alert and oriented to person, place and time. SKIN: Well-perfused good skin turgor. ASSESSMENT: 1. Epigastric and right upper quadrant abdominal pain 2. Chronic cholecystitis 3. Symptomatic gallstones. PLAN: 1. Will need a robotic cholecystectomy possible open. Benefits and risks were described. 2. Heparin for DVT prophylaxis 5000 units. 3. Antibiotic prophylaxis. Past Medical History Past Medical History: Asthma, Eye Disorder, GERD/Reflux, Hypertension, Sleep Apnea/CPAP/BIPAP Additional Past Medical History / Comment(s): migraines, hx NARROW LENS GLAUCOMA. DOES NOT USE CPAP. states spironolactone for hair loss, hx shingles History of Any Multi-Drug Resistant Organisms: None Reported Past Surgical History: Breast Surgery, Hernia Repair, Hysterectomy Additional Past Surgical History / Comment(s): narendra breast reduction, NARENDRA eye laser surgery, COLONOSCOPY, ALEXIS fundlaplasty Past Anesthesia/Blood Transfusion Reactions: Previous Problems w/ Anesthesia, Motion Sickness, Postoperative Nausea & Vomiting (PONV) Additional Past Anesthesia/Blood Transfusion Reaction / Comment(s): aspiration while under anesthesia for colonoscopy Smoking Status: Never smoker - Past Family History Brother(s) Family Medical History: Cancer Additional Family Medical History / Comment(s): COLON CANCER Medications and Allergies Home Medications Medication Instructions Recorded Confirmed Type ALPRAZolam [Xanax] 0.5 mg PO BID PRN 10/14/16 10/12/19 History Ergocalciferol (Vitamin D2) 50,000 unit PO WEFR 10/14/16 10/12/19 History [Vitamin D2] Hydrochlorothiazide [Hydrodiuril] 25 mg PO DAILY 10/14/16 10/12/19 History Montelukast [Singulair] 10 mg PO HS 06/12/17 10/12/19 History Albuterol Inhaler [Ventolin Hfa 1 - 2 puff INHALATION DIRECTED 08/31/19 10/12/19 History Inhaler] PRN Spironolactone [Aldactone] 50 mg PO QAM 08/31/19 10/12/19 History Spironolactone [Aldactone] 100 mg PO HS 08/31/19 10/12/19 History Vitamin E Tab 180 mg PO HS 08/31/19 10/12/19 History rOPINIRole HCL [Requip] 0.25 mg PO HS 08/31/19 10/12/19 History Acetaminophen Oral Susp [Tylenol 500 mg PO Q4-6H PRN #400 ml 09/02/19 10/12/19 Rx Oral Susp] Omeprazole 40 mg PO DAILY #30 capsule. 09/02/19 10/12/19 Rx Biotin 5 mg PO DAILY 10/12/19 10/12/19 History Allergies Allergy/AdvReac Type Severity Reaction Status Date / Time No Known Allergies Allergy Verified 10/12/19 11:43
[~2019-10-14] MED LIST changes: +ACETAMINOPHEN TAB 500 MG TAB PO STA; +CITRIC ACID-SODIUM CITRATE 15 ML CUP PO ONE; +DEXAMETHASONE SOD PHOSPHATE 10 MG/ML 1 ML VIAL IV ONE; +GABAPENTIN 300 MG CAP PO STA; +GLYCOPYRROLATE 0.2 MG/ML 2 ML VIAL ONE; +HEPARIN SODIUM,PORCINE 5,000 UNIT/ML 1 ML VIAL SQ ONE; +HYDROcodone/APAP 7.5-325MG 1 EACH TAB PO ONE; +HYDROmorphone 0.5 MG/0.5 ML SYRINGE IVP PRN; +INDOCYANINE GREEN 25 MG VIAL IV STA; +LEVOFLOXACIN 500MG-D5W PMX 500 MG in DEXTROSE/WATER 1 100ML.BAG IVPB SCH; +LIDOCAINE 1% 20 ML VIAL (10MG/ML) FOR IV START INTRADERMA ONE; +LIDOCAINE 1% INJ 10MG/ML (20 ML MDV) ONE; +LIDOCAINE 2%-EPI 1:100,000 20 ML VIAL SQ ONE; +METOCLOPRAMIDE 5 MG/ML 2 ML VIAL IVP ONE; +MIDAZOLAM 2 MG/2 ML VIAL IV PRN; +MIDAZOLAM 2 MG/2 ML VIAL ONE; +NEOSTIGMINE 1 MG/ML 10 ML VIAL ONE; +ONDANSETRON 4 MG/2 ML VIAL IVP ONE; +PROPOFOL 10 MG/ML 20 ML VIAL IV ONE; +ROCURONIUM BROMIDE 10 MG/ML 10 ML VIAL IV ONE; +SCOPOLAMINE 1.5MG/72HR PATCH TRANSDERM ONE; +SCOPOLAMINE 1.5MG/72HR PATCH TRANSDERM STA; +SIMETHICONE 80 MG CHEWABLE PO ONE; +SIMETHICONE 80 MG CHEWABLE PO SCH; +SUCCINYLCHOLINE CHLORIDE 100 MG/5 ML SYR IV ONE; +fentaNYL (PF) 50 MCG/ML 2 ML AMP ONE
[2019-10-14 12:11] LABS: ALT 38 U/L (4-34); AST 29 U/L (14-36); African American GFR (CKD) >90 (>60 ml/min/1.73 sqM); Albumin 5.3 g/dL (3.5-5.0); Alkaline Phosphatase 93 U/L (38-126); Anion Gap 14 mmol/L; Blood Urea Nitrogen 22 mg/dL (7-17); Calcium 10.7 mg/dL (8.4-10.2); Carbon Dioxide 23 mmol/L (22-30); Chloride 101 mmol/L (98-107); Glucose 96 mg/dL (74-99); Non-African American GFR(CKD) >90 (>60 ml/min/1.73 sqM); Potassium 4.7 mmol/L (3.5-5.1); Sodium 138 mmol/L (137-145); Total Bilirubin 1.4 mg/dL (0.2-1.3); Total Protein 8.8 g/dL (6.3-8.2)
[2019-10-14 12:22] LABS: Basophils % (A) 0 %; Eosinophils # (A) 0.1 k/uL (0-0.7); Eosinophils % (A) 0 %; HCT 43.8 % (34.0-46.0); Lymphocytes # (A) 2.1 k/uL (1.0-4.8); Lymphocytes % (A) 18 %; MCH 31.2 pg (25.0-35.0); Mean Platelet Volume 7.6; Monocytes # (A) 0.7 k/uL (0-1.0); Monocytes % (A) 6 %; Neutrophils # (A) 8.9 k/uL (1.3-7.7); Neutrophils % (A) 75 %; Platelet Count 283 k/uL (150-450); RBC 4.78 m/uL (3.80-5.40); RDW 12.5 % (11.5-15.5); WBC 11.9 k/uL (3.8-10.6)
[2019-10-14 12:36] LABS: HGB 14.9 gm/dL (11.4-16.0)
[2019-10-14 12:37] LABS: MCV 91.7 fL (80.0-100.0)
--- NOTE | 2019-10-14 14:48 | P.OP ---
Date of Procedure: 10/14/19 Description of Procedure: SURGEON: NIKI KUMAR MD PREOPERATIVE DIAGNOSES: 1. Symptomatic gallstones 2. Chronic cholecystitis 3. Hypertensive heart disease 4. Gastroesophageal reflux disease 5. Obesity due to excess calories, BMI 31.1 6. Chronic obstructive pulmonary disease 7. Generalized anxiety disorder POSTOPERATIVE DIAGNOSES: 1. Symptomatic gallstones 2. Chronic cholecystitis 3. Hypertensive heart disease 4. Gastroesophageal reflux disease 5. Obesity due to excess calories, BMI 31.1 6. Chronic obstructive pulmonary disease 7. Generalized anxiety disorder OPERATION: Robotic-assisted da Derek Xi laparoscopic cholecystectomy, multiport with FIREFLY ESTIMATED BLOOD LOSS: 5 mL. SPECIMENS REMOVED: Gallbladder. COMPLICATIONS: None. OPERATIVE FINDINGS: 1. Chronic cholecystitis 2. Console time 14 minutes INDICATIONS: The patient is a 49-year-old female who presents with cholelcystitis. Surgical intervention with a laparoscopic cholecystectomy was described at length including injury to the biliary tree, bleeding, infection, need for further surgery. Informed consent was obtained. Robotic assisted laparoscopic approach was described. Benefits and risks of the procedure including but not limited to bleeding, infection, injury to the biliary tree was described. Informed consent was obtained. DESCRIPTION OF PROCEDURE: Patient was brought to the operating room, placed in supine position. After general induction, the abdomen had been prepped and draped in standard sterile fashion. The robotic da Derek XI system was primed. After a timeout protocol was performed, the patient had been prepped and draped in standard sterile fashion. The patient was injected with indocyanine green. A 5 mm 0 degrees laparoscopic trocar entry was performed along the left upper quadrant. The abdomen insufflated to 15 mmHg pressure which was tolerated well. Diagnostic laparoscopy demonstrated no injury to bowel viscera or mesentery. The liver surface was unremarkable. Next, two 8 mm robotic ports were placed along the right upper abdomen. The camera 8-mm port was maintained along the epigastrium. Another 8 mm port was placed along the left upper abdominal wall after exchanging the 5 mm port. Please note that the ports were placed at least 10 to 15 cm away from the target anatomy of the gallbladder. The robot was docked along the left lateral abdomen. The patient was repositioned in reverse Trendelenburg position. Using a grasper for arm 3, a grasper for arm 4, including hook cautery for arm 1, the robotic system was docked and primed as described. Instruments were interchanged by the press assistant and feeder including hook cautery, Bovie cautery and clip appliers. I had sat at the console. The gallbladder fundus was retracted over the dome of the liver. Initial attention was brought to the infundibulum which was gently retracted in the inferior lateral approach. Using a grasper, the cystic duct including the cystic artery was carefully skeletonized. FIREFLY was used to identify the cystic artery and cystic structures. A critical view of safety was obtained. Large PLASTIC clips were used throughout the entire case. Using a clip assembler chassis 2 clips were placed proximally, and 1 clip was placed between the infundibulum and cystic duct and divided using cautery. Next, the cystic artery was similarly clipped and cauterized. Electro-Bovie cautery was used to remove the gallbladder from the hepatic fossa. Hemostasis was checked and found to be adequate. The robot was undocked. I re-scrubbed into the case. Using a 10 mm Endo Catch bag via the left upper quadrant incision, the specimen was removed from the abdominal cavity. All pneumoperitoneum instruments were evacuated from the abdominal cavity. The incisions were reapproximated using 4-0 Monocryl in an interrupted subcuticular fashion. Fascial defects were less than 8 mm in size. Please note along the trocar sites, local anesthetic was placed as a field block prior to insertion of all instruments. Liquid glue was applied to the skin. At the end of the procedure needle, sponge, and instrument count had been verified correct by the biofuels processing technician. The patient was transferred to postanesthesia care unit in stable condition. Intraoperative films were shared with the patient's family who were very pleased with the level of care. Plan - Discharge Summary Discharge Rx Participant: No New Discharge Prescriptions: New Naproxen 500 mg PO Q12HR PRN #30 tablet PRN Reason: Pain Continue Hydrochlorothiazide [Hydrodiuril] 25 mg PO DAILY Ergocalciferol (Vitamin D2) [Vitamin D2] 50,000 unit PO WEFR ALPRAZolam [Xanax] 0.5 mg PO BID PRN PRN Reason: Anxiety Montelukast [Singulair] 10 mg PO HS rOPINIRole HCL [Requip] 0.25 mg PO HS Spironolactone [Aldactone] 100 mg PO HS Spironolactone [Aldactone] 50 mg PO QAM Vitamin E Tab 180 mg PO HS Albuterol Inhaler [Ventolin Hfa Inhaler] 1 - 2 puff INHALATION DIRECTED PRN PRN Reason: Shortness Of Breath Omeprazole 40 mg PO DAILY #30 capsule. Acetaminophen Oral Susp [Tylenol] 500 mg PO Q4-6H PRN #400 ml PRN Reason: Pain Biotin 5 mg PO DAILY Discharge Medication List ALPRAZolam [Xanax] 0.5 mg PO BID PRN 10/14/16 [History] Ergocalciferol (Vitamin D2) [Vitamin D2] 50,000 unit PO WEFR 10/14/16 [History] Hydrochlorothiazide [Hydrodiuril] 25 mg PO DAILY 10/14/16 [History] Montelukast [Singulair] 10 mg PO HS 06/12/17 [History] Albuterol Inhaler [Ventolin Hfa Inhaler] 1 - 2 puff INHALATION DIRECTED PRN 08/31/19 [History] Spironolactone [Aldactone] 50 mg PO QAM 08/31/19 [History] Spironolactone [Aldactone] 100 mg PO HS 08/31/19 [History] Vitamin E Tab 180 mg PO HS 08/31/19 [History] rOPINIRole HCL [Requip] 0.25 mg PO HS 08/31/19 [History] Acetaminophen Oral Susp [Tylenol] 500 mg PO Q4-6H PRN #400 ml 09/02/19 [Rx] Omeprazole 40 mg PO DAILY #30 capsule. 09/02/19 [Rx] Biotin 5 mg PO DAILY 10/12/19 [History] Naproxen 500 mg PO Q12HR PRN #30 tablet 10/14/19 [Rx] Follow up Appointment(s)/Referral(s): Niki Kumar MD [STAFF PHYSICIAN] - 10/18/19 Patient Instructions/Handouts: Laparoscopic Cholecystectomy (DC) Activity/Diet/Wound Care/Special Instructions: No lifting over 10 pounds in 2 weeks until Oct 28. May shower. No bath tub soaks for two weeks until Oct 28 Diet as tolerated. No driving while on narcotics. Use Tylenol and ibuprofen or Aleve scheduled for the next 24-48 hours for best pain relief. Use ice along incisions for the today to prevent swelling. Discharge Disposition: HOME SELF-CARE
[2019-10-14 14:56] VITALS: TEMP 99.6
[2019-10-14 16:06] VITALS: RESP 17
[2019-10-14 16:26] VITALS: BP 137/82; PULSE 95
== END | disposition home or self-care (01) ==
LOC: OR 10:50
PROVIDERS: ATTEND Surgery Plastic and Reconstructive Surgery
DX: K80.10 Calculus of gallbladder with chronic cholecystitis without obstruction (principal); J45.909 Unspecified asthma, uncomplicated; K21.9 Gastro-esophageal reflux disease without esophagitis; G47.30 Sleep apnea, unspecified; H40.20X0 Unspecified primary angle-closure glaucoma, stage unspecified; Z86.19 Personal history of other infectious and parasitic diseases; Z98.84 Bariatric surgery status; Z90.710 Acquired absence of both cervix and uterus; Z80.0 Family history of malignant neoplasm of digestive organs; Z79.899 Other long term (current) drug therapy; I11.9 Hypertensive heart disease without heart failure; E66.9 Obesity, unspecified; Z68.31 Body mass index [BMI] 31.0-31.9, adult; J44.9 Chronic obstructive pulmonary disease, unspecified; F41.1 Generalized anxiety disorder
CPT/HCPCS: 80053; 85025; 47562; J2250; J1644; J1100; J2710; J2765; J0690; J2405; J0696; J2001; J3010; J0330; J2704; J1170; 88304

== ENCOUNTER → 2019-10-20 | Outpatient (CLI) | payer OTHER ==
[~2019-10-20] MED LIST changes: -ACETAMINOPHEN TAB 500 MG TAB PO STA; -CITRIC ACID-SODIUM CITRATE 15 ML CUP PO ONE; -DEXAMETHASONE SOD PHOSPHATE 10 MG/ML 1 ML VIAL IV ONE; -GABAPENTIN 300 MG CAP PO STA; -GLYCOPYRROLATE 0.2 MG/ML 2 ML VIAL ONE; -HEPARIN SODIUM,PORCINE 5,000 UNIT/ML 1 ML VIAL SQ ONE; -HYDROcodone/APAP 7.5-325MG 1 EACH TAB PO ONE; -HYDROmorphone 0.5 MG/0.5 ML SYRINGE IVP PRN; -INDOCYANINE GREEN 25 MG VIAL IV STA; -LACTATED RINGERS 1,000 ML IV SCH; -LEVOFLOXACIN 500MG-D5W PMX 500 MG in DEXTROSE/WATER 1 100ML.BAG IVPB SCH; -LIDOCAINE 1% 20 ML VIAL (10MG/ML) FOR IV START INTRADERMA ONE; -LIDOCAINE 1% INJ 10MG/ML (20 ML MDV) ONE; -LIDOCAINE 2%-EPI 1:100,000 20 ML VIAL SQ ONE; -METOCLOPRAMIDE 5 MG/ML 2 ML VIAL IVP ONE; -MIDAZOLAM 2 MG/2 ML VIAL IV PRN; -MIDAZOLAM 2 MG/2 ML VIAL ONE; -NEOSTIGMINE 1 MG/ML 10 ML VIAL ONE; -ONDANSETRON 4 MG/2 ML VIAL IVP ONE; -PROPOFOL 10 MG/ML 20 ML VIAL IV ONE; -ROCURONIUM BROMIDE 10 MG/ML 10 ML VIAL IV ONE; -SCOPOLAMINE 1.5MG/72HR PATCH TRANSDERM ONE; -SCOPOLAMINE 1.5MG/72HR PATCH TRANSDERM STA; -SIMETHICONE 80 MG CHEWABLE PO ONE; -SIMETHICONE 80 MG CHEWABLE PO SCH; +SODIUM CHLORIDE 0.9% 500 ML 500 ML in EMPTY BAG 1 BAG IV PRN; -SUCCINYLCHOLINE CHLORIDE 100 MG/5 ML SYR IV ONE; -fentaNYL (PF) 50 MCG/ML 2 ML AMP ONE
[2019-10-20 08:12] VITALS: BP 129/95; PULSE 80; RESP 18
[2019-10-20] MEDS: SODIUM CHLORIDE 0.9% 1,000 ML IV NR ×2 (08:15→09:24)
== END | disposition home or self-care (01) ==
LOC: PROCWHC3 07:46
PROVIDERS: ATTEND Surgery Plastic and Reconstructive Surgery
DX: E86.0 Dehydration (principal)
CPT/HCPCS: 96360; 96361

== ENCOUNTER → 2019-10-26 | Outpatient (CLI) | payer OTHER ==
[2019-10-26 16:25] VITALS: BP 131/87; PULSE 80; RESP 16; TEMP 98.2; BMI 32.8
--- NOTE | 2019-10-26 17:32 | P.HPBAR ---
Bariatric H&P - History & Physicial H&P Date: 10/26/19 History & Physicial: Visit/CC: initial Patient initial contact: Initial weight: 88.224 kg Initial weight in pounds: 194.50 Height: 5 ft 4.5 in Initial BMI: 32.8 Last weight: Current weight: 87.997 kg Current weight in pounds: 194.00 Current BMI: 32.8 [place] body weight (based on NIH guidelines): 55.565 kg Excess body weight loss: 0.6% The patient is a 49 year-old F who presents for Bariatric Assessment. HPI: Highest weight 238 pounds. Lost 12 pounds in 2 months recently. Height 5 foot 4.5 inches. Has family history with brothers with weight. She has friend who had weight loss surgery. She comes in with panniculitis. She has panniculitis on going for 3 years. Pannus over 6-cm long. BMI 32.8. Continue weight loss in the interim. Reflux is now. Nystatin powder advised. PLAN: 1. Continue weight loss. Past Medical History Past Medical History: Asthma, Eye Disorder, GERD/Reflux, Hypertension, Sleep Apnea/CPAP/BIPAP Additional Past Medical History / Comment(s): migraines, bilateral NARROW LENS GLAUCOMA. DOES NOT USE CPAP, RLS, alopecia (takes Spironolactone daily) History of Any Multi-Drug Resistant Organisms: None Reported Past Surgical History: Breast Surgery, Cholecystectomy, Hernia Repair, Hysterectomy Additional Past Surgical History / Comment(s): narendra breast reduction, NARENDRA eye laser surgery, COLONOSCOPY, ALEXIS PROCEDURE, hiatal hernia repair, total hysterectomy and bilateral oopherectomy Past Anesthesia/Blood Transfusion Reactions: Previous Problems w/ Anesthesia, Motion Sickness, Postoperative Nausea & Vomiting (PONV) Additional Past Anesthesia/Blood Transfusion Reaction / Comm: aspiration while under anesthesia for colonoscopy. *No blood transfusion to date Past Psychological History: Anxiety, Depression, Panic Disorder Additional Psychological History / Comment(s): Takes Xanax 0.5mg BID prn Smoking Status: Never smoker Past Alcohol Use History: Rare Past Drug Use History: None Reported - Past Family History Brother(s) Family Medical History: Cancer Additional Family Medical History / Comment(s): COLON CANCER Surgical - Exam Vital Signs Temp Pulse Resp BP 98.2 F 80 16 131/87 10/26/19 16:23 10/26/19 16:23 10/26/19 16:23 10/26/19 16:23 Bariatric Checklist Checklist: Plan: Checklist: EGD: 1. Hiatal hernia: 2. H. Pylori: HgbA1c: Vitamin D: Smoking: Never smoker Primary care physician referral: ELVIRA Psychiatry clearance: Cardiology clearance: Sleep study: Diet journal: VTE risk score: VTE risk level: Rehab needs at discharge:
== END | disposition home or self-care (01) ==
LOC: BARWHC3 15:48
PROVIDERS: ATTEND Surgery Plastic and Reconstructive Surgery
DX: M79.3 Panniculitis, unspecified (principal); K21.9 Gastro-esophageal reflux disease without esophagitis; Z90.49 Acquired absence of other specified parts of digestive tract; Z79.899 Other long term (current) drug therapy
CPT/HCPCS: 99211

== ENCOUNTER → 2020-02-29 | Outpatient (CLI) | payer OTHER ==
[2020-02-29 12:55] LABS: Amylase 17 U/L (23-121)
== END | disposition home or self-care (01) ==
LOC: LABWHC1 07:10
PROVIDERS: ATTEND Physician Assistant
DX: R10.13 Epigastric pain (principal); Z80.0 Family history of malignant neoplasm of digestive organs
CPT/HCPCS: 36415; 82150; 83690; 86301

== ENCOUNTER 2020-03-24 10:01 | Emergency (ER) | payer OTHER ==
[2020-03-24] MEDS ORDERED: MORPHINE SULFATE 4 MG/ML SYRINGE IVP STA (10:19)
[2020-03-24] MEDS ORDERED: DIAZEPAM 5 MG/ML 2 ML INJ IVP STA (10:19)
--- NOTE | 2020-03-24 10:21 | ED ---
General Adult HPI - General Chief complaint: Fall Stated complaint: Fall,hip/abd pain Time Seen by Provider: 03/24/20 10:12 Source: patient, RN notes reviewed, old records reviewed Mode of arrival: wheelchair Limitations: physical limitation - History of Present Illness Initial comments: 49-year-old female presents status post fall with right low back pain and abdominal pain. Fall occurred 3 days ago and she was seen at an outside emergency department. She had x-rays of the lumbar spine which were reported as negative by the patient. She was given Toradol and [place] but has had persistent pain in the low back on the right side and right lower quadrant abdominal pain. Pain is severe. No dysuria or hematuria. No vomiting or diarrhea. No focal numbness or weakness. - Related Data Home Medications Medication Instructions Recorded Confirmed ALPRAZolam [Xanax] 0.5 mg PO BID PRN 10/14/16 10/26/19 Ergocalciferol (Vitamin D2) 50,000 unit PO WEFR 10/14/16 10/26/19 [Vitamin D2] Hydrochlorothiazide [Hydrodiuril] 25 mg PO DAILY 10/14/16 10/26/19 Montelukast [Singulair] 10 mg PO HS 06/12/17 10/26/19 Albuterol Inhaler (Mhu) [Ventolin 1 - 2 puff INHALATION DIRECTED 08/31/19 10/26/19 Hfa Inhaler (Mhu)] PRN Spironolactone [Aldactone] 50 mg PO QAM 08/31/19 10/26/19 Spironolactone [Aldactone] 100 mg PO HS 08/31/19 10/26/19 Vitamin E Tab 180 mg PO HS 08/31/19 10/26/19 rOPINIRole HCL [Requip] 0.25 mg PO HS 08/31/19 10/26/19 Biotin 5 mg PO DAILY 10/12/19 10/26/19 Previous Rx's Medication Instructions Recorded Acetaminophen Oral Susp [Tylenol] 500 mg PO Q4-6H PRN #400 ml 09/02/19 Omeprazole 40 mg PO DAILY #30 capsule. 09/02/19 Naproxen 500 mg PO Q12HR PRN #30 tablet 10/14/19 Cyclobenzaprine [Flexeril] 5 mg PO TID PRN 3 Days #9 tablet 03/24/20 HYDROcodone/APAP 5-325MG [[place] 1 tab PO Q6HR PRN #12 tab 03/24/20 5-325] Ibuprofen [Motrin] 600 mg PO Q8HR PRN #24 tab 03/24/20 Allergies Allergy/AdvReac Type Severity Reaction Status Date / Time No Known Allergies Allergy Verified 03/24/20 10:08 Review of Systems ROS Statement: Those systems with pertinent positive or pertinent negative responses have been documented in the HPI. ROS Other: All systems not noted in ROS Statement are negative. Past Medical History Past Medical History: Asthma, Eye Disorder, GERD/Reflux, Hypertension, Sleep Apnea/CPAP/BIPAP Additional Past Medical History / Comment(s): migraines, bilateral NARROW LENS GLAUCOMA. DOES NOT USE CPAP, RLS, alopecia (takes Spironolactone daily) History of Any Multi-Drug Resistant Organisms: None Reported Past Surgical History: Breast Surgery, Cholecystectomy, Hernia Repair, Hysterectomy Additional Past Surgical History / Comment(s): narendra breast reduction, NARENDRA eye las er surgery, COLONOSCOPY, ALEXIS PROCEDURE, hiatal hernia repair, total hysterectomy and bilateral oopherectomy Past Anesthesia/Blood Transfusion Reactions: Previous Problems w/ Anesthesia, Motion Sickness, Postoperative Nausea & Vomiting (PONV) Additional Past Anesthesia/Blood Transfusion Reaction / Comment(s): aspiration while under anesthesia for colonoscopy. *No blood transfusion to date Past Psychological History: Anxiety, Depression, Panic Disorder Smoking Status: Never smoker Past Alcohol Use History: Occasional Past Drug Use History: None Reported - Past Family History Brother(s) Family Medical History: Cancer Additional Family Medical History / Comment(s): COLON CANCER General Exam Limitations: physical limitation General appearance: alert, in no apparent distress Head exam: Present: atraumatic, normocephalic Eye exam: Present: normal appearance, PERRL ENT exam: Present: normal exam Neck exam: Present: normal inspection. Absent: tenderness, meningismus Respiratory exam: Present: normal lung sounds bilaterally. Absent: respiratory distress Cardiovascular Exam: Present: regular rate, normal rhythm GI/Abdominal exam: Present: soft, tenderness (Right lower quadrant abdominal pain). Absent: distended Extremities exam: Present: normal inspection, full ROM Back exam: Present: tenderness, paraspinal tenderness (Right), other (Ecchymosis in the right paraspinal lumbar region). Absent: vertebral tenderness Neurological exam: Present: alert, oriented X3, CN II-XII intact. Absent: motor sensory deficit Psychiatric exam: Present: normal affect, normal mood Skin exam: Present: warm, dry, intact Course Vital Signs 03/24/20 10:04 Temperature 98.8 F Pulse Rate 69 Respiratory 18 Rate Blood Pressure 132/81 O2 Sat by Pulse 96 Oximetry Medical Decision Making - Medical Decision Making 49-year-old female with back pain status post fall presenting for reevaluation. She does have some flank and low back and ecchymosis and tenderness. She has good strength in the lower extremities, no alarming features on history or physical exam. CT is performed of the lumbar spine as well as the abdomen and pelvis with IV contrast. There is no acute traumatic injury. She has a mild enteritis which they be contributing to her abdominal pain but is not her chief pain complaint. She is feeling much better, somewhat sleepy but pain-free on reevaluation. She will be given a refill of her pain medication and muscle relaxer. She will follow-up with her primary care physician. - Lab Data Result diagrams: 03/24/20 10:29 03/24/20 10:29 Lab Results 03/24/20 03/24/20 03/24/20 Range/Units 10:29 10:29 10:29 WBC 5.6 (3.8-10.6) k/uL RBC 4.27 (3.80-5.40) m/uL Hgb 13.9 (11.4-16.0) gm/dL Hct 40.6 (34.0-46.0) % MCV 95.2 (80.0-100.0) fL MCH 32.6 (25.0-35.0) pg MCHC 34.2 (31.0-37.0) g/dL RDW 12.7 (11.5-15.5) % Plt Count 176 (150-450) k/uL Neutrophils % 67 % Lymphocytes % 23 % Monocytes % 5 % Eosinophils % 2 % Basophils % 0 % Neutrophils # 3.8 (1.3-7.7) k/uL Lymphocytes # 1.3 (1.0-4.8) k/uL Monocytes # 0.3 (0-1.0) k/uL Eosinophils # 0.1 (0-0.7) k/uL Basophils # 0.0 (0-0.2) k/uL PT 9.4 (9.0-12.0) sec INR 0.9 (<1.2) APTT 22.3 (22.0-30.0) sec Sodium 139 (137-145) mmol/L Potassium 4.7 (3.5-5.1) mmol/L Chloride 107 (98-107) mmol/L Carbon Dioxide 23 (22-30) mmol/L Anion Gap 9 mmol/L BUN 19 H (7-17) mg/dL Creatinine 0.68 (0.52-1.04) mg/dL Est GFR (CKD-EPI)AfAm >90 (>60 ml/min/1.73 sqM) Est GFR (CKD-EPI)NonAf >90 (>60 ml/min/1.73 sqM) Glucose 94 (74-99) mg/dL Calcium 9.5 (8.4-10.2) mg/dL Disposition Clinical Impression: Fall, Lumbar contusion Disposition: HOME SELF-CARE Condition: Good Instructions (If sedation given, give patient instructions): Lower Back Exercises (ED), Acute Low Back Pain (ED), Contusion in Adults (ED) Prescriptions: Cyclobenzaprine [Flexeril] 5 mg PO TID PRN 3 Days #9 tablet PRN Reason: Muscle Spasm Ibuprofen [Motrin] 600 mg PO Q8HR PRN #24 tab PRN Reason: Pain HYDROcodone/APAP 5-325MG [[place] 5-325] 1 tab PO Q6HR PRN #12 tab PRN Reason: Pain Is patient prescribed a controlled substance at d/c from ED?: No Referrals: Tara Valencia DO [Primary Care Provider] - 1-2 days
[2020-03-24 10:44] LABS: Basophils % (A) 0 %; Eosinophils # (A) 0.1 k/uL (0-0.7); Eosinophils % (A) 2 %; HCT 40.6 % (34.0-46.0); HGB 13.9 gm/dL (11.4-16.0); Lymphocytes # (A) 1.3 k/uL (1.0-4.8); Lymphocytes % (A) 23 %; MCH 32.6 pg (25.0-35.0); MCHC 34.2 g/dL (31.0-37.0); MCV 95.2 fL (80.0-100.0); Mean Platelet Volume 7.4; Monocytes # (A) 0.3 k/uL (0-1.0); Monocytes % (A) 5 %; Neutrophils # (A) 3.8 k/uL (1.3-7.7); Neutrophils % (A) 67 %; Platelet Count 176 k/uL (150-450); RBC 4.27 m/uL (3.80-5.40); RDW 12.7 % (11.5-15.5); WBC 5.6 k/uL (3.8-10.6)
[2020-03-24 10:56] LABS: African American GFR (CKD) >90 (>60 ml/min/1.73 sqM); Anion Gap 9 mmol/L; Blood Urea Nitrogen 19 mg/dL (7-17); Calcium 9.5 mg/dL (8.4-10.2); Carbon Dioxide 23 mmol/L (22-30); Chloride 107 mmol/L (98-107); Glucose 94 mg/dL (74-99); Non-African American GFR(CKD) >90 (>60 ml/min/1.73 sqM); Potassium 4.7 mmol/L (3.5-5.1); Sodium 139 mmol/L (137-145)
[2020-03-24 11:01] LABS: INR 0.9 (<1.2); Partial Thromboplastin Time 22.3 sec (22.0-30.0); Prothrombin Time 9.4 sec (9.0-12.0)
--- NOTE | 2020-03-24 11:21 | CT ---
EXAMINATION TYPE: CT abdomen pelvis w con DATE OF EXAM: 03/24/2020 COMPARISON: None HISTORY: Right flank pain, RLQ pain CT DLP: 3144.4 mGycm CONTRAST: CT scan of the abdomen and pelvis is performed without Oral Contrast and with IV Contrast, patient in jected with 100 mL of Isovue 300. FINDINGS: LUNG BASES-: No visible nodule. No infiltrate. Chronic elevation right hemidiaphragm. LIVER/GB: No calcified gallstones. No space occupying hepatic lesion. Biliary tree is of normal ca liber. PANCREAS: No inflammation. No distinct mass. SPLEEN: No splenic enlargement. No lesion seen. ADRENALS: No nodule. No thickening. KIDNEYS/BLADDER: No hydronephrosis. No nephrolithiasis. No distinct renal mass. Urinary bladder g rossly unremarkable. BOWEL: Normal appendix. Mild fluid-filled distention of small bowel loops may reflect enteritis. Wall thickening of the ileum may reflect ileitis. The remainder of the colon and small bowel are of lucy l caliber. No free air or abscess seen. Mild sigmoid diverticulosis. GENITAL ORGANS: No gross abnormality. LYMPH NODES: No greater than 1cm abdominal or pelvic lymph nodes are appreciated. AORTA: No significant abnormality. OSSEOUS STRUCTURES: No significant abnormality is seen. OTHER: No significant additional abnormality is seen. IMPRESSION: 1. Correlate for small bowel enteritis with suspected ileitis.
--- NOTE | 2020-03-24 11:24 | CT ---
EXAMINATION TYPE: CT lumbar spine w con DATE OF EXAM: 03/24/2020 COMPARISON: None HISTORY: Right low back pain post fall CT DLP: 3144.4 mGycm CONTRAST: Unenhanced CT of the lumbar spine is performed with IV Contrast, patient injected with 100 mL of Isov ue 300. Unenhanced CT of the lumbar spine was performed. Bone and soft tissue window settings are submitted as well as coronal and sagittal reconstructions. L1-L2: Normal disc space height. No disc herniation protrusion or central stenosis. No facet joint arthropathy. No evidence for foraminal encroachment. L2-L3: Normal disc space height. No disc herniation protrusion or central stenosis. No facet joint arthropathy. No evidence for foraminal encroachment. L3-L4: Mild degenerative disc space narrowing with posterior disc bulge. Mild effacement ventral thec al sac. No herniation or central stenosis. L4-L5: Mild degenerative disc space narrowing with posterior disc bulge. Mild effacement ventral thec al sac. No herniation or central stenosis. L5-S1: Normal disc space height. No disc herniation protrusion or central stenosis. No facet joint arthropathy. No evidence for foraminal encroachment. No paraspinal masses are identified. Lumbar segments are free if fracture. IMPRESSION: 1. Degenerative disc disease with disc bulging as outlined above.
[2020-03-24 12:03] VITALS: BP 118/74; PULSE 66; RESP 16; TEMP 98
== END 2020-03-24 12:03 | disposition home or self-care (01) ==
LOC: EC 10:01
DX: S30.0XXA Contusion of lower back and pelvis, initial encounter (principal); K52.9 Noninfective gastroenteritis and colitis, unspecified; F41.0 Panic disorder [episodic paroxysmal anxiety]; F32.9 Major depressive disorder, single episode, unspecified; J45.909 Unspecified asthma, uncomplicated; I10 Essential (primary) hypertension; G47.30 Sleep apnea, unspecified; Z99.89 Dependence on other enabling machines and devices; W19.XXXA Unspecified fall, initial encounter
CPT/HCPCS: 36415; 80048; 85025; 85610; 85730; 72132; 74177; 99284; 96374; 96375; J2270; J3360; Q9967

== ENCOUNTER → 2020-09-29 | Outpatient (CLI) | payer OTHER ==
--- NOTE | 2020-09-30 15:57 | MR ---
EXAMINATION TYPE: MR lumbar spine wo con DATE OF EXAM: 09/29/2020 COMPARISON: CT lumbar spine 03/24/2020 HISTORY: Low back pain since February, fell on back. TECHNIQUE: Multiplanar, multisequence images of the lumbar spine were acquired. L1-L2: Schmorl's node present at superior endplate of L1. Posterior extension endplate disc complex c auses mild anterior mass effect on the thecal sac. L2-L3: Posterior broad-based disc bulge causes slight anterior mass effect on the thecal sac. L3-L4: Posterior broad-based disc bulge causes slight anterior mass effect on the thecal sac. There i s some hypertrophy ligamentum flavum causing some posterior lateral mass effect on the thecal sac L4-L5: Posterior broad-based disc bulge causes mild anterior mass effect on the thecal sac. There is some facet arthropathy with hypertrophy of ligamentum flavum causing posterior lateral mass effect on the thecal sac. L5-S1: There is facet arthropathy change present. Posterior broad-based disc bulge causes contact wit h the anterior thecal sac, proximal S1 nerve roots Lumbar segments are intact. No paraspinal masses are identified. Conus medullaris has a normal appe arance. There is no significant spinal stenosis. Multilevel spondylosis is present with endplate disc ogenic marrow signal change. No significant foraminal encroachment. Loss of disc height signal is pre sent L5-S1, L2-3, L1 to greater than L3-4. There is a mild spinal curvature. Circumaortic left renal vein is noted incidentally. IMPRESSION: Degenerative disc disease, facet arthropathy. No significant spinal stenosis. Slight spinal curvature .
== END | disposition home or self-care (01) ==
LOC: RADMRIMAIN 09:15
PROVIDERS: ATTEND Family Medicine
DX: M51.36 Other intervertebral disc degeneration, lumbar region (principal); M47.816 Spondylosis without myelopathy or radiculopathy, lumbar region; M43.8X6 Other specified deforming dorsopathies, lumbar region
CPT/HCPCS: 72148

== ENCOUNTER → 2020-11-07 | Outpatient (CLI) | payer OTHER ==
[2020-11-07 16:02] VITALS: BP 139/85; PULSE 93; RESP 16; TEMP 98.2; BMI 36.1
--- NOTE | 2020-11-07 16:34 | P.PN ---
Subjective Progress Note Date: 11/07/20 DATE OF SERVICE: 11/07/2020 REASON FOR CONSULTATION: Bariatric evaluation HISTORY OF PRESENT ILLNESS: Mini Hilton is a 50-year-old female who comes with morbid obesity. She has gained weight in the last year over 20 pounds. She comes in with severe gastroesophageal reflux disease. She comes in looking into the sleeve gastrectomy for weight loss. As a result of her morbid obesity, she has developed hypertensive heart disease, osteoarthritis of the knees, including sleep apnea. She has seen assisted living assistant for panniculitis. She has family history of morbid obesity. She comes in for consultation for surgical weight loss. She reports history of scar tissue from endometriosis. At height of 5 feet 4.5 inches, her ideal body weight is 144 pounds. Her highest weight was 238 pounds. Her BMI was 40.3. She comes in 214 pounds from 194 pounds, 1 year ago. She has gained 20 pounds. Her body mass index is 36.2. She is 70 pounds overweight. PAST MEDICAL HISTORY: 1. Morbid obesity due to excess calories 2. Body mass index of 40.3, initial 3. Panniculitis 4. Obstructive sleep apnea 5. Gastroesophageal reflux disease 6. Hypertensive heart disease 7. Asthma 8. Migraines 9. Glaucoma 10. Shingles 11. Postop nausea and vomiting 12. Anxiety disorder 13. Osteoarthritis of the knees 14. Endometriosis PAST SURGICAL HISTORY: 1. Cholecystectomy 2. Hiatal hernia repair x 2 3. Hysterectomy 4. Colonoscopy 5. Bayron fundoplasty 6. Bilateral breast reduction HOME MEDICATIONS: Home Medications Medication Instructions Recorded Confirmed ALPRAZolam [Xanax] 0.5 mg PO BID PRN 10/14/16 11/07/20 Ergocalciferol (Vitamin D2) 50,000 unit PO WEFR 10/14/16 11/07/20 [Vitamin D2] hydroCHLOROthiazide [Hydrodiuril] 25 mg PO DAILY 10/14/16 11/07/20 Montelukast [Singulair] 10 mg PO HS 06/12/17 11/07/20 Albuterol Inhaler (Mhu) [Ventolin 1 - 2 puff INHALATION DIRECTED 08/31/19 11/07/20 Hfa Inhaler (Mhu)] PRN Spironolactone [Aldactone] 50 mg PO QAM 08/31/19 11/07/20 Spironolactone [Aldactone] 100 mg PO HS 08/31/19 11/07/20 Vitamin E Tab 180 mg PO HS 08/31/19 11/07/20 rOPINIRole HCL [Requip] 0.25 mg PO HS 08/31/19 11/07/20 Biotin 5 mg PO DAILY 10/12/19 11/07/20 Previous Rx's Medication Instructions Recorded Acetaminophen Oral Susp [Tylenol] 500 mg PO Q4-6H PRN #400 ml 09/02/19 Omeprazole 40 mg PO DAILY #30 capsule. 09/02/19 Naproxen 500 mg PO Q12HR PRN #30 tablet 10/14/19 Cyclobenzaprine [Flexeril] 5 mg PO TID PRN 3 Days #9 tablet 03/24/20 HYDROcodone/APAP 5-325MG [Henning 1 tab PO Q6HR PRN #12 tab 03/24/20 5-325] Ibuprofen [Motrin] 600 mg PO Q8HR PRN #24 tab 03/24/20 ALLERGIES: Allergies Allergy/AdvReac Type Severity Reaction Status Date / Time No Known Allergies Allergy Verified 10/26/19 16:34 SOCIAL HISTORY: Denies past tobacco use. FAMILY HISTORY: No family history of ulcerative colitis disease or Crohn's disease. Family history of morbid obesity. No lupus in the family. No reports of stomach or esophageal cancer. REVIEW OF ORGAN SYSTEMS: CONSTITUTIONAL: At height of 5 feet 4.5 inches, her ideal body weight is 144 pounds. Her highest weight was 238 pounds. Her BMI was 40.3. She comes in 214 pounds from 194 pounds, 1 year ago. She has gained 20 pounds. Her body mass index is 36.2. She is 70 pounds overweight. HEENT: Denies any active troubles with vision or hearing. ENDOCRINE: No diabetes. No hypothyroidism. CARDIOVASCULAR: No reports of palpitations or heart attacks or chest pain. Has hypertensive heart disease. RESPIRATORY: Has daytime somnolence. Has asthma. Has sleep apnea. GASTROINTESTINAL: Denies any bright red blood per rectum. No diarrhea. No constipation. Has gastroesophageal reflux disease. MUSCULOSKELETAL: Has lower back pain and joint pain. Has osteoarthritis of the knees. NEURO: No headaches. No seizure disorders. PSYCH: No suicidal ideation. Has anxiety. RHEUMATOLOGIC: No lupus. No rheumatoid arthritis. HEMATOLOGIC: Denies any abnormal bleeding or bruising. No personal history of DVTs. SKIN: Has panniculitis. No skin cancer. PHYSICAL EXAM: VITAL SIGNS: Height 5 foot 4.5 inches, weight 214 pounds. BMI 36.2 Vital Signs Temp 98.2 F 11/07/20 15:59 Pulse 93 11/07/20 15:59 Resp 16 11/07/20 15:59 BP 139/85 11/07/20 15:59 Pulse Ox GENERAL: Well-developed in no acute distress. HEENT: No scleral icterus. Extraocular movements grossly intact. Hears conversational speech. No nasal drainage. NECK: Supple without lymphadenopathy. CHEST: Nonlabored respirations with equal bilateral excursions. CARDIOVASCULAR: Regular rate and regular rhythm. Distal 2+ pulses. ABDOMEN: Obese, soft, nondistended. MUSCULOSKELETAL: No clubbing, cyanosis. NEURO: No focal or lateralizing signs. Cranial nerves 2 through 12 grossly within normal limits. PSYCH: Appropriate affect. Alert and oriented to person, place and time. SKIN: Good skin turgor. Well perfused. ASSESSMENT: 1. Morbid obesity due to excess calories 2. Body mass index of 40.3, initial to 36.2 3. Panniculitis 4. Obstructive sleep apnea 5. Gastroesophageal reflux disease 6. Hypertensive heart disease 7. Asthma 8. Migraines 9. Glaucoma 10. Shingles 11. Postop nausea and vomiting 12. Anxiety disorder 13. Osteoarthritis of the knees PLAN: 1. Surgical options including a band, gastric bypass, sleeve gastrectomy were described in detail. Alternatives such as gastric balloon including duodenal switch were described. She is looking into the sleeve gastrectomy. 2. The [place] bariat[facility] surgical collaborative data and outcomes calculator were described with surgical options. 3. Recommend a bariatric metabolic panel to evaluate for micro- including macronutrient deficiencies. 4. For history of daytime somnolence, recommend evaluation and treatment for sleep apnea. 5. Dietary surveillance and counseling was reviewed. Increased protein intake over 65 grams daily advised. 6. Will need cardiac risk assessment. 7. Recommend medical risk assessment. 8. Psych assessment per insurance guidelines. 9. Recommend upper endoscopy. 10. Recommend 12-lead EKG. 11. Recommend esophagram 12. She has gained weight with more severe gastroesophageal reflux disease. Recommend gastric bypass for the severity of her reflux. 13. Recommend second opinion if desired for bariatric procedures. Objective - Vital Signs Vital signs: Vital Signs Temp 98.2 F 11/07/20 15:59 Pulse 93 11/07/20 15:59 Resp 16 11/07/20 15:59 BP 139/85 11/07/20 15:59 Pulse Ox Intake & Output 11/06/20 11/07/20 11/07/20 18:59 06:59 18:59 Weight 97.069 kg
== END | disposition home or self-care (01) ==
LOC: BARWHC3 14:58
PROVIDERS: ATTEND Surgery Plastic and Reconstructive Surgery
DX: E66.01 Morbid (severe) obesity due to excess calories (principal); M79.3 Panniculitis, unspecified; G47.33 Obstructive sleep apnea (adult) (pediatric); K21.9 Gastro-esophageal reflux disease without esophagitis; I11.9 Hypertensive heart disease without heart failure; J45.909 Unspecified asthma, uncomplicated; G43.909 Migraine, unspecified, not intractable, without status migrainosus; H40.9 Unspecified glaucoma; F41.9 Anxiety disorder, unspecified; M17.0 Bilateral primary osteoarthritis of knee; R11.2 Nausea with vomiting, unspecified; Z68.36 Body mass index [BMI] 36.0-36.9, adult; Z79.1 Long term (current) use of non-steroidal anti-inflammatories (NSAID); Z79.899 Other long term (current) drug therapy; Z90.49 Acquired absence of other specified parts of digestive tract; Z90.710 Acquired absence of both cervix and uterus
CPT/HCPCS: 99211

== ENCOUNTER → 2021-04-24 | Outpatient (CLI) | payer OTHER ==
--- NOTE | 2021-04-24 10:56 | P.PAINCN ---
History of Present Illness - Reason for Consult Consult date: 04/24/21 - History of Present Illness This is 50 years old female with a chronic history of severe low back pain with radiation to the buttock and hip area started 1 year ago after she fell and she was landed on her back, pain is constant interfered with her ability to walk, she is able to ambulate slowly with pain, she feels some weakness in her lower extremity, denies any fever or night sweats., Denies any change in the bowel movements or urination, she is done round of physical therapy without any benefit she's done chiropractic treatment without any benefit she used NSAIDs without any benefit Past Medical History Past Medical History: Asthma, Eye Disorder, GERD/Reflux, Hypertension, Sleep Apnea/CPAP/BIPAP Additional Past Medical History / Comment(s): Migraines, bilateral NARROW LENS GLAUCOMA. DOES NOT USE CPAP, RLS, alopecia. History of Any Multi-Drug Resistant Organisms: None Reported Past Surgical History: Breast Surgery, Cholecystectomy, Hernia Repair, Hysterectomy Additional Past Surgical History / Comment(s): Bilateral breast reduction, bilateral eye laser surgery, COLONOSCOPY, ALEXIS PROCEDURE, hiatal hernia repair. Past Anesthesia/Blood Transfusion Reactions: Previous Problems w/ Anesthesia, Motion Sickness, Postoperative Nausea & Vomiting (PONV) Additional Past Anesthesia/Blood Transfusion Reaction / Comm: "Aspiration while under anesthesia for colonoscopy.". No blood transfusion to date. Past Psychological History: Anxiety, Depression, Panic Disorder Additional Psychological History / Comment(s): Takes Xanax 0.5mg BID prn Smoking Status: Never smoker Past Alcohol Use History: Occasional Past Drug Use History: None Reported - Past Family History Brother(s) Family Medical History: Cancer Additional Family Medical History / Comment(s): COLON CANCER. Medications and Allergies Home Medications Medication Instructions Recorded Confirmed Type ALPRAZolam [Xanax] 0.5 mg PO BID PRN 10/14/16 04/18/21 History Ergocalciferol (Vitamin D2) 50,000 unit PO FR 10/14/16 04/18/21 History [Vitamin D2] hydroCHLOROthiazide [Hydrodiuril] 25 mg PO DAILY 10/14/16 04/18/21 History Montelukast [Singulair] 10 mg PO HS 06/12/17 04/18/21 History Albuterol Inhaler (Mhu) [Ventolin 1 - 2 puff INHALATION DIRECTED 08/31/19 04/18/21 History Hfa Inhaler (Mhu)] PRN Spironolactone [Aldactone] 50 mg PO QAM 08/31/19 04/18/21 History Spironolactone [Aldactone] 100 mg PO HS 08/31/19 04/18/21 History Vitamin E Tab 180 mg PO HS 08/31/19 04/18/21 History rOPINIRole HCL [Requip] 0.25 mg PO HS 08/31/19 04/18/21 History Omeprazole 40 mg PO DAILY #30 capsule. 09/02/19 04/18/21 Rx Vitamin C/Biotin [Hair, Skin and 1 tab PO DAILY 04/18/21 04/18/21 History Nails] Allergies Allergy/AdvReac Type Severity Reaction Status Date / Time No Known Allergies Allergy Verified 04/18/21 15:19 Physical Exam Physical Examinations : -Constitutiona : Cooperative , not in acute distress . -HEENT : nech : supple , no Lymphadenopathy , normal thyroid size . : eyes : no ptosis , no icterus, no photophobia . - neurologic : Cranial nerve II to XII intact , no focal neurological deffecit . -psychatric : alert , oriented X 3 , appropriate affect , intact judgment and insight . -Lymphatic : no Lymphadenopathy . - musculoskeltal : Lumber spine moter stegnth lower extremities ,thigh and legs 5/5 Right side , 5/5 Left side deep tendon reflexes : normal Knee Jerk , normal ankle Jerk lumber facet Loading Test =positive Right , positive Left Range of motion of the lumbar spine Flexion 30 degrees, extension 10 degrees strait leg raising test = positive at 45 degree Fabere test= positive Right , and positive LT . Sever tenderness over the Sacroiliac joint on the Right , and Left sides Gaenslen test= positive right ,and positive left . Seated flexion test= positive right ,and positive Left . Distraction test= positive bilaterally Sacroiliac compression test= positive bilaterally Results Comments: MRI of the lumbar spine multilevel lumbar facet arthropathy and multilevel lumbar degenerative disc disease at L3 4 and L4 5 and L5-S1 Assessment and Plan Plan: Assessment and plan=1-bilateral sacroiliitis. 2-lumbar spondylosis with lumbar facet arthropathy without myelopathy. 3-lumbar degenerative disc disease. Patient will be good candidate to have bilateral sacroiliac joint steroid injections under fluoroscopy x1 , and will evaluate patient response If she gets good pain relief then we can repeat, if she has no benefit and we'll target the facet joint after that Time with Patient: Greater than 30 PQRS Measure Charge Sheet Measure #130: Documentation of Current Meds in Medical Chart: Patient's medications documented in chart Measure #226: Tobacco Use: Screen & Cessation Intervention: Pt not a tobacco user Measure #111: Pneumonia Vaccination: Pneumococcal vaccine NOT administered or previously given Measure #47: Advance Care Plan: Advance care planning discussed & documented, pt chose/unable to give Measure #412: Opioid Treatment Agreement: No documentation of signed opioid treatment agreement Measure #408: Opioid Therapy Follow-up Evaluation: Patient had NO f/u eval minimum every 3 months during opioid therapy Measure #317: Preventitive Care & Scrn High Bld Press & F/U: Normal blood pressure, f/u not required Measure #128: Body Mass Index (BMI) Screening & Follow-up: BMI documented ABOVE normal parameters - f/u documented Measure #131: Pain Assessment & Follow-up: Pain positive & plan documented, Follow-up scheduled Measure #431: Unhealthy Alcohol Use Preventative Care & Scrn: Patient not identified as an unhealthy alcohol user PQRS Narrative: Smoking Status Never smoker Pain Intensity [Lower Back] 5 Scale Used Numeric (1 - 10) Hx Alcohol Use (MH) Yes: Occasional Home Medications: Ambulatory Orders ALPRAZolam [Xanax] 0.5 mg PO BID PRN 10/14/16 Ergocalciferol (Vitamin D2) [Vitamin D2] 50,000 unit PO FR 10/14/16 hydroCHLOROthiazide [Hydrodiuril] 25 mg PO DAILY 10/14/16 Montelukast [Singulair] 10 mg PO HS 06/12/17 Albuterol Inhaler (Mhu) [Ventolin Hfa Inhaler (Mhu)] 1 - 2 puff INHALATION DIRECTED PRN 08/31/19 Spironolactone [Aldactone] 50 mg PO QAM 08/31/19 Spironolactone [Aldactone] 100 mg PO HS 08/31/19 Vitamin E Tab 180 mg PO HS 08/31/19 rOPINIRole HCL [Requip] 0.25 mg PO HS 08/31/19 Omeprazole 40 mg PO DAILY #30 capsule. 09/02/19 Vitamin C/Biotin [Hair, Skin and Nails] 1 tab PO DAILY 04/18/21
[2021-04-24 12:14] VITALS: BP 120/82; PULSE 86; RESP 18; TEMP 98.3
== END ==
LOC: PNWHC3 10:11
PROVIDERS: ATTEND Specialist
DX: J45.909 Unspecified asthma, uncomplicated (principal); I10 Essential (primary) hypertension; G43.909 Migraine, unspecified, not intractable, without status migrainosus; F41.9 Anxiety disorder, unspecified; F41.0 Panic disorder [episodic paroxysmal anxiety]; K21.9 Gastro-esophageal reflux disease without esophagitis; M46.1 Sacroiliitis, not elsewhere classified; M47.816 Spondylosis without myelopathy or radiculopathy, lumbar region; M51.36 Other intervertebral disc degeneration, lumbar region; Z79.51 Long term (current) use of inhaled steroids; Z79.899 Other long term (current) drug therapy
CPT/HCPCS: 99211

== ENCOUNTER → 2021-05-28 | Outpatient (CLI) | payer OTHER ==
--- NOTE | 2021-05-28 19:35 | XR ---
EXAMINATION TYPE: XR Hip Complete RT DATE OF EXAM: 05/28/2021 Comparison: None Clinical History: 50-year-old female M25.551 Findings: There is mild marginal spurring at the right hip. No acute fracture, subluxation, or dislocation is s een. Impression: Mild degenerative spurring at the right hip. No acute osseous abnormality seen.
== END | disposition home or self-care (01) ==
LOC: RADXRMAIN 14:28
PROVIDERS: ATTEND Physician Assistant
DX: M16.11 Unilateral primary osteoarthritis, right hip (principal)
CPT/HCPCS: 73502

== ENCOUNTER 2021-06-06 07:32 | Day surgery (SDC) | payer OTHER ==
[2021-06-05 09:06] VITALS: BMI 32.4
[~2021-06-06 07:32] MED LIST changes: +LACTATED RINGERS 1,000 ML IV SCH; -SODIUM CHLORIDE 0.9% 500 ML 500 ML in EMPTY BAG 1 BAG IV PRN
[2021-06-06 08:00] VITALS: TEMP 97.7
[2021-06-06] MEDS ORDERED: MIDAZOLAM 2 MG/2 ML VIAL ONE (08:10)
[2021-06-06] MEDS ORDERED: fentaNYL (PF) 50 MCG/ML 2 ML AMP ONE (08:10)
[2021-06-06] MEDS ORDERED: ROPIVACAINE 5MG/ML 20ML VIAL ONE (08:10)
[2021-06-06] MEDS ORDERED: methylPREDNISolone ACETATE 40 MG/ML 1 ML VIAL ONE (08:10)
--- NOTE | 2021-06-06 08:23 | P.PCN ---
Date of Procedure: 06/06/21 Procedure(s) Performed: Procedure= bilateral sacroiliac joints steroid injection under fluoroscopy guidance (fluoroscopy image stored on file in the radiology Department ) Preoperative diagnosis= 1-sacroiliitis 2-lumbar degenerative disc disease 3- lumbar spondylosis with facet arthropathy Postoperative diagnosis=Same as preop Diagnosis . Complication = none Condition= stable Anesthesia= moderate sedation with intravenous Versed 2 mg , and fentanyl 50 micrograms . Indication for the procedure= patient complaining of low back pain , examination was positive for severe tenderness over the sacroiliac joints bilaterally and patient diagnosed with sacroiliitis, for this reason he/ she was good candidate for sacroiliac joint steroid injection. Description of the procedure= procedure risk and benefits discussed with the patient, including but not limited, risk of infection and bleeding, and ALLERGIC reaction to the medication and not complete pain relief and patient agreed with the preceding patient taken to the operating room, placed in prone position or standard monitors applied to the patient then after induction of anesthesia back prepped with chlorhexidine 3 times , Then under strict sterile technique, first I did the right sacroiliac joint the which was identified under fluoroscopy guidance been local infiltration of the skin and subcu interstitial with lidocaine 1% then 22-gauge Quincke Needle advanced slowly under fluoroscopy and placed in the right sacroiliac joint needle placement confirmed with AP and oblique and lateral view and after appropriate needle placement confirmed and after negative aspiration, or heme , then Ropivacaine 0.5% 4 mL, and 40 mg of Depo-Medrol mixed together and injected in the right sacroiliac joint after negative aspiration patient tolerated the procedure well without any complication. Then the left sacroiliac joint steroid injection done under strict sterile technique local infiltration of the skin and subcu interstitial at the location of the left sacroiliac joint then a 22-gauge Quincke Needle advanced slowly under fluoroscopy time placed in the left sacroiliac joint, needle placement confirmed with AP and oblique and lateral view then after appropriate needle placement confirmed and after negative aspiration 0.5% Ropivacaine 4 mL and 40 mg of Depo-Medrol injected in the left sacroiliac joint after negative aspiration patient tolerated the procedure well that any complications and she will follow up in clinic 3 weeks
[2021-06-06] MEDS ORDERED: IV FLUID CONTINUATION 600 ML IV ONE (08:28)
--- NOTE | 2021-06-06 08:33 | FL ---
Fluoroscopy HISTORY: Pain 5 seconds fluoroscopy time supplied to the referring clinician. 2 intraoperative C-arm images docume nt the procedure. See dictated report from anesthesia.
[2021-06-06 08:35] VITALS: RESP 14
[2021-06-06 08:50] VITALS: BP 115/76; PULSE 71
== END 2021-06-06 09:40 | disposition home or self-care (01) ==
LOC: ORPAIN 07:32
PROVIDERS: ATTEND Specialist
DX: M46.1 Sacroiliitis, not elsewhere classified (principal); M51.36 Other intervertebral disc degeneration, lumbar region; M47.816 Spondylosis without myelopathy or radiculopathy, lumbar region; Z90.710 Acquired absence of both cervix and uterus
CPT/HCPCS: J2250; J1030; J3010; J2795; G0260; 99152

== ENCOUNTER → 2021-06-27 | Outpatient (CLI) | payer OTHER ==
[2021-06-27 13:36] VITALS: BP 132/82
[2021-06-27 13:43] VITALS: PULSE 105; RESP 18; TEMP 98.3
--- NOTE | 2021-06-27 13:49 | P.PN ---
Subjective Progress Note Date: 06/27/21 This is a 51-year-old lady with history of chronic lower back pain with rad iation to the right hip status post bilateral sacroiliac joint steroid injection. The patient did not get good relief of pain after the sacroiliac injection. The plan was to try diagnostic lumbar medial branch block in this case. The patient had an x-ray on the right hip joint which showed mild degenerative changes. She says that her right hip laterally pain is bothering her more than her lower back pain. Patient denies new-onset weakness, bowel/bladder incontinence, or any other signs or symptoms of cauda equina syndrome. There are no signs of acute intoxication, and no indications of medication diversion or overuse. In addition to above, 13-point review of systems is also negative for chest pain, shortness of breath, changes in vision, changes in hearing, new onset weakness, abdominal pain, diarrhea, extreme fatigue, malaise, fever, skin changes, homicidal or suicidal ideation, or bowel or bladder incontinence. Vital Signs: Reviewed in EMR Gen: AAOx3, NAD HEENT: PERRLA,hearing grossly normal Pulm: resp unlabored Neck: supple, trachea midline Range of motion of the lumbar spine: Facet loading test: Significantly painful in the lumbar area Tenderness in the paravertebral musculature: Positive the lumbar paravertebral musculature bilaterally Positive tenderness around the right greater trochanter Neuro: CN II-XII grossly intact, Imaging: Reviewed in EMR/chart Assessment: Lumbar spondylosis without myelopathy Right greater trochanter bursitis Mild degenerative changes in the right hip joint Lumbar DDD Overweight Plan: 1. Explanation: When patients on opioids, opioid and psychological risk scores were reviewed. Diagnoses, prognoses, and multiple treatment options including but not limited to physical therapy, interventional therapies, adjuvant medical therapies, narcotic medication therapies, and surgery were discussed with the patient and all questions were answered to the patient's satisfaction. 2. Opioid agreement:When patients are prescribed opoids through our clinic, opioid agreement is signed with the patient and the patient is warned not to use opioids while driving or before driving and not to combine opioids with benzodiazepines or alcohol. 3. Counseling: When patient is smoking or obese, the patient was counseled extensively on SMOKING CESSATION, BODY MASS INDEX, EXERCISE. Specifically, the patient was instructed regarding the importance of smoking cessation, obesity, and exercise in the context of both chronic pain and overall health. 4. Procedures: Scheduled for diagnostic lumbar medial branch block for levels L4 5 and L5-S1 bilaterally under fluoroscopic guidance and also for right greater trochanter bursa steroid injection. 5. Consultations: None 6. Investigations: None 7. Medications: None prescribed 8. Disposition: Proceed with the above-mentioned procedure as soon as possible 9. Maps were reviewed and were appropriate. Objective - Vital Signs Vital signs: Intake & Output 06/26/21 06/27/21 06/27/21 18:59 06:59 18:59 Weight 83.007 kg
== END ==
LOC: PNWHC3 13:29
PROVIDERS: ATTEND Anesthesiology
DX: M47.816 Spondylosis without myelopathy or radiculopathy, lumbar region (principal); M51.36 Other intervertebral disc degeneration, lumbar region; M70.61 Trochanteric bursitis, right hip; M16.11 Unilateral primary osteoarthritis, right hip; E66.3 Overweight; Z68.31 Body mass index [BMI] 31.0-31.9, adult
CPT/HCPCS: 99211

== ENCOUNTER 2021-08-02 08:29 | Day surgery (SDC) | payer OTHER ==
[2021-07-31 14:57] VITALS: BMI 31.7
[2021-08-02 08:46] VITALS: TEMP 96.7
[2021-08-02] MEDS ORDERED: MIDAZOLAM 2 MG/2 ML VIAL ONE (09:33)
[2021-08-02] MEDS ORDERED: fentaNYL (PF) 50 MCG/ML 2 ML AMP ONE (09:33)
[2021-08-02] MEDS ORDERED: TRIAMCINOLONE ACETONIDE 40 MG/ML 1 ML VIAL ONE (09:34)
[2021-08-02] MEDS ORDERED: ROPIVACAINE 5MG/ML 20ML VIAL ONE (09:34)
--- NOTE | 2021-08-02 09:55 | P.PCN ---
Date of Procedure: 08/02/21 Procedure(s) Performed: PREOPERATIVE DIAGNOSIS : 1- Lumbar spondylosis with Facet Arthropathy without myelopathy . 2- Lumber degenerative disc disease. 3- right trochanteric bursitis POSTOPERATIVE DIAGNOSIS: 1- Lumbar spondylosis with Facet Arthropathy without myelopathy . 2- Lumber degenerative disc disease. 3-right trochanteric bursitis PROCEDURE:1- Diagnostic bilateral L3 , L4 , and L5 medial branch block under fluoroscopy guidance(fluoroscopy images available in the radiology Department ) ( To target the facet joint between bilateral L4-5 , and L5-S1 ). 2-right trochanteric bursa steroid injection under fluoroscopy guidance ANESTHESIA:, Monitored anesthesia care as per anesthesia department. EBL: Minimal COMPLICATION: None PROCEDURE INDICATION: Chronic low back pain secondary to Facet arthropathy unresponsive to conservative treatment. PROCEDURE DESCRIPTION: the patient was seen and identified in the preop holding area , risks and benefits and possible complications of the procedure and alternative were discussed with the patient, and the patient agreed to proceed with the procedure and signed the consent and vital signs monitored during the procedure and fluoroscopy was used to maximize the benefit and accuracy of the needle placement, and sedation was given to decrease patient anxiety, patient was taken to the procedure room and placed in prone position vital signs monitored in the back prepped with chlorhexidine X3 then under strict sterile technique using a right oblique fluoroscopy ,the junction of the transverse process and the superior articulating process of the right L3 , L4 , and L5 vertebra which corresponding to the fluoroscopy image of the eye of the Chun dog on the block side for the medial branches and subsequently , after local infiltration of skin and subcu tissuies with Ropivacaine 0.5 % , one mL at each level ,then 22-gauge Quincke-type needles , 3 needle was used , each one of them placed at the junction of the base of the transverse process and the superior articular process at the appropriate level, and the needle was advanced until the periosteum contacted, needle placement confirmed with AP oblique and lateral view and after appropriate needle placement confirmed, and after negative aspiration for heme and CSF and there was no paresthesia 1-1/2 mL of Ropivacaine 0.5% mixed with 20 mg Kenalog, then half mL injected at each level after negative aspiration the needle subsequently removed and the same procedure repeated for the left side at left side at L3 , L4 and L5 levels. Then the right trochanteric bursa and under sterile technique, the right hip area prepped with chlorhexidine 3 then under sterile technique using 22-gauge Quincke Needle, after infiltration of the skin and subcutaneous tissue with ropivacaine 0.5% 2 mL, running 2-gauge Quincke needle advanced slowly under fluoroscopy and placed in the right trochanteric bursa area, then after needle placement confirmed under fluoroscopy and after negative aspiration for heme, ropivacaine 0.5% 5 ML mixed with 40 mg of Depo-Medrol mixed together and injected in the right trochanteric bursa after negative aspiration patient tolerated the procedure well without any complications At the end of the procedure and the needles removed and a bandage applied after the skin was cleaned the cleaning solution patient taken to recovery room in stable condition and monitors in the recovery room for 20-30 minutes and discharged home in stable condition after discharge criteria met and patient will follow up with the pain clinic in 2-4 weeks
[2021-08-02] MEDS ORDERED: IV FLUID CONTINUATION 700 ML IV ONE (09:56)
[2021-08-02 09:59] VITALS: RESP 16
[2021-08-02] MEDS ORDERED: ONDANSETRON 4 MG/2 ML VIAL ONE (10:04)
[2021-08-02] MEDS ORDERED: ONDANSETRON 4 MG/2 ML VIAL IVP ONE (10:09)
[2021-08-02 10:15] VITALS: BP 115/81; PULSE 84
--- NOTE | 2021-08-02 15:17 | FL ---
EXAMINATION TYPE: FL guided pain mgmt statistic DATE OF EXAM: 08/02/2021 FLUOROSCOPY Fluoroscopy time of 10 seconds was used during bilateral lumbar facet block. 5 image/s document/s th e procedure.
== END 2021-08-02 10:44 | disposition home or self-care (01) ==
LOC: ORPAIN 08:29
PROVIDERS: ATTEND Specialist
DX: M47.816 Spondylosis without myelopathy or radiculopathy, lumbar region (principal)
CPT/HCPCS: 64493; 64494; 81025; J2250; J3301; J2405; J3010; J2795

== ENCOUNTER 2021-08-20 08:59 | Day surgery (SDC) | payer OTHER ==
[2021-08-16 15:01] VITALS: BMI 30.9
[2021-08-20] MEDS ORDERED: SCOPOLAMINE 1.5MG/72HR PATCH TRANSDERM ONE (09:36)
[2021-08-20 09:37] VITALS: RESP 16; TEMP 97.3
[2021-08-20] MEDS ORDERED: ROPIVACAINE 5MG/ML 20ML VIAL ONE (09:51)
[2021-08-20] MEDS ORDERED: .fentaNYL (PF) 50 MCG/ML 2 ML AMP ONE (09:51)
[2021-08-20] MEDS ORDERED: MIDAZOLAM 2 MG/2 ML VIAL ONE (09:51)
[2021-08-20] MEDS ORDERED: methylPREDNISolone ACETATE 40 MG/ML 1 ML VIAL ONE (09:51)
[2021-08-20] MEDS ORDERED: IV FLUID CONTINUATION 750 ML IV ONE (10:05)
--- NOTE | 2021-08-20 10:07 | P.PCN ---
Date of Procedure: 08/20/21 Procedure(s) Performed: PREOPERATIVE DIAGNOSIS : 1- Lumbar spondylosis with Facet Arthropathy without myelopathy . 2- Lumber degenerative disc disease. 3- right trochanteric bursitis POSTOPERATIVE DIAGNOSIS: 1- Lumbar spondylosis with Facet Arthropathy without myelopathy . 2- Lumber degenerative disc disease. 3-right trochanteric bursitis PROCEDURE: 1-right trochanteric bursa steroid injection under fluoroscopy guidance (fluoroscopy images available in the radiology Department ) ANESTHESIA:, Moderate sedations as per anesthesia department.. EBL: Minimal COMPLICATION: None PROCEDURE INDICATION: Chronic low back pain secondary to Facet arthropathy unresponsive to conservative treatment., And secondary to right trochanteric bursitis PROCEDURE DESCRIPTION: the patient was seen and identified in the preop holding area , risks and benefits and possible complications of the procedure and alternative were discussed with the patient, and the patient agreed to proceed with the procedure and signed the consent and vital signs monitored during the procedure and fluoroscopy was used to maximize the benefit and accuracy of the needle placement, and sedation was given to decrease patient anxiety, patient was taken to the procedure room and placed in prone position vital signs monitored in the backa nd the right hip area prepped with chlorhexidine X3 then under strict sterile using 22-gauge Quincke Needle, after infiltration of the skin and subcutaneous tissue with ropivacaine 0.5% 2 mL, then needle advanced slowly under fluoroscopy and placed in the right trochanteric bursa area, then after needle placement confirmed under fluoroscopy and after negative aspiration for heme, ropivacaine 0.5% 5 ML mixed with 40 mg of Depo-Medrol mixed together and injected in the right trochanteric bursa after negative aspiration patient tolerated the procedure well without any complications At the end of the procedure and the needles removed and a bandage applied after the skin was cleaned the cleaning solution patient taken to recovery room in stable condition and monitors in the recovery room for 20-30 minutes and discharged home in stable condition after discharge criteria met and patient will follow up with the pain clinic in 2-4 weeks
[2021-08-20 10:23] VITALS: BP 128/79; PULSE 76
--- NOTE | 2021-08-20 10:26 | FL ---
EXAMINATION TYPE: FL guided pain mgmt statistic DATE OF EXAM: 08/20/2021 CLINICAL HISTORY: Right hip pain. TECHNIQUE: Fluoroscopy. COMPARISON: None. FINDINGS: Fluoroscopic guidance was provided during pain relief procedure performed by Dr. Olivas . A total of 1 seconds of fluoroscopic time was utilized during the procedure and 1 spot images are acquired. Single image acquired shows needle localization at the level of greater trochanter in the hip. IMPRESSION: As Above.
== END 2021-08-20 11:35 | disposition home or self-care (01) ==
LOC: ORPAIN 08:59
PROVIDERS: ATTEND Specialist
DX: G89.29 Other chronic pain (principal); M47.816 Spondylosis without myelopathy or radiculopathy, lumbar region; M51.36 Other intervertebral disc degeneration, lumbar region; M70.61 Trochanteric bursitis, right hip; Z90.710 Acquired absence of both cervix and uterus
CPT/HCPCS: 20610; J2250; J1030; J3010; J2795; 99152

== ENCOUNTER → 2021-09-05 | Outpatient (CLI) | payer OTHER ==
[2021-09-05 10:54] VITALS: BP 130/87; PULSE 78; RESP 18; TEMP 98
--- NOTE | 2021-09-05 12:54 | P.PN ---
Subjective Progress Note Date: 09/05/21 This is follow up visit for this 51 years old female with a chronic history of severe low back pain, diagnosed with lumbar spondylosis with lumbar facet arthropathy Bilateral sacroiliitis, and right trochanteric bursitis, previously we have done diagnostic medial branch block lumbar area, right trochanteric bursa steroid injection, x1 patient reported that she get short-term benefit from it, and later on we did right-sided trochanteric bursa steroid injection, because patient reported that most of her pain localized in the right hip area, she had only a few hours of pain relief after the right trochanteric bursa steroid injection, as she is complaining of severe right hip pain, pain in the right hip increased with walking or with any activity interfered with her ability to ambulate, she feels some weakness in her lower extremity, denies any fever or night sweats., Denies any change in the bowel movements or urination, she is done round of physical therapy without any benefit she's done chiropractic treatment without any benefit she used NSAIDs without any benefit Physical Examinations : -Constitutiona : Cooperative , not in acute distress . -HEENT : nech : supple , no Lymphadenopathy , normal thyroid size . : eyes : no ptosis , no icterus, no photophobia . - neurologic : Cranial nerve II to XII intact , no focal neurological deffecit . -psychatric : alert , oriented X 3 , appropriate affect , intact judgment and insight . -Lymphatic : no Lymphadenopathy . - musculoskeltal : Lumber spine moter stegnth lower extremities ,thigh and legs 5/5 Right side , 5/5 Left side deep tendon reflexes : normal Knee Jerk , normal ankle Jerk lumber facet Loading Test =positive Right , positive Left Range of motion of the lumbar spine Flexion 30 degrees, extension 10 degrees strait leg raising test = positive at 45 degree Fabere test= positive Right , and positive LT . Sever tenderness over the Sacroiliac joint on the Right , and Left sides Gaenslen test= positive right ,and positive left . Seated flexion test= positive right ,and positive Left . Distraction test= positive bilaterally Sacroiliac compression test= positive bilaterally sever tenderness over the right trochanteric bursa. Active and passive movement of the right hip associated with severe pain MRI of the lumbar spine multilevel lumbar facet arthropathy and multilevel lumbar degenerative disc disease at L3 4 and L4 5 and L5-S1 Assessment and plan= 1-bilateral sacroiliitis. 2-lumbar spondylosis with lumbar facet arthropathy without myelopathy. 3-lumbar degenerative disc disease. 4-right hip arthralgia 5-right trochanteric bursitis She had short-term benefit from diagnostic medial branch block lumbar area x1 Patient had short-term benefit from right trochanteric bursa steroid injection ( few hours only ). Patient will be referred to orthopedic surgeon for evaluation regarding her right hip pain, and will follow up in the pain clinic later PQRS Measure Charge Sheet Measure #130: Documentation of Current Meds in Medical Chart: Patient's medications documented in chart Measure #226: Tobacco Use: Screen & Cessation Intervention: Pt not a tobacco user Measure #111: Pneumonia Vaccination: Pneumococcal vaccine NOT administered or previously given Measure #47: Advance Care Plan: Advance care planning discussed & documented, pt chose/unable to give Measure #412: Opioid Treatment Agreement: No documentation of signed opioid treatment agreement Measure #408: Opioid Therapy Follow-up Evaluation: Patient had NO f/u eval minimum every 3 months during opioid therapy Measure #317: Preventitive Care & Scrn High Bld Press & F/U: Normal blood pressure, f/u not required Measure #128: Body Mass Index (BMI) Screening & Follow-up: BMI documented ABOVE normal parameters - f/u documented Measure #131: Pain Assessment & Follow-up: Pain positive & plan documented, Follow-up scheduled Measure #431: Unhealthy Alcohol Use Preventative Care & Scrn: Patient not identified as an unhealthy alcohol user PQRS Narrative: Objective - Vital Signs Vital signs: Vital Signs Temp 98.0 F 09/05/21 10:32 Pulse 78 09/05/21 10:32 Resp 18 09/05/21 10:32 BP 130/87 09/05/21 10:32 Pulse Ox 96 09/05/21 10:32
== END ==
LOC: PNWHC3 10:02
PROVIDERS: ATTEND Specialist
DX: M47.816 Spondylosis without myelopathy or radiculopathy, lumbar region (principal); M51.36 Other intervertebral disc degeneration, lumbar region; M46.1 Sacroiliitis, not elsewhere classified; M25.551 Pain in right hip; M70.61 Trochanteric bursitis, right hip
CPT/HCPCS: 99211

== ENCOUNTER → 2022-08-28 | Outpatient (CLI) | payer OTHER ==
--- NOTE | 2022-08-29 13:53 | MM ---
Reason for Exam: Screening (asymptomatic). Last mammogram was performed 7 year(s) and 7 month(s) ago. Patient History: Menarche at age 11. First Full-Term at age 17. Left ovary removed at age 28. Right ovary removed at age 28. Hysterectomy at age 28. Postmenopausal. Patient has history of breast feeding. Maternal aunt had breast cancer, bilateral, under age 50. Risk Values: Sana 5 year model risk: 0.8%. NCI Lifetime model risk: 6.1%. Prior Study Comparison: 04/10/2010 Bilateral Screening Mammogram, [facility]. 01/24/2011 Bilateral Screening Mammogram, [facility]. 01/26/2015 Bilateral Screening Mammogram, [facility]. Tissue Density: The breast tissue is almost entirely fat. Findings: Analyzed By CAD. Pattern appears symmetrical. There is diminished size compared to prior study. Coarse calcifications within the right breast. Some scattered benign calcifications are present bilaterally. No suspicious groups of microcalcifications, spiculated or lobular masses, architectural distortion or other secondary signs of malignancy are mammographically apparent. Overall Assessment: Benign, BI-RAD 2 Management: Screening Mammogram of both breasts in 1 year. A negative mammogram report should not preclude additional follow up of suspicious palpable abnormalities. Patient should continue monthly self breast exam. A clinical breast exam by your physician is recommended on an annual basis and results should be correlated with mammographic findings. Electronically signed and approved by: Abdiaziz Broderick D.O. Radiologis
== END | disposition home or self-care (01) ==
LOC: RADMAMWWP 09:34
PROVIDERS: ATTEND Obstetrics & Gynecology
DX: Z12.31 Encounter for screening mammogram for malignant neoplasm of breast (principal); Z80.3 Family history of malignant neoplasm of breast; Z78.0 Asymptomatic menopausal state
CPT/HCPCS: 77063; 77067

== ENCOUNTER 2022-12-20 07:49 | Emergency (ER) | payer OTHER ==
[2022-12-20 07:58] VITALS: BP 129/83; TEMP 98
[2022-12-20] MEDS ORDERED: KETOROLAC 15 MG/ML 1 ML VIAL IM STA (08:29)
[2022-12-20] MEDS ORDERED: HYDROmorphone 0.5 MG/0.5 ML SYRINGE IM STA (08:29)
[2022-12-20 08:44] VITALS: RESP 18
--- NOTE | 2022-12-20 08:46 | XR ---
EXAMINATION TYPE: XR chest 2V DATE OF EXAM: 12/20/2022 COMPARISON: 09/04/2019 HISTORY: Difficulty breathing. TECHNIQUE: Frontal and lateral views of the chest are obtained. FINDINGS: There is minimal atelectasis or interstitial fibrosis in the lung bases bilaterally. There is no airspace consolidation. There is no pleural effusion or pneumothorax. The heart and pulmonary vasculature are normal. The osseous structures are intact. IMPRESSION: Minimal by basilar atelectasis or interstitial fibrosis. No acute cardiopulmonary diseas e.
--- NOTE | 2022-12-20 09:45 | ED ---
General Adult HPI - General Chief complaint: Recheck/Abnormal Lab/Rx Stated complaint: Left side pain Time Seen by Provider: 12/20/22 08:00 Source: patient, RN notes reviewed, old records reviewed Mode of arrival: ambulatory Limitations: no limitations - History of Present Illness Initial comments: This is a 52-year-old female presents emergency Department complaining of left- sided rib pain. Patient states she fell a few months ago and was told she had broken ribs and ever since then the pain is been intense not improving. Patient denies any difficulty breathing or shortness of breath. Patient states it hurts to take a deep breath but she is not short of breath. Patient denies any anterior chest pain. Patient states palpating it definitely reproduces the pain. Patient denies any further injury. Patient denies any other symptoms - Related Data Home Medications Medication Instructions Recorded Confirmed ALPRAZolam [Xanax] 0.5 mg PO BID PRN 10/14/16 10/28/21 Ergocalciferol (Vitamin D2) 50,000 unit PO FR 10/14/16 10/28/21 [Vitamin D2] hydroCHLOROthiazide [Hydrodiuril] 25 mg PO DAILY 10/14/16 10/28/21 Montelukast [Singulair] 10 mg PO HS 06/12/17 10/28/21 Albuterol Inhaler [Ventolin Hfa 1 - 2 puff INHALATION DIRECTED 08/31/19 10/28/21 Inhaler] PRN Spironolactone [Aldactone] 50 mg PO QAM 08/31/19 10/28/21 Spironolactone [Aldactone] 100 mg PO HS 08/31/19 10/28/21 Vitamin E Tab 180 mg PO HS 08/31/19 10/28/21 rOPINIRole HCL [Requip] 0.25 mg PO HS 08/31/19 10/28/21 Vitamin C/Biotin [Hair, Skin and 1 tab PO DAILY 04/18/21 10/28/21 Nails] Phentermine HCl [Adipex-P] 37.5 mg PO DAILY 07/31/21 10/28/21 Gabapentin 600 mg PO BID 09/03/21 10/28/21 HYDROcodone/APAP 5-325MG [[place] 1 tab PO DIRECTED PRN 09/03/21 10/28/21 5-325] Previous Rx's Medication Instructions Recorded Omeprazole 40 mg PO DAILY #30 capsule. 09/02/19 Cyclobenzaprine [Flexeril] 10 mg PO TID #20 tab 12/20/22 Ketorolac [Toradol] 10 mg PO Q6HR #15 tab 12/20/22 Allergies Allergy/AdvReac Type Severity Reaction Status Date / Time No Known Allergies Allergy Verified 12/20/22 07:58 Review of Systems ROS Statement: Those systems with pertinent positive or pertinent negative responses have been documented in the HPI. ROS Other: All systems not noted in ROS Statement are negative. Past Medical History Past Medical History: Asthma, Eye Disorder, GERD/Reflux, Hypertension, Sleep Apnea/CPAP/BIPAP Additional Past Medical History / Comment(s): Migraines, bilateral NARROW LENS GLAUCOMA. DOES NOT USE CPAP, RLS, alopecia. History of Any Multi-Drug Resistant Organisms: None Reported Past Surgical History: Breast Surgery, Cholecystectomy, Hernia Repair, Hysterectomy Additional Past Surgical History / Comment(s): Bilateral breast reduction, bilateral eye laser surgery, COLONOSCOPY, hiatal hernia repair., pain clinic procedures. Past Anesthesia/Blood Transfusion Reactions: Previous Problems w/ Anesthesia, Motion Sickness, Postoperative Nausea & Vomiting (PONV) Additional Past Anesthesia/Blood Transfusion Reaction / Comment(s): "Aspiration while under anesthesia for colonoscopy.". Past Psychological History: Anxiety, Depression, Panic Disorder Smoking Status: Never smoker Past Alcohol Use History: Occasional Past Drug Use History: None Reported - Past Family History Brother(s) Family Medical History: Cancer Additional Family Medical History / Comment(s): COLON CANCER. General Exam - General Exam Comments Initial Comments: GENERAL: Patient is well-developed and well-nourished. Patient is nontoxic and well- hydrated and is in mild distress. ENT: Neck is soft and supple. No significant lymphadenopathy is noted. Oropharynx is clear. Moist mucous membranes. Neck has full range of motion without eliciting any pain. EYES: The sclera were anicteric and conjunctiva were pink and moist. Extraocular movements were intact and pupils were equal round and reactive to light. Eyelids were unremarkable. PULMONARY: Unlabored respirations. Good breath sounds bilaterally. No audible rales rhonchi or wheezing was noted. CARDIOVASCULAR: There is a regular rate and rhythm without any murmurs gallops or rubs. Chest pain is completely reproducible on palpation. There are no rashes in the area. ABDOMEN: Soft and nontender with normal bowel sounds. SKIN: Skin is clear with no lesions or rashes and otherwise unremarkable. NEUROLOGIC: Patient is alert and oriented x3. Cranial nerves II through XII are grossly intact. Motor and sensory are also intact. Normal speech, volume and content. Symmetrical smile. MUSCULOSKELETAL: Normal extremities with adequate strength and full range of motion. LYMPHATICS: No significant lymphadenopathy is noted PSYCHIATRIC: Normal psychiatric evaluation. Limitations: no limitations Course Vital Signs 12/20/22 12/20/22 07:55 08:30 Temperature 98 F Pulse Rate 81 Respiratory 20 18 Rate Blood Pressure 129/83 O2 Sat by Pulse 99 Oximetry Medical Decision Making - Medical Decision Making Was pt. sent in by a medical professional or institution (, PA, MEDICAL STAFF DIRECTOR, urgent care, hospital, or longterm...) When possible be specific @ -No Did you speak to anyone other than the patient for history (EMS, parent, family, police, friend...)? What history was obtained from this source @ -No Did you review nursing and triage notes (agree or disagree)? Why? @ -I reviewed and agree with nursing and triage notes Were old charts reviewed (outside hosp., previous admission, EMS record, old EKG, old radiological studies, urgent care reports/EKG's, longterm records)? Report findings @ -No old charts were reviewed Differential Diagnosis (chest pain, altered mental status, abdominal pain women, abdominal pain men, vaginal bleeding, weakness, fever, dyspnea, syncope, headache, dizziness, GI bleed, back pain, seizure, CVA, palpatations, mental health, musculoskeletal)? @ -Differential Musculoskeletal Muscular strain, contusion, ligament sprain, fracture, arthritis, septic arthrit is, bursitis, cellulitis, muscle spasm, nerve compression, DVT, arterial occlusion, herpes zoster, electrolyte abnormality, tumor.... This is not meant to be in all inclusive list EKG interpreted by me (3pts min.). @ -As above X-rays interpreted by me (1pt min.). @ -X-ray was interpreted by myself shows no acute abnormality. CT interpreted by me (1pt min.). @ -None done U/S interpreted by me (1pt. min.). @ -None done What testing was considered but not performed or refused? (CT, X-rays, U/S, labs)? Why? @ -None What meds were considered but not given or refused? Why? @ -None Did you discuss the management of the patient with other professionals (professionals i.e. , PA, MEDICAL STAFF DIRECTOR, lab, RT, psych nurse, social welfare clerk, process development associate, teacher, parole hearing officer, shoe parts caser)? Give summary @ -No Was smoking cessation discussed for >3mins.? @ -No Was critical care preformed (if so, how long)? @ -No Were there social determinants of health that impacted care today? How? (Homelessness, low income, unemployed, alcoholism, drug addiction, trans portation, low edu. Level, literacy, decrease access to med. care, intermediate, rehab)? @ -No Was there de-escalation of care discussed even if they declined (Discuss DNR or withdrawal of care, Hospice)? DNR status @ -No What co-morbidities impacted this encounter? (DM, HTN, Smoking, COPD, CAD, Cancer, CVA, ARF, Chemo, Hep., AIDS, mental health diagnosis, sleep apnea, morbid obesity)? @ -None Was patient admitted / discharged? Hospital course, mention meds given and route, prescriptions, significant lab abnormalities, going to OR and other pertinent info. @ -Patient received Toradol and Dilaudid IM and she was feeling considerably better. Patient's chest x-ray showed no obvious rib fracture no acute problems with the long. Undiagnosed new problem with uncertain prognosis? @ -No Drug Therapy requiring intensive monitoring for toxicity (Heparin, Nitro, Insulin, Cardizem)? @ -No Were any procedures done? @ -No Diagnosis/symptom? @ -Musculoskeletal chest pain Acute, or Chronic, or Acute on Chronic? @ -Acute Uncomplicated (without systemic symptoms) or Complicated (systemic symptoms)? @ -Uncomplicated Side effects of treatment? @ -No Exacerbation, Progression, or Severe Exacerbation? @ -No Poses a threat to life or bodily function? How? (Chest pain, USA, CT, pneumonia, PE, COPD, DKA, ARF, appy, cholecystitis, CVA, Diverticulitis, Homicidal, Suicidal, threat to staff... and all critical care pts) @ -No Disposition Clinical Impression: Musculoskeletal chest pain Disposition: HOME SELF-CARE Condition: Good Prescriptions: Cyclobenzaprine [Flexeril] 10 mg PO TID #20 tab Ketorolac [Toradol] 10 mg PO Q6HR #15 tab Is patient prescribed a controlled substance at d/c from ED?: No Referrals: Tara Valencia DO [Primary Care Provider] - 1-2 days Time of Disposition: 09:44
[2022-12-20] MEDS ORDERED: ACET/COD 300 MG/30 MG STARTER PACK 6 TAB BTL PO STA (09:49)
[2022-12-20] MEDS ORDERED: ONDANSETRON 4 MG/2 ML VIAL IM STA (09:49)
[2022-12-20 10:09] VITALS: PULSE 80
== END 2022-12-20 10:05 | disposition home or self-care (01) ==
LOC: EC 07:49
DX: R07.89 Other chest pain (principal); J45.909 Unspecified asthma, uncomplicated; I10 Essential (primary) hypertension; F41.9 Anxiety disorder, unspecified; F32.A Depression, unspecified; Z79.899 Other long term (current) drug therapy
CPT/HCPCS: 71046; 99283; 96372 ×3; J2405; J1885; J1170

== ENCOUNTER → 2023-01-23 | Outpatient (CLI) | payer OTHER ==
--- NOTE | 2023-01-23 15:08 | NM ---
EXAMINATION TYPE: NM bone scan whole body DATE OF EXAM: 01/23/2023 COMPARISON: Chest radiographv12/20/2022 CLINICAL INDICATION: Female, 52 years old with history of R07.81; Delayed whole-body scanning was performed following the injection of 22.1 mCi Tc 99m MDP. Images acq uired 3.25 hours post injection. FINDINGS: There is increased uptake within the bilateral shoulder, bilateral ankles and feet, bilateral knees, sternoclavicular, and sacroiliac joints consistent with degenerative changes. Single focus of uptake demonstrated within the left lateral eighth rib. Physiologic radiotracer activity is demonstrated in the kidneys and bladder. IMPRESSION: Single focus of uptake demonstrate within the left lateral eighth rib suggests a nondispl aced fracture when corresponding with chest radiograph.
== END | disposition home or self-care (01) ==
LOC: RADNMMAIN 10:36
PROVIDERS: ATTEND Family Medicine
DX: R07.81 Pleurodynia (principal); R93.7 Abnormal findings on diagnostic imaging of other parts of musculoskeletal system
CPT/HCPCS: 78306; A9503

== ENCOUNTER 2023-08-26 08:44 | Day surgery (SDC) | payer OTHER ==
[2023-08-24 16:09] VITALS: BMI 34.8
--- NOTE | 2023-08-26 07:36 | P.GSHP ---
History of Present Illness H&P Date: 08/26/23 CHIEF COMPLAINT: GERD and colon screen HISTORY OF PRESENT ILLNESS: The patient is a 53-year-old female who presents with gastroesophageal reflux disease and need for colon screen. Upper and lower endoscopy were offered for further evaluation and management. PAST MEDICAL HISTORY: Please see list. PAST SURGICAL HISTORY: Please see list. MEDICATIONS: Please see list. ALLERGIES: Please see list. SOCIAL HISTORY: No illicit drug use FAMILY HISTORY: No reports of Crohn disease or ulcerative colitis. REVIEW OF ORGAN SYSTEMS: CONSTITUTIONAL: No reports of fevers or chills. GI: Denies any blood in stools or constipation. PHYSICAL EXAM: VITAL SIGNS: Stable GENERAL: Well-developed pleasant in no acute distress. HEENT: No scleral icterus. Extraocular movements grossly intact. Moist buccal mucosa. NECK: Supple without lymphadenopathy. CHEST: Unlabored respirations. Equal bilateral excursions. CARDIOVASCULAR: Regular rate and rhythm. Distal 2+ pulses. ABDOMEN: Soft, nondistended. MUSCULOSKELETAL: No clubbing, cyanosis, or edema. ASSESSMENT: 1. Gastroesophageal reflux disease 2. Colon screen. PLAN: 1. Recommend proceeding with an upper and lower endoscopy Past Medical History Past Medical History: Asthma, Eye Disorder, GERD/Reflux, Hypertension, Sleep Apnea/CPAP/BIPAP Additional Past Medical History / Comment(s): Migraines, bilateral NARROW LENS GLAUCOMA. DOES NOT USE CPAP, RLS, alopecia. Chronic back pain. History of Any Multi-Drug Resistant Organisms: None Reported Past Surgical History: Breast Surgery, Cholecystectomy, Hernia Repair, Hysterectomy Additional Past Surgical History / Comment(s): Bilateral breast reduction, bilateral eye laser surgery, colonoscopy, hiatal hernia repair, pain clinic procedures. Past Anesthesia/Blood Transfusion Reactions: Previous Problems w/ Anesthesia, Motion Sickness, Postoperative Nausea & Vomiting (PONV) Additional Past Anesthesia/Blood Transfusion Reaction / Comment(s): "Aspiration while under anesthesia for colonoscopy.". Past Psychological History: Anxiety, Depression, Panic Disorder Smoking Status: Never smoker Past Alcohol Use History: Occasional Past Drug Use History: None Reported - Past Family History Brother(s) Family Medical History: Cancer Additional Family Medical History / Comment(s): COLON CANCER. Medications and Allergies Home Medications Medication Instructions Recorded Confirmed Type ALPRAZolam [Xanax] 0.5 mg PO BID PRN 10/14/16 08/24/23 History Ergocalciferol (Vitamin D2) 50,000 unit PO FR 10/14/16 08/24/23 History [Vitamin D2] Albuterol Inhaler [Ventolin Hfa 1 - 2 puff INHALATION DIRECTED 08/31/19 08/24/23 History Inhaler] PRN rOPINIRole HCL [Requip] 0.25 mg PO HS 08/31/19 08/24/23 History Vitamin C/Biotin [Hair, Skin and 1 tab PO DAILY 04/18/21 08/24/23 History Nails] HYDROcodone/APAP 5-325MG [[place] 1 tab PO Q4H PRN 09/03/21 08/24/23 History 5-325] Omeprazole 40 mg PO QAM 08/24/23 08/24/23 History Allergies Allergy/AdvReac Type Severity Reaction Status Date / Time No Known Allergies Allergy Verified 08/24/23 15:55
[2023-08-26 09:22] VITALS: TEMP 98.3
[2023-08-26] MEDS ORDERED: LIDOCAINE 1% INJ 10MG/ML (20 ML MDV) ONE (09:40)
[2023-08-26] MEDS ORDERED: PROPOFOL 10 MG/ML 20 ML VIAL IV ONE (09:40)
[2023-08-26 10:39] VITALS: BP 146/78; PULSE 75; RESP 20
--- NOTE | 2023-08-26 10:42 | P.PCN ---
Date of Procedure: 08/26/23 Description of Procedure: PREOPERATIVE DIAGNOSIS: Gastroesophageal reflux disease. Morbid obesity. POSTOPERATIVE DIAGNOSIS: Gastroesophageal reflux disease. Morbid obesity. Gastritis. Diaphragmatic hiatal hernia OPERATION: Esophagogastroduodenoscopy with biopsies along the esophagus, antrum and duodenum SURGEON: Niki Kumar MD ANESTHESIA: MAC. INDICATIONS: The patient is a 53-year-old female who presents with reflux disease. Benefits and risks of the procedure were described. Informed consent was obtained. DESCRIPTION: The patient was brought into the endoscopy suite and laid in the left lateral decubitus position. An Olympus gastroscope was passed along the posterior oropharynx down to the distal esophagus where the squamocolumnar junction was encountered at 35 cm from the incisors. The stomach was entered and no bile reflux was found. Additional findings are listed below. Biopsies with cold forceps were obtained of the antrum. The first through third portion of the duodenum was examined. Retroflexion of the scope confirmed Hill grade 2 lower esophageal valve. The squamocolumnar junction demonstrated LA grade B+ erosive esophagitis. The stomach was desufflated. The patient tolerated the procedure well. FINDINGS: Squamocolumnar junction 35 cm from the incisors. Diaphragmatic hiatus at 36 cm. Hiatal hernia, 1 cm Hill grade 2 lower esophageal valve. LA grade B+ erosive esophagitis with biopsies obtained Biopsies obtained of the duodenum. Chronic gastritis with biopsies obtained. RECOMMENDATIONS: Upper endoscopy as needed. Recommend gastric bypass with uncontrolled gastroesophageal reflux disease
--- NOTE | 2023-08-26 10:45 | P.PCN ---
Date of Procedure: 08/26/23 Description of Procedure: PREOPERATIVE DIAGNOSIS: Personal history of colon polyps Family history malignant colon polyps Colonoscopy screening POSTOPERATIVE DIAGNOSIS: Tubular adenoma, sigmoid colon Sigmoid diverticulosis Pandiverticulosis OPERATION: Colonoscopy to the ileocecal valve and appendiceal orifice, cecum Colonoscopy with cold forceps biopsy SURGEON: Niki Kumar MD. ANESTHESIA: MAC. INDICATIONS: The patient is an 53-year-old female who presents family history of malignant colon polyps and personal history of colon polyps. Last colonoscopy 5 years. Benefits and risks were described and informed consent was obtained. DESCRIPTION OF PROCEDURE: The patient had undergone Sutab prep. The patient had been brought into the operating room and laid in the left lateral decubitus position. After adequate intravenous sedation, the rectum was examined with 2% lidocaine jelly. No external hemorrhoids were encountered. The rectal tone was within normal limits. No lesions were palpated in the rectal vault. An Olympus colonoscope was advanced until the cecum, ileocecal valve and appendiceal orifice were clearly viewed. The prep was excellent Sigmoid diverticulosis was encountered. Colonic polyps were found and removed. No evidence of focal colitis was found. Retroflexion of the scope demonstrated grade 2 internal hemorrhoids without active bleeding or inflammation. The colon was desufflated. The patient had tolerated the procedure well. Withdrawal time was over 6 minutes. FINDINGS: Aronchick preparation quality scale 1 (1-5) Internal hemorrhoids, grade 1 No external hemorrhoids No arteriovenous malformations. Sigmoid diverticulosis, moderate with pandiverticulosis Removal of 1 polyps: - Cold forceps biopsy at sigmoid colon, 5 mm adenoma No focal colitis. RECOMMENDATIONS: Repeat colonoscopy in 3 years, 2025 Plan - Discharge Summary Discharge Rx Participant: No New Discharge Prescriptions: Continue Ergocalciferol (Vitamin D2) [Vitamin D2] 50,000 unit PO FR ALPRAZolam [Xanax] 0.5 mg PO BID PRN PRN Reason: Anxiety rOPINIRole HCL [Requip] 0.25 mg PO HS Albuterol Inhaler [Ventolin Hfa Inhaler] 1 - 2 puff INHALATION DIRECTED PRN PRN Reason: Shortness Of Breath HYDROcodone/APAP 5-325MG [[place] 5-325] 1 tab PO Q4H PRN PRN Reason: Pain Omeprazole 40 mg PO QAM Vitamin C/Biotin [Hair, Skin and Nails Chew] 1 tab PO DAILY Discharge Medication List ALPRAZolam [Xanax] 0.5 mg PO BID PRN 10/14/16 [History] Ergocalciferol (Vitamin D2) [Vitamin D2] 50,000 unit PO FR 10/14/16 [History] Albuterol Inhaler [Ventolin Hfa Inhaler] 1 - 2 puff INHALATION DIRECTED PRN 08/31/19 [History] rOPINIRole HCL [Requip] 0.25 mg PO HS 08/31/19 [History] Vitamin C/Biotin [Hair, Skin and Nails Chew] 1 tab PO DAILY 04/18/21 [History] HYDROcodone/APAP 5-325MG [[place] 5-325] 1 tab PO Q4H PRN 09/03/21 [History] Omeprazole 40 mg PO QAM 08/24/23 [History] [place] [facility] [facility] [place] [facility] [place] [facility] Patient Instructions/Handouts: *Surgery [facility] - (Anesthesia) Discharge Instructions Outpatient Surgery, Diverticulosis (DC), GERD (Gastroesophageal Reflux Disease) (ED), Diverticulosis Diet (GEN) Activity/Diet/Wound Care/Special Instructions: Repeat colonoscopy 3 years, 2025 Discharge Disposition: HOME SELF-CARE
[2023-08-26] MEDS ORDERED: ONDANSETRON 4 MG/2 ML VIAL ONE (10:59)
[2023-08-26] MEDS ORDERED: ONDANSETRON 4 MG/2 ML VIAL IVP ONE (11:00)
== END 2023-08-26 11:59 | disposition home or self-care (01) ==
LOC: ORWHC2ENDO 08:44
PROVIDERS: ATTEND Surgery Plastic and Reconstructive Surgery
DX: Z12.11 Encounter for screening for malignant neoplasm of colon (principal); K21.9 Gastro-esophageal reflux disease without esophagitis; K31.A0 Gastric intestinal metaplasia, unspecified; K29.50 Unspecified chronic gastritis without bleeding; K21.00 Gastro-esophageal reflux disease with esophagitis, without bleeding; D12.5 Benign neoplasm of sigmoid colon; E66.01 Morbid (severe) obesity due to excess calories; F32.A Depression, unspecified; F41.9 Anxiety disorder, unspecified; G89.29 Other chronic pain; I10 Essential (primary) hypertension; J45.909 Unspecified asthma, uncomplicated; K44.9 Diaphragmatic hernia without obstruction or gangrene; K57.30 Diverticulosis of large intestine without perforation or abscess without bleeding; Z80.0 Family history of malignant neoplasm of digestive organs; Z90.49 Acquired absence of other specified parts of digestive tract; Z83.711 Family history of hyperplastic colon polyps
CPT/HCPCS: 88305; 45380; 43239; J2405; J2001; J2704

== ENCOUNTER → 2023-09-09 | Outpatient (CLI) | payer OTHER ==
[2023-09-09 14:44] VITALS: BP 139/83; PULSE 87; RESP 16; TEMP 98.1; BMI 34.8
--- NOTE | 2023-09-09 15:29 | P.BASOAP ---
Subjective Progress Note Date: 09/09/23 DATE OF SERVICE: 09/09/23 CHIEF COMPLAINT: Bariatric evaluation HISTORY OF PRESENT ILLNESS: Mini Hilton is a 53-year-old female who comes with morbid obesity. As a result of her morbid obesity, she has developed hypertensive heart disease, osteoarthritis of the knees, including sleep apnea. She is under medical supervised weight loss. She has severe gastroesophageal reflux disease uncontrolled despite multiple hiatal hernia repairs including medications. She also presents with panniculitis. She did see the generator repairer. At height of 5 feet 4 inches, her ideal body weight is 144 pounds. Her highest weight was 238 pounds. Her BMI was 40.3. She comes in 210 pounds from 214 pounds, 2 years ago. She has lost 4 pounds in 2 years. Her body mass index is 36.0. She is 66 pounds overweight. PAST MEDICAL HISTORY: 1. Morbid obesity due to excess calories 2. Body mass index of 40.3, initial 3. Panniculitis 4. Obstructive sleep apnea 5. Gastroesophageal reflux disease 6. Hypertensive heart disease 7. Asthma 8. Migraines 9. Glaucoma 10. Shingles 11. Postop nausea and vomiting 12. Anxiety disorder 13. Osteoarthritis of the knees 14. Endometriosis PAST SURGICAL HISTORY: 1. Cholecystectomy 2. Hiatal hernia repair x 2 3. Hysterectomy 4. Colonoscopy 5. Bayron fundoplasty 6. Bilateral breast reduction HOME MEDICATIONS: Home Medications Medication Instructions Recorded Confirmed ALPRAZolam [Xanax] 0.5 mg PO BID PRN 10/14/16 09/09/23 Ergocalciferol (Vitamin D2) 50,000 unit PO FR 10/14/16 09/09/23 [Vitamin D2] Albuterol Inhaler [Ventolin Hfa 1 - 2 puff INHALATION DIRECTED 08/31/19 09/09/23 Inhaler] PRN rOPINIRole HCL [Requip] 0.25 mg PO HS 08/31/19 09/09/23 Vitamin C/Biotin [Hair, Skin and 1 tab PO DAILY 04/18/21 09/09/23 Nails Chew] HYDROcodone/APAP 5-325MG [[place] 1 tab PO Q4H PRN 09/03/21 09/09/23 5-325] Omeprazole 40 mg PO QAM 08/24/23 09/09/23 ALLERGIES: Allergies Allergy/AdvReac Type Severity Reaction Status Date / Time No Known Allergies Allergy Verified 08/26/23 09:18 SOCIAL HISTORY: Denies past tobacco use. FAMILY HISTORY: No family history of ulcerative colitis disease or Crohn's disease. Family history of morbid obesity. No lupus in the family. No reports of stomach or esophageal cancer. REVIEW OF ORGAN SYSTEMS: CONSTITUTIONAL: At height of 5 feet 4.5 inches, her ideal body weight is 144 pounds. Her highest weight was 238 pounds. Her BMI was 40.3. HEENT: Denies any active troubles with vision or hearing. ENDOCRINE: No diabetes. No hypothyroidism. CARDIOVASCULAR: No reports of palpitations or heart attacks or chest pain. Has hypertensive heart disease. RESPIRATORY: Has daytime somnolence. Has asthma. Has sleep apnea. GASTROINTESTINAL: Denies any bright red blood per rectum. No diarrhea. No constipation. Has gastroesophageal reflux disease. MUSCULOSKELETAL: Has lower back pain and joint pain. Has osteoarthritis of the knees. NEURO: No headaches. No seizure disorders. PSYCH: No suicidal ideation. Has anxiety. RHEUMATOLOGIC: No lupus. No rheumatoid arthritis. HEMATOLOGIC: Denies any abnormal bleeding or bruising. No personal history of DVTs. SKIN: Has panniculitis. No skin cancer. PHYSICAL EXAM: VITAL SIGNS: Height 5 foot 4 inches, weight 210 pounds. BMI 36.0 Vital Signs Temp 98.1 F 09/09/23 14:32 Pulse 87 09/09/23 14:32 Resp 16 09/09/23 14:32 BP 139/83 09/09/23 14:32 Pulse Ox FiO2 GENERAL: Well-developed in no acute distress. HEENT: No scleral icterus. Extraocular movements grossly intact. Hears conversational speech. No nasal drainage. NECK: Supple without lymphadenopathy. CHEST: Nonlabored respirations with equal bilateral excursions. CARDIOVASCULAR: Regular rate and regular rhythm. Distal 2+ pulses. ABDOMEN: Obese, soft, nondistended. MUSCULOSKELETAL: No clubbing, cyanosis. NEURO: No focal or lateralizing signs. Cranial nerves 2 through 12 grossly within normal limits. PSYCH: Appropriate affect. Alert and oriented to person, place and time. SKIN: Good skin turgor. Well perfused. EGD FINDINGS: Squamocolumnar junction 35 cm from the incisors. Diaphragmatic hiatus at 36 cm. Hiatal hernia, 1 cm Hill grade 2 lower esophageal valve. LA grade B+ erosive esophagitis with biopsies obtained Biopsies obtained of the duodenum. Chronic gastritis with biopsies obtained. COLON FINDINGS: Aronchick preparation quality scale 1 (1-5) Internal hemorrhoids, grade 1 No external hemorrhoids No arteriovenous malformations. Sigmoid diverticulosis, moderate with pandiverticulosis Removal of 1 polyps: - Cold forceps biopsy at sigmoid colon, 5 mm adenoma No focal colitis. Final Pathologic Diagnosis A. DUODENUM, BIOPSY: Benign small bowel mucosa with intact villous architecture, negative for histopathologic abnormality. B. GASTRIC ANTRUM, BIOPSY: Chronic gastritis with focal intestinal metaplasia. Helicobacter pylori organisms are not identified on routine H+E sections. C. ESOPHAGUS, BIOPSY: Benign squamoglandular mucosa showing chronic esophagitis with rare intramucosal eosinophils consistent with reflux esophagitis. Negative for intestinal metaplasia. D. SIGMOID COLON, BIOPSY: Hyperplastic polyp. ASSESSMENT: 1. Morbid obesity due to excess calories 2. Body mass index of 40.3, initial to 36.0 3. Panniculitis 4. Obstructive sleep apnea 5. Gastroesophageal reflux disease 6. Hypertensive heart disease 7. Asthma 8. Migraines 9. Glaucoma 10. Shingles 11. Postop nausea and vomiting 12. Anxiety disorder 13. Osteoarthritis of the knees PLAN: 1. Recommend bariatric labs for correction micro- and macronutrient deficiencies 2. Continue medical supervised weight loss 3. Will need 12-lead EKG including cardiac risk assessment 4. Recommend evaluation for gastric bypass for recurrent gastroesophageal reflux uncontrolled despite medication 5. Recommend follow-up with generator repairer for panniculitis Objective - Vital Signs Vital signs: Vital Signs Temp 98.1 F 09/09/23 14:32 Pulse 87 09/09/23 14:32 Resp 16 09/09/23 14:32 BP 139/83 09/09/23 14:32 Pulse Ox FiO2 Intake & Output 09/08/23 09/09/23 09/09/23 18:59 06:59 18:59 Weight 95.028 kg Assessment/Plan Plan: Date: 09/09/23 Initial Weight: 88.224 kg Initial BMI: 32.8 Current Weight: 95.028 kg Current BMI: 34.8 Type of Surgery: Total Volume in Band: Previous Volume: Volume Removed: Volume Added: Band Size:
== END ==
LOC: BARWHC3 13:29
PROVIDERS: ATTEND Surgery Plastic and Reconstructive Surgery
DX: E66.01 Morbid (severe) obesity due to excess calories (principal); M79.3 Panniculitis, unspecified; G47.33 Obstructive sleep apnea (adult) (pediatric); K21.9 Gastro-esophageal reflux disease without esophagitis; I11.0 Hypertensive heart disease with heart failure; J45.909 Unspecified asthma, uncomplicated; G43.909 Migraine, unspecified, not intractable, without status migrainosus; H40.9 Unspecified glaucoma; B02.9 Zoster without complications; F41.9 Anxiety disorder, unspecified; M17.0 Bilateral primary osteoarthritis of knee; R11.2 Nausea with vomiting, unspecified; Z68.36 Body mass index [BMI] 36.0-36.9, adult; Z90.49 Acquired absence of other specified parts of digestive tract; Z98.890 Other specified postprocedural states; Z90.710 Acquired absence of both cervix and uterus
CPT/HCPCS: 99211

== ENCOUNTER → 2023-10-14 | Outpatient (CLI) | payer OTHER ==
[2023-10-14 13:18] LABS: INR 0.9 (<1.2); Partial Thromboplastin Time 22.5 sec (22.0-30.0); Prothrombin Time 10.1 sec (10.0-12.5)
[2023-10-14 16:02] LABS: HGB 13.6 g/dL (12.0-15.0); MCH 31.2 pg (27.0-32.0); MCHC 33.2 g/dL (32.0-37.0); Mean Platelet Volume 10.1 FL (9.5-12.2); NRBC Per 100 WBC 0 X 10*3/uL (0.00-0.01); Platelet Count 192 X 10*3/uL (140-440); RBC 4.36 X 10*6/uL (4.10-5.20)
[2023-10-14 16:36] LABS: ALT 32 U/L (8-44); AST 22 U/L (13-35); Albumin 4.3 g/dL (3.8-4.9); Albumin/Globulin Ratio 1.79 Ratio (1.60-3.17); Alkaline Phosphatase 97 U/L (41-126); BUN/Creat Ratio 19.57 Ratio (12.00-20.00); Blood Urea Nitrogen 13.7 mg/dL (9.0-27.0); Calcium 9.7 mg/dL (8.7-10.3); Carbon Dioxide 25.9 mmol/L (21.6-31.8); Chloride 103 mmol/L (96-109); Chol/HDL Ratio 4.46 Ratio; Globulin 2.4 g/dL (1.6-3.3); Glucose 99 mg/dL (70-110); Iron 79 UG/DL (50-170); LDL Cholesterol,Calculated 155.1 mg/dL (0.0-131.0); Phosphorus 3.7 mg/dL (2.4-5.1); Potassium 4.4 mmol/L (3.5-5.5); Sodium 140 mmol/L (135-145); Total Bilirubin 0.4 mg/dL (0.3-1.2); Total Iron Binding Capacity 427 UG/DL (228-460); Total Protein 6.7 g/dL (6.2-8.2)
[2023-10-14 17:28] LABS: Prealbumin 24.8 mg/dL (18.0-42.0)
[2023-10-15 11:55] LABS: Zinc, Serum 97 ug/dL (60-130)
[2023-10-16 03:47] LABS: Vitamin A 51 ug/dL (38-106)
[2023-10-16 10:37] LABS: Vit B1(Thiamine) 62 ug/L (38-122)
== END | disposition home or self-care (01) ==
LOC: LABWHC1 12:04
PROVIDERS: ATTEND Surgery Plastic and Reconstructive Surgery
DX: E66.01 Morbid (severe) obesity due to excess calories (principal); E89.1 Postprocedural hypoinsulinemia; D50.8 Other iron deficiency anemias; K91.2 Postsurgical malabsorption, not elsewhere classified; E44.0 Moderate protein-calorie malnutrition; E44.1 Mild protein-calorie malnutrition; E45 Retarded development following protein-calorie malnutrition; E46 Unspecified protein-calorie malnutrition; E55.9 Vitamin D deficiency, unspecified; K74.1 Hepatic sclerosis; N19 Unspecified kidney failure; T56.894A Toxic effect of other metals, undetermined, initial encounter; K50.90 Crohn's disease, unspecified, without complications
CPT/HCPCS: 84255; 84134; 84425; 80061; 80053; 82607; 82728; 82525; 82746; 83540; 83550; 83735; 84100; 84443; 84590; 84630; 85027; 85610; 85730; 82306; 83970; 83036; 80307; 93005; 36415; G0480; 80323

== ENCOUNTER → 2023-10-19 | Outpatient (CLI) | payer OTHER ==
[2023-10-19 14:40] VITALS: BMI 37.4
== END ==
LOC: BARWHC3 12:39
PROVIDERS: ATTEND Surgery Plastic and Reconstructive Surgery
DX: E66.01 Morbid (severe) obesity due to excess calories (principal); Z71.3 Dietary counseling and surveillance; Z68.37 Body mass index [BMI] 37.0-37.9, adult
CPT/HCPCS: 97804; G0463; 99211

== ENCOUNTER → 2023-11-06 | Outpatient (CLI) | payer OTHER ==
--- NOTE | 2023-11-09 14:26 | MM ---
Reason for Exam: Screening (asymptomatic). Last mammogram was performed 1 year(s) and 2 month(s) ago. Patient History: Menarche at age 11. First Full-Term at age 17. Left ovary removed at age 28. Right ovary removed at age 28. Hysterectomy at age 28. Postmenopausal. Patient has history of breast feeding. 2013, Bilateral Reduction. Maternal aunt had breast cancer, bilateral, under age 50. Risk Values: Sana 5 year model risk: 0.8%. NCI Lifetime model risk: 6.0%. Prior Study Comparison: 01/24/2011 Bilateral Screening Mammogram, [facility]. 01/26/2015 Bilateral Screening Mammogram, [facility]. 08/28/2022 Bilateral MG 3D screening mammo w/cad, [facility]. Tissue Density: The breast tissue is heterogeneously dense. This may lower the sensitivity of mammography. Findings: Analyzed By CAD. There is no suspicious group of microcalcifications or new suspicious mass. Benign-appearing calcifications bilaterally. Overall Assessment: Benign, BI-RAD 2 Management: Screening Mammogram of both breasts in [address] [facility] will attempt to contact patient to return for supplemental views and ultrasound if indicated. Patient should continue monthly self-breast exams. A clinical breast exam by your physician is recommended on an annual basis. This exam should not preclude additional follow-up of suspicious palpable abnormalities. Note on Sana scores and lifetime risk: 1. A Sana score greater than 3% is considered moderate risk. If this is the case, consider specialist referral to assess eligibility for a risk reducing agent. 2. If overall lifetime risk for the development of breast cancer is 20% or higher, the patient may qualify for future screening with alternating mammogram and breast MRI. Electronically signed and approved by: Kevin Lu DO
== END | disposition home or self-care (01) ==
LOC: RADMAMWWP 13:24
PROVIDERS: ATTEND Obstetrics & Gynecology
DX: Z12.31 Encounter for screening mammogram for malignant neoplasm of breast (principal); Z80.3 Family history of malignant neoplasm of breast; Z78.0 Asymptomatic menopausal state
CPT/HCPCS: 77063; 77067

== ENCOUNTER 2023-12-10 06:28 | Emergency (ER) | payer OTHER ==
--- NOTE | 2023-12-10 07:38 | XR ---
EXAMINATION TYPE: XR chest 2V DATE OF EXAM: 12/10/2023 COMPARISON: 12/20/2022 INDICATION: Chest pain TECHNIQUE: Frontal and lateral views of the chest are obtained. FINDINGS: The heart size is normal. The pulmonary vasculature is normal. Streaky atelectasis is present at the right lung base. Some plate atelectasis may be at the left lung base.. IMPRESSION: 1. Bibasilar streak atelectasis.
--- NOTE | 2023-12-10 07:39 | ED ---
General Adult HPI - General Chief complaint: Chest Pain Stated complaint: ALEXEI, chest pain Time Seen by Provider: 12/10/23 07:25 Source: patient, RN notes reviewed, old records reviewed Mode of arrival: ambulatory Limitations: no limitations - History of Present Illness Initial comments: Is a 53-year-old female who presents emergency department for 1 week of chest tightness and pain. Has a history of asthma as well as a hiatal hernia. Has b een dealing with this discomfort as well as shortness of breath for the last week. Is unchanged. Is seen her PCP as well as went to [facility]. States she was worked up for a blood clot there as well as heart issues and workup was unremarkable. She was discharged home. She has been on prednisone, albuterol, doxycycline without any improvement in her symptoms as a states it could be her hiatal hernia or bronchitis. She has noticed worsening dyspnea as well as exertional dyspnea. Denies any significant leg edema. Endorses some mild orthopnea but denies PND. No history of blood clots or recent long distance travel. No other acute complaints at this time. No cardiac history. Presents for further evaluation. She was feeling no better this morning and decided to come get reevaluated. I evaluated the patient when she was placed in room 2. Workup was started in triage. - Related Data Home Medications Medication Instructions Recorded Confirmed Ergocalciferol (Vitamin D2) 50,000 unit PO FR 10/14/16 12/10/23 [Vitamin D2] Albuterol Inhaler [Ventolin Hfa 2 puff INHALATION RT-Q6H PRN 08/31/19 12/10/23 Inhaler] Vitamin C/Biotin [Hair, Skin and 1 tab PO DAILY 04/18/21 12/10/23 Nails Chew] Omeprazole 40 mg PO DAILY 08/24/23 12/10/23 Collagen Powder (Unknown Strength) 2 scoop PO DAILY 12/10/23 12/10/23 Doxycycline Monohydrate 100 mg PO BID 12/10/23 12/10/23 Fluticasone/Umeclidin/Vilanter 1 puff INHALATION RT-DAILY 12/10/23 12/10/23 [Trelegy Ellipta 100-62.5-25] Ibuprofen [Motrin] 800 mg PO Q8H PRN 12/10/23 12/10/23 Ketoconazole 2% Cream [Nizoral 2%] 1 applic TOPICAL BID PRN 12/10/23 12/10/23 LORazepam [Ativan] 0.5 mg PO DAILY PRN 12/10/23 12/10/23 Montelukast [Singulair] 10 mg PO HS 12/10/23 12/10/23 Pregabalin [Lyrica] 75 mg PO BID PRN 12/10/23 12/10/23 Spironolactone [Aldactone] 25 mg PO DIRECTED 12/10/23 12/10/23 predniSONE See Taper PO DIRECTED 12/10/23 12/10/23 rOPINIRole HCL [Requip] 2 mg PO HS PRN 12/10/23 12/10/23 Allergies Allergy/AdvReac Type Severity Reaction Status Date / Time No Known Allergies Allergy Verified 12/10/23 09:38 Review of Systems ROS Statement: Those systems with pertinent positive or pertinent negative responses have been documented in the HPI. Review of Systems: CONST: Denies fever EYES: Denies blurry vision ENT: Denies nasal congestion C/V: Endorses chest tightness RESP: Endorses shortness of breath GI: Denies abdominal pain : Denies dysuria SKIN: Denies rash. MSK: Denies joint pain. NEURO: Denies headache ROS Other: All systems not noted in ROS Statement are negative. Past Medical History Past Medical History: Asthma, Eye Disorder, GERD/Reflux, Hypertension, Sleep Apnea/CPAP/BIPAP Additional Past Medical History / Comment(s): Migraines, bilateral NARROW LENS GLAUCOMA. DOES NOT USE CPAP, RLS, alopecia. Chronic back pain. History of Any Multi-Drug Resistant Organisms: None Reported Past Surgical History: Breast Surgery, Cholecystectomy, Hernia Repair, Hysterectomy Additional Past Surgical History / Comment(s): Bilateral breast reduction, bilateral eye laser surgery, colonoscopy, hiatal hernia repair, pain clinic procedures. Past Anesthesia/Blood Transfusion Reactions: Previous Problems w/ Anesthesia, Motion Sickness, Postoperative Nausea & Vomiting (PONV) Additional Past Anesthesia/Blood Transfusion Reaction / Comment(s): "Aspiration while under anesthesia for colonoscopy.". Past Psychological History: Anxiety, Depression, Panic Disorder Smoking Status: Never smoker Past Alcohol Use History: Occasional Past Drug Use History: None Reported - Past Family History Brother(s) Family Medical History: Cancer Additional Family Medical History / Comment(s): COLON CANCER. General Exam - General Exam Comments Initial Comments: General: Appears in no acute distress. HEAD: Normal with no signs of head trauma. EYES: PERRLA, EOMI, conjunctiva normal, no discharge. ENT: Hearing grossly intact, normal oropharynx. RESPIRATORY: Clear breath sounds bilaterally. No wheezes, rales, or rhonchi. No significant wheezing. No obvious respiratory distress. Normoxic on room air. C/V: Regular rate and rhythm. S1 and S2 auscultated. No significant peripheral edema. Peripheral pulses 2+ and intact throughout. ABD: Abd is soft, nontender, nondistended EXT: Normal range of motion, no obvious deformity SKIN: No rashes or lesions observed on exposed skin. NEURO: Alert and oriented x 4. Cranial nerves II-XII intact. No focal sensory or strength deficits. Limitations: no limitations Course Vital Signs 12/10/23 12/10/23 12/10/23 06:31 06:33 08:00 Temperature 97.9 F Pulse Rate 75 71 72 Respiratory 20 18 17 Rate Blood Pressure 141/94 144/76 126/115 O2 Sat by Pulse 95 96 96 Oximetry 12/10/23 12/10/23 12/10/23 09:00 10:00 13:32 Temperature 98.0 F Pulse Rate 65 69 73 Respiratory 17 18 Rate Blood Pressure 128/83 O2 Sat by Pulse 96 97 Oximetry Medical Decision Making - Medical Decision Making Was pt. sent in by a medical professional or institution ([facility], [facility], urgent care, hospital, or [facility]...) When possible be specific @ -No Did you speak to anyone other than the patient for history (EMS, parent, family, police, friend...)? What history was obtained from this source @ -No Did you review nursing and triage notes (agree or disagree)? Why? @ -I reviewed and agree with nursing and triage notes Were old charts reviewed (outside hosp., previous admission, EMS record, old EKG, old radiological studies, urgent care reports/EKG's, [facility] records)? Report findings @ -Old charts reviewed Differential Diagnosis (chest pain, altered mental status, abdominal pain women, abdominal pain men, vaginal bleeding, weakness, fever, dyspnea, syncope, headache, dizziness, GI bleed, back pain, seizure, CVA, palpatations, mental health, musculoskeletal)? @ -Differential Chest Pain: Stable Angina, Unstable Angina, STEMI, NSTEMI Aortic Dissection, Pneumothorax, Musculoskeletal, Esophageal Spasm GERD, Cholecystitis, Pancreatitis, Zoster, this is not meant to be an all-inclusive list. Differential Dyspnea: Coronary syndrome, arrhythmia, tamponade, asthma, COPD, pulmonary embolism, pneumonia, pneumothorax, pulmonary effusion, anaphylaxis, diabetic ketoacidosis, flailed chest, pulmonary contusion, diaphragmatic rupture, anemia, neuromuscular, this is not meant to be an all-inclusive list. EKG interpreted by me (3pts min.). @ -As above X-rays interpreted by me (1pt min.). @ -Chest x-ray reveals no obvious acute cardiopulmonary process. CT interpreted by me (1pt min.). @ -CT PE negative for pulmonary embolism. U/S interpreted by me (1pt. min.). @ -None done What testing was considered but not performed or refused? (CT, X-rays, U/S, labs)? Why? @ -None What meds were considered but not given or refused? Why? @ -None Did you discuss the management of the patient with other professionals (sammy harrison i.e. , PA, [facility], lab, RT, psych nurse, social security assessor, pediatric intensive physician, teacher, commercial loan officer, case management associate)? Give summary @ -No Was smoking cessation discussed for >3mins.? @ -No Was critical care preformed (if so, how long)? @ -No Were there social determinants of health that impacted care today? How? (Homelessness, low income, unemployed, alcoholism, drug addiction, transportation, low edu. Level, literacy, decrease access to med. care, care home, rehab)? @ -No Was there de-escalation of care discussed even if they declined (Discuss DNR or withdrawal of care, Hospice)? DNR status @ -No What co-morbidities impacted this encounter? (DM, HTN, Smoking, COPD, CAD, Cancer, CVA, ARF, Chemo, Hep., AIDS, mental health diagnosis, sleep apnea, morbid obesity)? @ -Asthma. Was patient admitted / discharged? Hospital course, mention meds given and route, prescriptions, significant lab abnormalities, going to OR and other pertinent info. @ -Based on the patient's presentation and physical exam, patient presents to the emergency department with 1 week of symptoms of chest tightness as well as shortness of breath. Has been worked up at another emergency department for cardiac or possible PE which she states was negative. Presents for further evaluation at this time his symptoms have not improved. She was previously diagnosed with bronchitis. Has a history of mild asthma but has never required admission for it in the past. We will obtain cardiopulmonary workup. She will be given aspirin, breathing treatment, Toradol for symptomatic relief. Vital signs are currently within acceptable limits. Patient was in agreement this plan. EKG shows no signs of acute ischemia. Chest x-ray unremarkable. Patient's laboratory studies remarkable for D-dimer of 0.46. Troponin undetectable. BNP within normal limits. Negative viral swabs. Remainder the labs unremarkable. Patient was updated on the results of this. I did discuss options with her and even though the D-dimer is negative, we agreed to obtain CT imaging of the chest. There was a long delay in obtaining this due to large volume of patients requiring the CT scanner. When patient's CT was finally completed, negative for PE or other acute process. At this time, ambulatory pulse ox within acceptable limits. I discussed options with her. She would like to go home at this time and I believe that is reasonable. She is already on antibiotics, as well as steroids and breathing treatments prescribed by her primary care provider. I recommended close follow- up with them. She may ultimately need an echo however at this time I do not see an absolute need to admit her. Symptoms have been ongoing for 1 week. Bron brady is a reasonable diagnosis for her. She was in agreement this plan. Strict return precautions discussed. I instructed the patient to follow up with their PCP in the next 1-3 days. I explained that the patient should return to the emergency department if they experience any worsening symptoms. Strict return precautions were discussed with the patient. The patient expressed understanding of these instructions. I answered all questions that the patient had. The patient was discharged home in good condition with their prescriptions and follow up information. Undiagnosed new problem with uncertain prognosis? @ -No Drug Therapy requiring intensive monitoring for toxicity (Heparin, Nitro, Insulin, Cardizem)? @ -No Were any procedures done? @ -No Diagnosis/symptom? @ -Bronchitis Acute, or Chronic, or Acute on Chronic? @ -Acute Uncomplicated (without systemic symptoms) or Complicated (systemic symptoms)? @ -Complicated Side effects of treatment? @ -None Exacerbation, Progression, or Severe Exacerbation] @ -No Poses a threat to life or bodily function? @ -Unlikely - Lab Data Result diagrams: 12/10/23 06:55 12/10/23 06:55 Lab Results 12/10/23 12/10/23 12/10/23 Range/Units 06:55 06:55 06:55 WBC 9.4 (3.8-10.6) k/uL RBC 4.97 (3.80-5.40) m/uL Hgb 15.6 (11.4-16.0) gm/dL Hct 46.3 H (34.0-46.0) % MCV 93.2 (80.0-100.0) fL MCH 31.4 (25.0-35.0) pg MCHC 33.7 (31.0-37.0) g/dL RDW 13.1 (11.5-15.5) % Plt Count 248 (150-450) k/uL MPV 8.3 Neutrophils % 84 % Lymphocytes % 11 % Monocytes % 3 % Eosinophils % 0 % Basophils % 0 % Neutrophils # 7.9 H (1.3-7.7) k/uL Lymphocytes # 1.1 (1.0-4.8) k/uL Monocytes # 0.3 (0-1.0) k/uL Eosinophils # 0.0 (0-0.7) k/uL Basophils # 0.0 (0-0.2) k/uL PT 10.1 (10.0-12.5) sec INR 0.9 (<1.2) APTT 22.7 (22.0-30.0) sec D-Dimer (<0.60) mg/L FEU Sodium 139 (137-145) mmol/L Potassium 4.6 (3.5-5.1) mmol/L Chloride 107 (98-107) mmol/L Carbon Dioxide 20 L (22-30) mmol/L Anion Gap 12 mmol/L BUN 23 H (7-17) mg/dL Creatinine 0.62 (0.52-1.04) mg/dL Est GFR (CKD-EPI)AfAm >90 (>60 ml/min/1.73 sqM) Est GFR (CKD-EPI)NonAf >90 (>60 ml/min/1.73 sqM) Glucose 136 H (74-99) mg/dL Calcium 9.7 (8.4-10.2) mg/dL Magnesium 2.1 (1.6-2.3) mg/dL Total Bilirubin 0.9 (0.2-1.3) mg/dL AST 25 (14-36) U/L ALT 41 H (4-34) U/L Alkaline Phosphatase 80 (38-126) U/L Troponin I (0.000-0.034) ng/mL NT-Pro-B Natriuret Pep pg/mL Total Protein 7.3 (6.3-8.2) g/dL Albumin 4.4 (3.5-5.0) g/dL Influenza Type A (PCR) (Not Detectd) Influenza Type B (PCR) (Not Detectd) RSV (PCR) (Not Detectd) SARS-CoV-2 (PCR) (Not Detectd) 12/10/23 12/10/23 12/10/23 Range/Units 06:55 06:55 07:56 WBC (3.8-10.6) k/uL RBC (3.80-5.40) m/uL Hgb (11.4-16.0) gm/dL Hct (34.0-46.0) % MCV (80.0-100.0) fL MCH (25.0-35.0) pg MCHC (31.0-37.0) g/dL RDW (11.5-15.5) % Plt Count (150-450) k/uL MPV Neutrophils % % Lymphocytes % % Monocytes % % Eosinophils % % Basophils % % Neutrophils # (1.3-7.7) k/uL Lymphocytes # (1.0-4.8) k/uL Monocytes # (0-1.0) k/uL Eosinophils # (0-0.7) k/uL Basophils # (0-0.2) k/uL PT (10.0-12.5) sec INR (<1.2) APTT (22.0-30.0) sec D-Dimer 0.46 (<0.60) mg/L FEU Sodium (137-145) mmol/L Potassium (3.5-5.1) mmol/L Chloride (98-107) mmol/L Carbon Dioxide (22-30) mmol/L Anion Gap mmol/L BUN (7-17) mg/dL Creatinine (0.52-1.04) mg/dL Est GFR (CKD-EPI)AfAm (>60 ml/min/1.73 sqM) Est GFR (CKD-EPI)NonAf (>60 ml/min/1.73 sqM) Glucose (74-99) mg/dL Calcium (8.4-10.2) mg/dL Magnesium (1.6-2.3) mg/dL Total Bilirubin (0.2-1.3) mg/dL AST (14-36) U/L ALT (4-34) U/L Alkaline Phosphatase (38-126) U/L Troponin I <0.012 (0.000-0.034) ng/mL NT-Pro-B Natriuret Pep 47 pg/mL Total Protein (6.3-8.2) g/dL Albumin (3.5-5.0) g/dL Influenza Type A (PCR) (Not Detectd) Influenza Type B (PCR) (Not Detectd) RSV (PCR) (Not Detectd) SARS-CoV-2 (PCR) (Not Detectd) 12/10/23 Range/Units 07:56 WBC (3.8-10.6) k/uL RBC (3.80-5.40) m/uL Hgb (11.4-16.0) gm/dL Hct (34.0-46.0) % MCV (80.0-100.0) fL MCH (25.0-35.0) pg MCHC (31.0-37.0) g/dL RDW (11.5-15.5) % Plt Count (150-450) k/uL MPV Neutrophils % % Lymphocytes % % Monocytes % % Eosinophils % % Basophils % % Neutrophils # (1.3-7.7) k/uL Lymphocytes # (1.0-4.8) k/uL Monocytes # (0-1.0) k/uL Eosinophils # (0-0.7) k/uL Basophils # (0-0.2) k/uL PT (10.0-12.5) sec INR (<1.2) APTT (22.0-30.0) sec D-Dimer (<0.60) mg/L FEU Sodium (137-145) mmol/L Potassium (3.5-5.1) mmol/L Chloride (98-107) mmol/L Carbon Dioxide (22-30) mmol/L Anion Gap mmol/L BUN (7-17) mg/dL Creatinine (0.52-1.04) mg/dL Est GFR (CKD-EPI)AfAm (>60 ml/min/1.73 sqM) Est GFR (CKD-EPI)NonAf (>60 ml/min/1.73 sqM) Glucose (74-99) mg/dL Calcium (8.4-10.2) mg/dL Magnesium (1.6-2.3) mg/dL Total Bilirubin (0.2-1.3) mg/dL AST (14-36) U/L ALT (4-34) U/L Alkaline Phosphatase (38-126) U/L Troponin I (0.000-0.034) ng/mL NT-Pro-B Natriuret Pep pg/mL Total Protein (6.3-8.2) g/dL Albumin (3.5-5.0) g/dL Influenza Type A (PCR) Not Detected (Not Detectd) Influenza Type B (PCR) Not Detected (Not Detectd) RSV (PCR) Not Detected (Not Detectd) SARS-CoV-2 (PCR) Not Detected (Not Detectd) - EKG Data -: EKG Interpreted by Me EKG Comments: 12-lead Electrocardiogram Interpretation Note EKG was reviewed and interpreted by myself. 12-lead ECG performed at 0638 is interpreted by me as revealing normal sinus rhythm at a rate of 78 beats per minute. [place] is normal. OK interval is 141 ms, QRS duration is 85 ms, QTc is 408 ms.. There were no ST or T wave abnormalities to suggest myocardial ischemia or injury. R wave progression across the precordium was satisfactory. By my interpretation this EKG is non-diagnostic for acute ischemia. Similar to EKGs when compared with EKGs from September 2023 in October 2023. Disposition Clinical Impression: Bronchitis, Dyspnea Disposition: HOME SELF-CARE Condition: Good Instructions (If sedation given, give patient instructions): Acute Bronchitis (ED) Is patient prescribed a controlled substance at d/c from ED?: No Referrals: Tara Valencia DO [Primary Care Provider] - 1-2 days Time of Disposition: 12:59
[2023-12-10 07:41] LABS: INR 0.9 (<1.2); Partial Thromboplastin Time 22.7 sec (22.0-30.0); Prothrombin Time 10.1 sec (10.0-12.5)
[2023-12-10 07:47] LABS: Basophils % (A) 0 %; Eosinophils % (A) 0 %; HCT 46.3 % (34.0-46.0); HGB 15.6 gm/dL (11.4-16.0); Lymphocytes # (A) 1.1 k/uL (1.0-4.8); Lymphocytes % (A) 11 %; MCH 31.4 pg (25.0-35.0); MCHC 33.7 g/dL (31.0-37.0); MCV 93.2 fL (80.0-100.0); Mean Platelet Volume 8.3; Monocytes # (A) 0.3 k/uL (0-1.0); Monocytes % (A) 3 %; Neutrophils # (A) 7.9 k/uL (1.3-7.7); Neutrophils % (A) 84 %; Platelet Count 248 k/uL (150-450); RBC 4.97 m/uL (3.80-5.40); RDW 13.1 % (11.5-15.5); WBC 9.4 k/uL (3.8-10.6)
[2023-12-10] MEDS: ASPIRIN 81 MG PO STA (07:49)
[2023-12-10] MEDS: KETOROLAC 15 MG/ML 1 ML VIAL IVP STA (07:50)
[2023-12-10 07:53] LABS: ALT 41 U/L (4-34); AST 25 U/L (14-36); African American GFR (CKD) >90 (>60 ml/min/1.73 sqM); Albumin 4.4 g/dL (3.5-5.0); Alkaline Phosphatase 80 U/L (38-126); Anion Gap 12 mmol/L; Blood Urea Nitrogen 23 mg/dL (7-17); Calcium 9.7 mg/dL (8.4-10.2); Carbon Dioxide 20 mmol/L (22-30); Chloride 107 mmol/L (98-107); Glucose 136 mg/dL (74-99); Magnesium 2.1 mg/dL (1.6-2.3); Non-African American GFR(CKD) >90 (>60 ml/min/1.73 sqM); Potassium 4.6 mmol/L (3.5-5.1); Sodium 139 mmol/L (137-145); Total Bilirubin 0.9 mg/dL (0.2-1.3); Total Protein 7.3 g/dL (6.3-8.2)
[2023-12-10] MEDS: IPRATROPIUM-ALBUTEROL 3 ML NEB INHALATION STA (08:59)
[2023-12-10] MEDS: MAG HYDROX/AL HYDROX/SIMETH 30 ML, HYOSCYAMINE ELIXIR 10 ML, LIDOCAINE VISCOUS 2% 10 ML PO STA (09:01)
--- NOTE | 2023-12-10 11:07 | CT ---
EXAMINATION TYPE: CT chest angio for PE CT DLP: 368.6 mGycm, Automated exposure control for dose reduction was used. DATE OF EXAM: 12/10/2023 10:12 AM COMPARISON: Chest radiograph from same day. Multiple CTs of the chest with most recent on . CLINICAL INDICATION:Female, 53 years old with history of unexplained dyspnea, chest tightness; Unexpl ained dyspnea, chest tightness TECHNIQUE/CONTRAST: CTA scan of the thorax is performed without and with IV Contrast, patient injected with 100 ml mL of Isovue 370, MIP images are created and reviewed these are created on a separate workstation.. FINDINGS: Elevation of the right hemidiaphragm which appears chronic is present. There is associated compressiv e atelectasis or consolidation right lung base. Pulmonary Artery: There is no evidence for a filling defect within the pulmonary vasculature to sugge st acute pulmonary embolism. The pulmonary artery is of normal size. Lungs/Pleura: The size is aforementioned atelectasis in the right lung base there is much smaller Atelectasis in the left base. There is otherwise No evidence of focal consolidation, pleural effusion or pneumothorax. Airway: Large airways are patent. Heart: Heart is within normal limits for size. Vasculature: No evidence of aortic aneurysm. Mediastinum: No gross evidence of adenopathy. Musculoskeletal: No acute osseous abnormalities Soft Tissues: Unremarkable. Lower neck: No significant findings. Upper Abdomen: No significant findings. IMPRESSION: 1. No evidence of pulmonary embolism. 2. Lung base atelectasis. Signifying possible pneumonia, likely chronic.
[2023-12-10 13:38] VITALS: BP 128/83; PULSE 73; RESP 18; TEMP 98
== END 2023-12-10 13:35 | disposition home or self-care (01) ==
LOC: EC 06:28
DX: J40 Bronchitis, not specified as acute or chronic (principal); Z90.49 Acquired absence of other specified parts of digestive tract
CPT/HCPCS: 36415; 94640; 93005; 85379; 83880; 80053; 83735; 84484; 85025; 85610; 85730; 87636; 71046; 71275; 99285; 96374; J1885; Q9967

== ENCOUNTER → 2023-12-16 | Outpatient (CLI) | payer OTHER ==
[2023-12-16 17:04] VITALS: BP 134/88; RESP 16; TEMP 98.4; BMI 38.2
--- NOTE | 2023-12-16 17:13 | P.BASOAP ---
Subjective Progress Note Date: 12/16/23 Severe GERD. Medications not doing it. Added carafate. Add yogurt. Protonix daily. Medications reviewed. Needs bypass. Needs cardiac clearance. Objective - Vital Signs Vital signs: Vital Signs Temp 98.4 F 12/16/23 16:30 Pulse 209 H 12/16/23 16:30 Resp 16 12/16/23 16:30 BP 134/88 12/16/23 16:30 Pulse Ox FiO2 Intake & Output 12/15/23 12/16/23 12/16/23 18:59 06:59 18:59 Weight 94.801 kg Assessment/Plan Plan: Date: 12/16/23 Initial Weight: 88.224 kg Initial BMI: 35.5 Current Weight: 94.801 kg Current BMI: 38.2 Type of Surgery: Total Volume in Band: Previous Volume: Volume Removed: Volume Added: Band Size:
[2023-12-17 11:40] VITALS: PULSE 91
== END ==
LOC: BARWHC3 16:29
PROVIDERS: ATTEND Surgery Plastic and Reconstructive Surgery
DX: E66.01 Morbid (severe) obesity due to excess calories (principal); K21.9 Gastro-esophageal reflux disease without esophagitis; Z68.38 Body mass index [BMI] 38.0-38.9, adult
CPT/HCPCS: 99211

== ENCOUNTER → 2024-01-08 | Outpatient (CLI) | payer OTHER ==
--- NOTE | 2024-01-14 17:41 | CT ---
EXAMINATION TYPE: CT abdomen wo con CT DLP: 772.2 mGycm, Automated exposure control for dose reduction was used. DATE OF EXAM: 01/08/2024 3:45 PM COMPARISON: CT abdomen pelvis most recent from CLINICAL INDICATION:Female, 53 years old with history of K44.9 DIAPHRAGMATIC HERNIA WITHOUT OBSTRUCTI ON OR; epigastric pain TECHNIQUE: Axial CT abdomen wo con;Sagittal and coronal reformats were created on a separate worksta tion. Contrast used: mL of , (none if empty) Oral contrast used: with Oral Contrast (none if empty) FINDINGS: LOWER CHEST: Unremarkable ABDOMEN LIVER: Unremarkable GALLBLADDER AND BILE DUCTS: Absent, suspected cholecystectomy. PANCREAS: Unremarkable. SPLEEN: Unremarkable. ADRENAL GLANDS: Unremarkable. KIDNEYS AND URETERS: No evidence of hydronephrosis or renal calculus. The ureters are unremarkable. STOMACH AND BOWEL: Stomach and duodenum are unremarkable. No evidence of bowel obstruction. PERITONEUM/RETROPERITONEUM: No evidence of pneumoperitoneum or free fluid. VASCULATURE: No evidence of aortic aneurysm. MUSCULOSKELETAL: No acute osseous abnormalities LYMPH NODES: No gross evidence for lymphadenopathy. SOFT TISSUE/ABDOMINAL WALL: Unremarkable IMPRESSION: 1. No acute process is detected that would explain the patient's symptoms.
== END | disposition home or self-care (01) ==
LOC: RADCTMAIN 14:50
PROVIDERS: ATTEND Family Medicine
DX: K44.9 Diaphragmatic hernia without obstruction or gangrene (principal); R10.13 Epigastric pain
CPT/HCPCS: 74150

== ENCOUNTER → 2024-02-25 | Outpatient (CLI) | payer OTHER ==
--- NOTE | 2024-02-25 11:23 | FL ---
EXAMINATION TYPE: FL sniff test without CXR DATE OF EXAM: 02/25/2024 COMPARISON: NONE HISTORY: G47.33 OBSTRUCTIVE SLEEP APNEA (ADULT) (PEDIATRIC) TECHNIQUE: rsion FINDINGS: Fluoroscopic sniff test was performed. There is normal in incursion and excursion of the he midiaphragms. IMPRESSION: No evidence for diaphragmatic paralysis.
== END | disposition home or self-care (01) ==
LOC: RADUSWWP 09:48
PROVIDERS: ATTEND Internal Medicine Pulmonary Disease
DX: G47.33 Obstructive sleep apnea (adult) (pediatric) (principal); K21.9 Gastro-esophageal reflux disease without esophagitis
CPT/HCPCS: 76000

== ENCOUNTER → 2024-11-18 | Outpatient (CLI) | payer OTHER ==
--- NOTE | 2024-11-18 10:03 | MM ---
Reason for Exam: Screening (asymptomatic). Last mammogram was performed 1 year(s) and 1 month(s) ago. Patient History: Menarche at age 11. First Full-Term at age 17. Left ovary removed at age 28. Right ovary removed at age 28. Hysterectomy at age 28. Postmenopausal. Patient has history of breast feeding. 2013, Bilateral Reduction. Maternal aunt had breast cancer, bilateral, under age 50. Risk Values: Sana 5 year model risk: 0.9%. NCI Lifetime model risk: 5.9%. Prior Study Comparison: 01/26/2015 Bilateral Screening Mammogram, [facility]. 08/28/2022 Bilateral MG 3D screening mammo w/cad, [facility]. 11/06/2023 Bilateral MG 3D screening mammo w/cad, [facility]. Tissue Density: The breasts are almost entirely fatty. Findings: Analyzed By CAD. Fat necrosis calcifications far posterior inferior right MLO view remain unchanged. Dystrophic calcifications posterior central left breast also unchanged. There is no suspicious group of microcalcifications or new suspicious mass in either breast. Overall Assessment: Benign, BI-RAD 2 Management: Screening Mammogram of both breasts in 1 year. Patient should continue monthly self-breast exams. A clinical breast exam by your physician is recommended on an annual basis. This exam should not preclude additional follow-up of suspicious palpable abnormalities. Note on Sana scores and lifetime risk: 1. A Sana score greater than 3% is considered moderate risk. If this is the case, consider specialist referral to assess eligibility for a risk reducing agent. 2. If overall lifetime risk for the development of breast cancer is 20% or higher, the patient may qualify for future screening with alternating mammogram and breast MRI. [facility], , 11/18/2024 10:00 AM. Electronically signed and approved by: Becky Fox M.D. Radiologist
== END | disposition home or self-care (01) ==
LOC: RADMAMWWP 09:31
PROVIDERS: ATTEND Family Medicine
DX: Z12.31 Encounter for screening mammogram for malignant neoplasm of breast (principal); R92.313 Mammographic fatty tissue density, bilateral breasts; Z78.0 Asymptomatic menopausal state; Z80.3 Family history of malignant neoplasm of breast
CPT/HCPCS: 77063; 77067

== ENCOUNTER → 2025-04-11 | Outpatient (CLI) | payer OTHER | LOC: CPPFTMAIN 16:51 | PROVIDERS: ATTEND Internal Medicine Critical Care Medicine | DX: J45.909 Unspecified asthma, uncomplicated (principal) | CPT/HCPCS: 94060; 94726; 94729 ==